=== PATIENT | male | born 1960 | race Caucasian/White ===

== ENCOUNTER 2016-07-09 15:45 | Emergency (ER) | payer MEDICARE, MEDICAID ==
[2016-07-09] MEDS ORDERED: ASPIRIN 81 MG TABLET, CHEWABLE PO ONE (15:56)
--- NOTE | 2016-07-09 16:02 | EKG REPORT ---
SEVERITY:- BORDERLINE ECG - SINUS RHYTHM BORDERLINE T ABNORMALITIES, ANT-LAT LEADS : Confirmed by: Domo Pompa 09-Jul-2016 16:02:23
--- NOTE | 2016-07-09 16:35 | ER Document Report ---
ED Cardiac - General Mode of Arrival: Medic Information source: Patient TRAVEL OUTSIDE OF THE [place] IN LAST 30 DAYS: No - HPI Patient complains to provider of: Chest pain Associated symptoms: Other - See above <KERRI NEGRETE - Last Filed: 07/09/16 16:58> <GIL HERBERT - Last Filed: 07/09/16 22:27> - General Chief Complaint: Chest Pain Stated Complaint: CHEST PAIN Notes: Patient is a 56 year old male, with a past medical history including stent placement, heart attacks, and bipolar disorder, who presents to the emergency department via EMS complaining of chest pain onset at 1400 today. Patient reports that he was standing in the kitchen making dessert when he had sudden onset chest pain in his right chest that felt like stabbing. Patient states that he then went to the bedroom to lie down and took one Nitro with no relief, then took a second with little relief. En route patient was given Nitro paste and reports he felt much better. Patent denies nausea and diaphoresis. Patient states he has not eaten anything today. Patient has a known calcified gallstone and a known stable spiculated calcified mass in his stomach. PCP: Dr. Sosa Crate Liner: Dr. Colon (KERRI NEGRETE) - Related Data Allergies/Adverse Reactions: No Known Drug Allergies Allergy (Verified 07/09/16 21:32) Cheese Allergy (Uncoded 11/12/15 12:20) VINEGAR Allergy (Uncoded 11/12/15 12:20) Hives Past Medical History - General Information source: Patient - Social History Smoking Status: Unknown if Ever Smoked Family History: DM, Reviewed & Not Pertinent - Past Medical History Cardiac Medical History: Reports: Hx Heart Attack - x3, Hx Hypercholesterolemia , Hx Hypertension Pulmonary Medical History: Reports: Hx Asthma Endocrine Medical History: Reports: Hx Diabetes Mellitus Type 2 Musculoskeltal Medical History: Reports Hx Arthritis, Reports Hx Musculoskeletal Deformity, Reports Hx Musculoskeletal Trauma Psychiatric Medical History: Reports: Hx Bipolar Disorder, Hx Depression, Hx Schizophrenia Traumatic Medical History: Reports: Hx Fractures Past Surgical History: Reports: Hx Cardiac Catheterization, Hx Cardiac Surgery - stents, Hx Orthopedic Surgery - Bilateral total knee, Hx Tonsillectomy - Immunizations Immunizations up to date: Yes Hx Diphtheria, Pertussis, Tetanus Vaccination: Yes - 2013 Hx Pneumococcal Vaccination: 07/28/13 <KERRI NEGRETE - Last Filed: 07/09/16 16:58> Review of Systems - Review of Systems Constitutional: denies: Diaphoresis EENT: No symptoms reported Cardiovascular: See HPI, Chest pain Respiratory: No symptoms reported Gastrointestinal: denies: Nausea Genitourinary: No symptoms reported Male Genitourinary: No symptoms reported Musculoskeletal: No symptoms reported Skin: No symptoms reported Hematologic/Lymphatic: No symptoms reported Neurological/Psychological: No symptoms reported -: Yes All other systems reviewed and negative <KERRI NEGRETE - Last Filed: 07/09/16 16:58> Physical Exam - Vital signs Interpretation: Normal - General General appearance: Appears well, Alert - HEENT Head: Normocephalic, Atraumatic Eyes: Normal Pupils: PERRL - Respiratory Respiratory status: No respiratory distress Chest status: Nontender Breath sounds: Normal Chest palpation: Normal - Cardiovascular Rhythm: Regular Heart sounds: Normal auscultation Murmur: No - Abdominal Inspection: Normal Distension: No distension Bowel sounds: Normal Tenderness: Tender - Tenderness to palpation of RUQ Organomegaly: No organomegaly - Extremities General upper extremity: Normal inspection General lower extremity: Normal inspection. No: Edema - Neurological Neuro grossly intact: Yes Cognition: Normal Orientation: AAOx4 [place] Coma Scale Eye Opening: Spontaneous Sunil Coma Scale Verbal: Oriented Sunil Coma Scale Motor: Obeys Commands Sunil Coma Scale Total: 15 Speech: Normal - Psychological Associated symptoms: Normal affect, Normal mood - Skin Skin Temperature: Warm Skin Moisture: Dry Skin Color: Normal <KERRI NEGRETE - Last Filed: 07/09/16 16:58> Course <KERRI NEGRETE - Last Filed: 07/09/16 16:58> - Laboratory Result Diagrams: 07/09/16 20:27 07/09/16 15:56 - Diagnostic Test Radiology reviewed: Image reviewed, Reports reviewed - Gallbladder ultrasound shows a fatty liver, otherwise unremarkable study. No acute finding on portable chest x-ray. <GIL HERBERT - Last Filed: 07/09/16 22:27> - Re-evaluation Re-evalutation: 07/09/16 22:20 The patient's exam shows tenderness in the right upper quadrant on exam. Oral gallbladder ultrasound was unremarkable other than fatty liver. The EKG does not show acute ischemic changes. A troponin drawn over 7 hours after the onset of pain remains undetectable. He did describe the pain as being a tight, sharp pain in the right chest. 07/09/16 22:24 The patient is quite comfortable at this time. He is actually been napping. He does not want home, and is actually anxious to go home. (GIL HERBERT) - Vital Signs Vital signs: Temp Pulse Resp BP Pulse Ox 18 108/71 97 07/09/16 20:01 07/09/16 20:01 07/09/16 16:20 - Laboratory Laboratory results interpreted by me: 07/09/16 15:56 Glucose 166 H Discharge <KERRI NEGRETE - Last Filed: 07/09/16 16:58> <GIL HERBERT - Last Filed: 07/09/16 22:27> - Discharge Clinical Impression: Right upper quadrant abdominal pain, Right-sided chest pain Condition: Stable Disposition: HOME, SELF-CARE Additional Instructions: Abdominal Pain: There are many causes of abdominal pain. Pain can mean a serious problem requiring surgery (such as appendicitis). It can also be an innocent problem that goes away on its own (such as a viral infection). Often, time must pass to determine the cause of pain. The physician does not feel that hospitalization is necessary, at present. Things may change within the next 24 hours. Call the doctor or come back for re- examination if any problems occur, such as: (1) Pain that becomes more severe, steady, or becomes concentrated in one specific area. Also, pain that is more severe with movement or coughing. (2) Vomiting that persists or becomes more frequent. (3) Blood in the vomitus, urine, or bowel movements. Blood in the stool may have a tarry or black appearance. (4) Shaking chills or fever greater than 100 degrees F. (5) The abdomen becomes more distended or swollen. (6) Bowel movements cease. (7) Failure to improve as expected. Chest Pain of Unclear Cause: The exact cause of your chest pain isn't clear. Fortunately, there is no evidence of a dangerous medical condition. Further testing may be required to find the source of the pain. Most often, we find that this pain is coming from the chest wall -- the muscles or rib joints in the chest. But chest pain can come from the lung and lung lining, the esophagus, the heart valves or heart lining, and even the stomach or gallbladder. Rest. Eat lightly until the pain is gone. We may prescribe medicine for pain and inflammation. You should call the physician immediately if the pain radiates to the shoulder, jaw or arms; if you start to run a fever or develop a cough; or if you develop shortness of breath, or other new or alarming symptoms. CONTINUE YOUR REGULAR MEDICATIONS. REST. FOLLOW UP WITH YOUR DOCTOR TUESDAY FOR RECHECK. RETURN TO THE EMERGENCY ROOM IF ANY NEW OR WORSENING SYMPTOMS. Referrals: DONALD SOSA MD [Primary Care Provider] - 07/12/16 Scribe Attestation: 07/09/16 22:26 I personally performed the services described in the documentation, reviewed and edited the documentation which was dictated to the scribe in my presence, and it accurately records my words and actions. (GIL HERBERT) Scribe Documentation - Scribe Written by Marian:: marian Jenkins, 07/09/16, [id number] acting as scribe for :: Leila <KERRI NEGRETE - Last Filed: 07/09/16 16:58>
[2016-07-09 20:05] LABS: ALANINE AMINOTRANSFERASE 62 U/L (21-72); ALBUMIN 4.4 g/dL (3.5-5.0); ALKALINE PHOSPHATASE 78 U/L (38-126); ANION GAP 13 (5-19); ASPARTATE AMINO TRANSFERASE 56 U/L (17-59); BLOOD UREA NITROGEN 12 mg/dL (7-20); CALCIUM 9.7 mg/dL (8.4-10.2); CARBON DIOXIDE 29 mmol/L (22-30); CHLORIDE 98 mmol/L (98-107); CREATINE KINASE 87 U/L (55-170); CREATININE RESULT 0.81 mg/dL (0.52-1.25); GLUCOSE 166 mg/dL (75-110); POTASSIUM 4.1 mmol/L (3.6-5.0); SODIUM 140.4 mmol/L (137-145); TOTAL PROTEIN 7.3 g/dL (6.3-8.2)
[2016-07-09 20:40] LABS: ABSOLUTE BASOPHILS # (AUTO) 0.1 10^3/uL (0.0-0.2); ABSOLUTE EOSINOPHILS # (AUTO) 0.2 10^3/uL (0.0-0.6); ABSOLUTE LYMPHOCYTES (AUTO) 1.8 10^3/uL (0.5-4.7); ABSOLUTE MONOCYTES (AUTO) 0.5 10^3/uL (0.1-1.4); ABSOLUTE NEUT (AUTO) 4.7 10^3/uL (1.7-8.2); BASOPHILS % (AUTO) 1.5 % (0-2); EOSINOPHILS % (AUTO) 2.1 % (0-6); HEMOGLOBIN 13.9 g/dL (13.5-17.0); HGB HCT DIFFERENCE 0.7; LYMPHOCYTES % (AUTO) 24.5 % (13-45); MEAN CORPUSCULAR HEMOGLOBIN 29.6 pg (27.0-33.4); MEAN CORPUSCULAR VOLUME 87 fl (80-97); MONOCYTES % (AUTO) 7.1 % (3-13); RED BLOOD COUNT 4.71 10^6/uL (4.35-5.55); RED CELL DISTRIBUTION WIDTH 13.2 % (11.5-14.0); SEGMENTED NEUTROPHILS % (AUTO) 64.8 % (42-78); WHITE BLOOD COUNT 7.3 10^3/uL (4.0-10.5)
[2016-07-09 22:07] LABS: CREATINE KINASE MB 0.52 ng/mL (<4.55)
[2016-07-09 22:08] LABS: TROPONIN I < 0.012 ng/mL
[2016-07-09 22:37] VITALS: BP 136/85
== END 2016-07-09 22:41 | disposition home or self-care (01) ==
LOC: ER 15:45
DX: R10.11 Right upper quadrant pain (principal); R07.9 Chest pain, unspecified; I25.2 Old myocardial infarction; F31.9 Bipolar disorder, unspecified
CPT/HCPCS: 36415; 71010; 76705; 80053; 82550; 82553; 84484; 85025; 93005; 93010; 99285

== ENCOUNTER → 2016-07-12 | Outpatient (CLI) | payer MEDICARE, MEDICAID | LOC: RAD 13:58 | PROVIDERS: ATTEND Family Medicine | DX: J45.909 Unspecified asthma, uncomplicated (principal) | CPT/HCPCS: 71020 ==

== ENCOUNTER → 2016-07-19 | Outpatient (CLI) | payer MEDICARE, MEDICAID ==
[2016-07-19 14:37] LABS: ALANINE AMINOTRANSFERASE 60 U/L (21-72); ALBUMIN 4.4 g/dL (3.5-5.0); ALKALINE PHOSPHATASE 89 U/L (38-126); ASPARTATE AMINO TRANSFERASE 37 U/L (17-59); BILIRUBIN,TOTAL 0.6 mg/dL (0.2-1.3); CHOLESTEROL 160.53 mg/dL (0-200); CREATINE KINASE 41 U/L (55-170); Direct HDL 53 mg/dL (>40); TOTAL PROTEIN 7.2 g/dL (6.3-8.2); TRIGLYCERIDES 226 mg/dL (<150)
[2016-07-19 14:48] LABS: DIRECT LDL 87 mg/dL (<100)
[2016-07-19 14:50] LABS: VLDL CHOLESTEROL 45.2 mg/dL (10-31)
== END ==
LOC: OD 13:13
PROVIDERS: ATTEND Internal Medicine Cardiovascular Disease
DX: E78.00 Pure hypercholesterolemia, unspecified (principal); Z79.899 Other long term (current) drug therapy
CPT/HCPCS: 36415; 80061; 80076; 82550

== ENCOUNTER 2016-08-19 09:52 | Emergency (ER) | payer MEDICARE, MEDICAID ==
--- NOTE | 2016-08-19 10:12 | ER Document Report ---
ED Medical Screen (RME) - General Stated Complaint: FALL CHEST PAIN SHORTNESS OF BREATH Time seen by provider: 10:08 Mode of Arrival: Wheelchair Information source: Patient Notes: 56-year-old male presents to ED after a fall last night. He states he hit his chest on the couch his ribs are sore. States he had a stent put in 2-1/2 years ago and he was worried that he had hurt his stent. Lung sounds equal bilaterally CTA I have greeted and performed a rapid initial assessment of this patient. A comprehensive ED assessment and evaluation of the patient, analysis of test results and completion of medical decision making process will be conducted by an additional ED providers. TRAVEL OUTSIDE OF THE [place] IN LAST 30 DAYS: No - Related Data Allergies/Adverse Reactions: No Known Drug Allergies Allergy (Verified 07/09/16 21:32) Cheese Allergy (Uncoded 11/12/15 12:20) VINEGAR Allergy (Uncoded 11/12/15 12:20) Hives Past Medical History - Past Medical History Cardiac Medical History: Reports: Hx Heart Attack - x3, Hx Hypercholesterolemia , Hx Hypertension Pulmonary Medical History: Reports: Hx Asthma Neurological Medical History: Denies: Hx Seizures Endocrine Medical History: Reports: Hx Diabetes Mellitus Type 2 Musculoskeltal Medical History: Reports Hx Arthritis, Reports Hx Musculoskeletal Deformity, Reports Hx Musculoskeletal Trauma Psychiatric Medical History: Reports: Hx Bipolar Disorder, Hx Depression, Hx Schizophrenia Traumatic Medical History: Reports: Hx Fractures Past Surgical History: Reports: Hx Cardiac Catheterization, Hx Cardiac Surgery - stents, Hx Orthopedic Surgery - Bilateral total knee, Hx Tonsillectomy - Immunizations Immunizations up to date: Yes Hx Diphtheria, Pertussis, Tetanus Vaccination: Yes - 2013
--- NOTE | 2016-08-19 11:11 | ER Document Report ---
ED General - General Time seen by provider: 10:45 Mode of Arrival: Wheelchair Information source: Patient TRAVEL OUTSIDE OF THE [place] IN LAST 30 DAYS: No - HPI Onset: Yesterday - see HPI note; last night - General Chief Complaint: Fall Stated Complaint: FALL CHEST PAIN SHORTNESS OF BREATH Notes: Patient is a 56 year old male presenting to the emergency department for rib pain related to a fall. Patient states he tripped over a box and fell on the corner of his couch. Patient states he is having pain in his chest and rib area. Patient has a cardiac history of stents and AR. Patient's PCP is Dr. Camargo. Patient has no known drug allergies. (NASREEN,BALA) - Related Data Allergies/Adverse Reactions: No Known Drug Allergies Allergy (Verified 07/09/16 21:32) Cheese Allergy (Uncoded 08/19/16 10:08) VINEGAR Allergy (Uncoded 08/19/16 10:08) Hives Past Medical History - General Information source: Patient - Social History Smoking Status: Never Smoker Cigarette use (# per day): No Chew tobacco use (# tins/day): No Frequency of alcohol use: None Drug Abuse: None Family History: None, Reviewed & Not Pertinent, DM Patient has suicidal ideation: No Patient has homicidal ideation: No - Past Medical History Cardiac Medical History: Reports: Hx Heart Attack - x3, Hx Hypercholesterolemia , Hx Hypertension Pulmonary Medical History: Reports: Hx Asthma Endocrine Medical History: Reports: Hx Diabetes Mellitus Type 2 Musculoskeltal Medical History: Reports Hx Arthritis, Reports Hx Musculoskeletal Deformity, Reports Hx Musculoskeletal Trauma Psychiatric Medical History: Reports: Hx Bipolar Disorder, Hx Depression, Hx Schizophrenia Traumatic Medical History: Reports: Hx Fractures Past Surgical History: Reports: Hx Cardiac Catheterization, Hx Cardiac Surgery - stent x1, Hx Orthopedic Surgery - Bilateral total knee, Hx Tonsillectomy - Immunizations Immunizations up to date: Yes Hx Diphtheria, Pertussis, Tetanus Vaccination: Yes - 2013 Hx Pneumococcal Vaccination: 07/28/13 Review of Systems - Review of Systems Constitutional: No symptoms reported EENT: No symptoms reported Cardiovascular: No symptoms reported Respiratory: No symptoms reported Gastrointestinal: No symptoms reported Genitourinary: No symptoms reported Male Genitourinary: No symptoms reported Musculoskeletal: See HPI Skin: No symptoms reported Hematologic/Lymphatic: No symptoms reported Neurological/Psychological: No symptoms reported -: Yes All other systems reviewed and negative Physical Exam - Vital signs Interpretation: Normal - General General appearance: Appears well, Alert In distress: Mild - HEENT Head: Normocephalic, Atraumatic Eyes: Normal Pupils: PERRL Mucous membranes: Moist - Respiratory Respiratory status: No respiratory distress Chest status: Tender - mild anterior chest wall tenderness to palpation; no sign of trauma Breath sounds: Normal Chest palpation: Normal - Cardiovascular Rhythm: Regular Heart sounds: Normal auscultation Murmur: No - Abdominal Inspection: Normal Distension: No distension Bowel sounds: Normal Tenderness: Nontender - no splenic pain. No: Guarding, Rebound Organomegaly: No organomegaly - Back Back: Normal, Nontender - Extremities General upper extremity: Normal inspection, Normal ROM, Normal strength General lower extremity: Normal inspection, Normal ROM, Normal strength - Neurological Neuro grossly intact: Yes Cognition: Normal Orientation: AAOx4 Sunil Coma Scale Eye Opening: Spontaneous Sunil Coma Scale Verbal: Oriented Sunil Coma Scale Motor: Obeys Commands Sunil Coma Scale Total: 15 Speech: Normal - Psychological Associated symptoms: Normal affect, Normal mood - Skin Skin Temperature: Warm Skin Moisture: Dry Course - Re-evaluation Re-evalutation: 08/19/16 20:35 I personally performed the services described in the documentation, reviewed and edited the documentation which was dictated to my scribe in my presence, and it accurately records my words and actions. Patient presents to the emergency department with left chest wall pain he tripped over a box striking the left side of his ribs on the couch. He did not hit his head or lose consciousness no head neck back abdominal or lower extremity pain. On examination well-appearing nontoxic no acute distress no external signs of bruising or reproducible tenderness on examination x-ray attention ribs negative. Patient will be discharged a few days with the pain medication he takes without driving or operating machinery for primary care physician to 3 days and discussed reasons for ED return sooner (VIELKA COLEMAN) - Vital Signs Vital signs: Temp Pulse Resp BP Pulse Ox 98.2 F 74 16 124/106 H 96 08/19/16 11:32 08/19/16 11:32 08/19/16 11:32 08/19/16 11:32 08/19/16 11:32 Discharge - Discharge Clinical Impression: mechanical fall, Contusion of rib on left side Condition: Stable Disposition: HOME, SELF-CARE Additional Instructions: Contusion rib Your injury has resulted in a contusion -- a crushing of the deep tissues. No injury to important structures was detected during the physician's exam. Contusions vary in the amount of pain they cause, and in the length of time required for healing. Typically, the area will become bruised, and will remain painful to touch for two or three weeks. However, most patients are back to working and playing within a few days. After the initial period of rest and cold-packs, your symptoms (together with the doctor's recommendations) will determine how rapidly you can get back to full activity. Usually this means "do what feels okay, but don't do things that hurt." If re-examination was recommended, it's important to follow up as instructed. Call the doctor or return any time if pain increases, if swelling becomes severe, if you develop numbness or weakness in an injured extremity, or if any other alarming symptoms occur. Follow-up with your primary care physician in 2-3 days return for increasing worsening or new symptoms Prescriptions: Hydrocodone/Acetaminophen [[place] 5-325 mg Tablet] 1 tab PO TID #12 tablet Referrals: DONALD CAMARGO MD [Primary Care Provider] - Follow up as needed Scribe Documentation - Scribe Written by Shreya:: Bala Maher 08/19/16 15:15 acting as scribe for :: Jewel
--- NOTE | 2016-08-19 11:14 | EKG REPORT ---
SEVERITY:- BORDERLINE ECG - SINUS RHYTHM BORDERLINE T WAVE ABNORMALITIES : Confirmed by: Domo Pompa 19-Aug-2016 11:12:46
[2016-08-19 11:35] VITALS: BP 124/106
== END 2016-08-19 11:34 | disposition home or self-care (01) ==
LOC: ER 09:52
DX: S20.212A Contusion of left front wall of thorax, initial encounter (principal); R06.02 Shortness of breath; W01.190A Fall on same level from slipping, tripping and stumbling with subsequent striking against furniture, initial encounter; E78.00 Pure hypercholesterolemia, unspecified; I10 Essential (primary) hypertension; J45.909 Unspecified asthma, uncomplicated; E11.9 Type 2 diabetes mellitus without complications; Z96.653 Presence of artificial knee joint, bilateral; I25.2 Old myocardial infarction
CPT/HCPCS: 71111; 93005; 93010; 99285

== ENCOUNTER → 2016-09-07 | Outpatient (CLI) | payer MEDICARE, MEDICAID | LOC: RAD 15:17 | PROVIDERS: ATTEND Orthopaedic Surgery Sports Medicine | DX: M25.511 Pain in right shoulder (principal); M75.51 Bursitis of right shoulder ==

== ENCOUNTER → 2016-10-04 | Outpatient (CLI) | payer MEDICARE, MEDICAID ==
--- NOTE | 2016-10-04 19:45 | XCELERA REPORT ---
[address] [address] Transthoracic Echocardiogram Report Name: YURY BAZAN Age: 56 yrs Gender: Male : 1960 Patient Status: Outpatient Patient Location: Study Date: 10/04/2016 01:06 PM Height: 69 in Weight: 319 lb BSA: 2.5 m2 Reason For Study: SOB, CAD Ordering Physician: GRZEGORZ THEODORE Performed By: Danilo Giles Interpretation Summary LVEF is 60-65% with stage I LVDD with no LV enlargement. RWMA showed IVS hypokinesis and basal inferior wall, other segments normal. Elelvated RVSP <40 mm Hg mild pulm hypertension, with no RVE or SANTIAGO or RVSD. AV, MV normal. TV and PV not well seen. Min small posterior pericardial effusion. MMode/2D Measurements \T\ Calculations RVDd: 3.2 cm LVIDd: 5.5 cm FS: 36.1 % Ao root diam: 3.0 cm IVSd: 0.94 cm LVIDs: 3.5 cm EDV(Teich): 147.5 ml LVPWd: 0.97 cm ESV(Teich): 51.5 ml Ao root area: 6.9 cm2 EF(Teich): 65.1 % LA dimension: 3.6 cm Doppler Measurements \T\ Calculations MV E max penelope: MV P1/2t max penelope: Ao V2 max: LV V1 max P.0 cm/sec 47.7 cm/sec 116.7 cm/sec 3.7 mmHg MV A max penelope: MV P1/2t: 60.5 msec Ao max PG: LV V1 max: 58.1 cm/sec 5.5 mmHg 96.8 cm/sec MV E/A: 0.83 MVA(P1/2t): 3.6 cm2 MV dec slope: 230.9 cm/sec2 PA V2 max: TR max penelope: RAP systole: 109.0 cm/sec 277.1 cm/sec 10.0 mmHg PA max PG: TR max P.7 mmHg 4.8 mmHg RVSP(TR): 40.7 mmHg Left Ventricle The left ventricle is normal in size. There is normal left ventricular wall thickness. The left ventricular ejection fraction is normal. LV EF is 60- 65%. Doppler measurements suggest impaired left ventricular relaxation, which is associated with grade I/IV or mild diastolic dysfunction. There is septal wall mild hypokinesis. There is basal inferior wall moderate hypokinesis. There is no thrombus. Right Ventricle The right ventricle is normal in size, thickness and function. The right ventricular systolic function is normal. Atria Right atrium not well visualized secondary to technical limitations. The left atrial size is normal. The interatrial septum is intact with no evidence for an atrial septal defect. Mitral Valve The mitral valve is normal in structure and function. There is no evidence of mitral valve prolapse. There is no mitral valve stenosis. There is a trace amount of mitral regurgitation. Aortic Valve The aortic valve is normal in structure and functions normally. The aortic valve is trileaflet. Cannot exclude aortic valvular vegetation. There is no aortic valve stenosis. No aortic regurgitation is present. Tricuspid Valve The tricuspid valve is not well visualized secondary to technical limitations. There is a trace to mild amount of tricuspid regurgitation. Right ventricular systolic pressure is estimated to be elevated at 30- 40mmHg. Pulmonic Valve There is no pulmonic valvular regurgitation. Great Vessels The aortic root is normal size. Effusions Small pericardial effusion. I WMSI = 1.38 % Normal = 63 Segments Size X - Cannot 1 - Normal 2 - 3 - Akinetic4 - 1-2 small Interpret Hypokinetic Dyskinetic 3-5 moderate 5 - 6-14 large Aneurysmal 15-16 diffuse : GRZEGORZ THEODORE > Grzegorz Theodore
== END ==
LOC: SP 12:06
PROVIDERS: ATTEND Internal Medicine Cardiovascular Disease
DX: I25.10 Atherosclerotic heart disease of native coronary artery without angina pectoris (principal); R06.02 Shortness of breath
CPT/HCPCS: 93306

== ENCOUNTER → 2016-10-06 | Outpatient (CLI) | payer MEDICARE, MEDICAID ==
[2016-10-06 10:14] LABS: ANION GAP 13 (5-19); BLOOD UREA NITROGEN 10 mg/dL (7-20); CALCIUM 9.3 mg/dL (8.4-10.2); CARBON DIOXIDE 24 mmol/L (22-30); CHLORIDE 104 mmol/L (98-107); GLUCOSE 271 mg/dL (75-110); POTASSIUM 4.8 mmol/L (3.6-5.0); SODIUM 141.1 mmol/L (137-145)
== END ==
LOC: OD 09:12
PROVIDERS: ATTEND Internal Medicine Cardiovascular Disease
DX: Z51.81 Encounter for therapeutic drug level monitoring (principal); Z79.899 Other long term (current) drug therapy
CPT/HCPCS: 36415; 80048

== ENCOUNTER 2017-04-29 14:50 | Emergency (ER) | payer MEDICARE, MEDICAID ==
--- NOTE | 2017-04-29 15:29 | ER Document Report ---
ED Medical Screen (RME) - General Chief Complaint: Weakness Stated Complaint: BODY WEAKNESS Time Seen by Provider: 04/29/17 15:25 Notes: Patient says he has been feeling sick for about 3 weeks. Complains of dizziness , blood sugar keeps going up and down, weak, sleeping a lot. He saw his primary care physician, Dr. Sosa, 2 days ago in the office, but failed to tell him about sleeping a lot or dizziness. Dr. Sosa prescribed him some medication for anxiety for the shakes which the patient has and the patient says that has helped the shakes. Patient denies any chest pains. Denies any abdominal pains or vomiting but says he has had some diarrhea. Has had a cough with some yellow phlegm for 3 days. Has not had a fever. Denies any surgeries. TRAVEL OUTSIDE OF THE [place] IN LAST 30 DAYS: No - Related Data Allergies/Adverse Reactions: No Known Drug Allergies Allergy (Verified 04/29/17 14:56) Cheese Allergy (Uncoded 04/29/17 14:56) VINEGAR Allergy (Uncoded 04/29/17 14:56) Hives Past Medical History - Past Medical History Cardiac Medical History: Reports: Hx Heart Attack - x3, Hx Hypercholesterolemia , Hx Hypertension Pulmonary Medical History: Reports: Hx Asthma, Hx Sleep Apnea Endocrine Medical History: Reports: Hx Diabetes Mellitus Type 2 Renal/ Medical History: Denies: Hx Peritoneal Dialysis Musculoskeltal Medical History: Reports Hx Arthritis, Reports Hx Musculoskeletal Deformity, Reports Hx Musculoskeletal Trauma Psychiatric Medical History: Reports: Hx Bipolar Disorder, Hx Depression, Hx Schizophrenia Traumatic Medical History: Reports: Hx Fractures Past Surgical History: Reports: Hx Cardiac Catheterization, Hx Cardiac Surgery - stent x1, Hx Orthopedic Surgery - Bilateral total knee, Hx Tonsillectomy - Immunizations Immunizations up to date: Yes Hx Diphtheria, Pertussis, Tetanus Vaccination: Yes - 2013 Physical Exam - Vital signs Vitals: Temp Pulse Resp BP Pulse Ox 98.0 F 74 18 146/86 H 94 04/29/17 14:53 04/29/17 14:53 04/29/17 14:53 04/29/17 14:53 04/29/17 14:53 Course - Vital Signs Vital signs: Temp Pulse Resp BP Pulse Ox 98.0 F 74 18 146/86 H 94 04/29/17 14:53 04/29/17 14:53 04/29/17 14:53 04/29/17 14:53 04/29/17 14:53
[2017-04-29 16:35] LABS: APPEARANCE,URINE CLEAR; BILIRUBIN,URINE NEGATIVE (NEGATIVE); GLUCOSE, URINE >=500 mg/dL (NEGATIVE); KETONES,URINE NEGATIVE (NEGATIVE); LEUKOCYTE ESTERASE,URINE NEGATIVE (NEGATIVE); NITRITE,URINE NEGATIVE (NEGATIVE); PROTEIN,URINE NEGATIVE (NEGATIVE); URINE SPECIFIC GRAVITY 1.015; UROBILINOGEN,URINE NEGATIVE mg/dL (<2.0)
--- NOTE | 2017-04-29 16:36 | RADIOLOGY REPORT (SQ) ---
EXAM DESCRIPTION: CHEST PA/LAT COMPLETED DATE/TIME: 04/29/2017 4:26 pm REASON FOR STUDY: Cough with production of phlegm. COMPARISON: 07/12/2016 EXAM PARAMETERS: NUMBER OF VIEWS: two views TECHNIQUE: Digital Frontal and Lateral radiographic views of the chest acquired. RADIATION DOSE: NA LIMITATIONS: none FINDINGS: LUNGS AND PLEURA: No opacities, masses or pneumothorax. No pleural effusion. MEDIASTINUM AND HILAR STRUCTURES: No masses or contour abnormalities. HEART AND VASCULAR STRUCTURES: Heart normal size. No evidence for failure. BONES: No acute findings. HARDWARE: None in the chest. OTHER: No other significant finding. IMPRESSION: NO SIGNIFICANT RADIOGRAPHIC FINDING IN THE CHEST. TECHNICAL DOCUMENTATION: JOB ID: [id number] [employer]- All Rights Reserved
[2017-04-29 16:56] LABS: ALANINE AMINOTRANSFERASE 46 U/L (21-72); ALBUMIN 4.1 g/dL (3.5-5.0); ALKALINE PHOSPHATASE 98 U/L (38-126); ANION GAP 12 (5-19); ASPARTATE AMINO TRANSFERASE 39 U/L (17-59); BILIRUBIN,DIRECT 0.4 mg/dL (0.0-0.4); BILIRUBIN,TOTAL 0.5 mg/dL (0.2-1.3); BLOOD UREA NITROGEN 14 mg/dL (7-20); CARBON DIOXIDE 32 mmol/L (22-30); CHLORIDE 99 mmol/L (98-107); CREATININE RESULT 0.95 mg/dL (0.52-1.25); GLUCOSE 216 mg/dL (75-110); POTASSIUM 4.4 mmol/L (3.6-5.0); SODIUM 142.6 mmol/L (137-145); TOTAL PROTEIN 6.9 g/dL (6.3-8.2)
[2017-04-29 17:38] LABS: ABSOLUTE BASOPHILS # (AUTO) 0.1 10^3/uL (0.0-0.2); ABSOLUTE EOSINOPHILS # (AUTO) 0.2 10^3/uL (0.0-0.6); ABSOLUTE MONOCYTES (AUTO) 0.5 10^3/uL (0.1-1.4); ABSOLUTE NEUT (AUTO) 5.9 10^3/uL (1.7-8.2); BASOPHILS % (AUTO) 0.8 % (0-2); EOSINOPHILS % (AUTO) 2.1 % (0-6); HEMATOCRIT 41.3 % (37.9-51.0); HEMOGLOBIN 14.1 g/dL (13.5-17.0); MEAN CORPUSCULAR HGB CONC 34.2 g/dL (32.0-36.0); MEAN CORPUSCULAR VOLUME 88 fl (80-97); RED BLOOD COUNT 4.71 10^6/uL (4.35-5.55); RED CELL DISTRIBUTION WIDTH 13.4 % (11.5-14.0); SEGMENTED NEUTROPHILS % (AUTO) 68.1 % (42-78); WHITE BLOOD COUNT 8.7 10^3/uL (4.0-10.5)
[2017-04-29 18:08] LABS: CREATINE KINASE MB 0.52 ng/mL (<4.55)
[2017-04-29 18:11] LABS: TROPONIN I < 0.012 ng/mL
--- NOTE | 2017-04-29 18:21 | ER Document Report ---
ED General - General Chief Complaint: Weakness Stated Complaint: BODY WEAKNESS Time Seen by Provider: 04/29/17 15:25 Mode of Arrival: Ambulatory Information source: Patient Notes: 56-year-old male presents with complaints of generalized weakness cough of 3 week duration. Patient denies any fevers or chills denies any nausea vomiting or diarrhea. Patient was seen by primary care physician believed to be viral in nature. Patient does admit to productive yellow cough. Patient is on multiple other medications but denies any current shortness of breath TRAVEL OUTSIDE OF THE [place] IN LAST 30 DAYS: No - HPI Onset: Other - 3 week duration Onset/Duration: Persistent Quality of pain: No pain Severity: Mild Pain Level: Denies Associated symptoms: Productive cough, Shortness of breath Exacerbated by: Denies Relieved by: Denies Similar symptoms previously: Yes Recently seen / treated by doctor: Yes - Related Data Allergies/Adverse Reactions: No Known Drug Allergies Allergy (Verified 04/29/17 14:56) Cheese Allergy (Uncoded 04/29/17 14:56) VINEGAR Allergy (Uncoded 04/29/17 14:56) Hives Past Medical History - Social History Smoking Status: Never Smoker Cigarette use (# per day): No Chew tobacco use (# tins/day): No Smoking Education Provided: No Frequency of alcohol use: None Drug Abuse: None Family History: Arthritis, CAD, DM, Hyperlipidemia, Hypertension. denies: COPD , CVA, Malignancy, Thyroid Disfunction Patient has suicidal ideation: No Patient has homicidal ideation: No - Past Medical History Cardiac Medical History: Reports: Hx Heart Attack - x3, Hx Hypercholesterolemia , Hx Hypertension Pulmonary Medical History: Reports: Hx Asthma, Hx Sleep Apnea Endocrine Medical History: Reports: Hx Diabetes Mellitus Type 2 Renal/ Medical History: Denies: Hx Peritoneal Dialysis Musculoskeltal Medical History: Reports Hx Arthritis, Reports Hx Musculoskeletal Deformity, Reports Hx Musculoskeletal Trauma Psychiatric Medical History: Reports: Hx Bipolar Disorder, Hx Depression, Hx Schizophrenia Traumatic Medical History: Reports: Hx Fractures Past Surgical History: Reports: Hx Cardiac Catheterization, Hx Cardiac Surgery - stent x1, Hx Orthopedic Surgery - Bilateral total knee, Hx Tonsillectomy - Immunizations Immunizations up to date: Yes Hx Diphtheria, Pertussis, Tetanus Vaccination: Yes - 2013 Hx Pneumococcal Vaccination: 07/28/13 Review of Systems - Review of Systems Notes: REVIEW OF SYSTEMS: CONSTITUTIONAL : Denies fever, chills, or sweats. Denies recent illness. EENT: Denies eye, ear, throat, or mouth pain or symptoms. Denies nasal or sinus congestion or discharge. Denies throat, tongue, or mouth swelling or difficulty swallowing. CARDIOVASCULAR: Denies chest pain. Denies palpitations or racing or irregular heart beat. Denies ankle edema. RESPIRATORY: Admits to cough GASTROINTESTINAL: Denies abdominal pain or distention. Denies nausea, vomiting , or diarrhea. Denies blood in vomitus, stools, or per rectum. Denies black, tarry stools. Denies constipation. GENITOURINARY: Denies difficulty urinating, painful urination, burning, frequency, blood in urine, or discharge. MUSCULOSKELETAL: Denies back or neck pain or stiffness. Denies joint pain or swelling. SKIN: Denies rash, lesions or sores. HEMATOLOGIC : Denies easy bruising or bleeding. LYMPHATIC: Denies swollen, enlarged glands. NEUROLOGICAL: Admits to dizziness PSYCHIATRIC: Denies anxiety or stress. Denies depression, suicidal ideation, or homicidal ideation. ALL OTHER SYSTEMS REVIEWED AND NEGATIVE. Dictation was performed using [employer] voice recognition software PHYSICAL EXAMINATION: GENERAL: Well-appearing, well-nourished and in no acute distress. HEAD: Atraumatic, normocephalic. EYES: Pupils equal round and reactive to light, extraocular movements intact, sclera anicteric, conjunctiva are normal. ENT: Nares patent, oropharynx clear without exudates. Moist mucous membranes. NECK: Normal range of motion, supple without lymphadenopathy LUNGS: Breath sounds clear to auscultation bilaterally and equal. No wheezes rales or rhonchi. HEART: Regular rate and rhythm without murmurs ABDOMEN: Soft, nontender, nondistended abdomen. No guarding, no rebound. No masses appreciated. Musculoskeletal: Normal range of motion, no pitting or edema. No cyanosis. NEUROLOGICAL: Cranial nerves grossly intact. Normal speech, normal gait. Normal sensory, motor exams PSYCH: Normal mood, normal affect. SKIN: Warm, Dry, normal turgor, no rashes or lesions noted. Physical Exam - Vital signs Vitals: Temp Pulse Resp BP Pulse Ox 98.0 F 74 18 146/86 H 94 04/29/17 14:53 04/29/17 14:53 04/29/17 14:53 04/29/17 14:53 04/29/17 14:53 Course - Re-evaluation Re-evalutation: 04/29/17 20:00 Patient overall looks quite well, physical examination was very benign he is satting 100% on room air is in no distress. Given that he has had a productive cough that has been ongoing for 3 weeks I will treat him as if there is an occult pneumonia. Patient is very happy with this plan family members are in the room and agree with discharge home. They have been instructed to return immediately if there are any other concerns After performing a Medical Screening Examination, I estimate there is LOW risk for ACUTE CORONARY SYNDROME, PULMONARY EMBOLI, RESPIRATORY FAILURE, SEPSIS OR MENINGITIS, thus I consider the discharge disposition reasonable. I have reevaluated this patient multiple times and no significant life threatening changes are noted. The patient and I have discussed the diagnosis and risks, and we agree with discharging home with close follow-up. We also discussed returning to the Emergency Department immediately if new or worsening symptoms occur. We have discussed the symptoms which are most concerning (e.g., changing or worsening pain, trouble swallowing or breathing, neck stiffness, fever) that necessitate immediate return. - Vital Signs Vital signs: Temp Pulse Resp BP Pulse Ox 97.5 F 75 18 119/75 95 04/29/17 19:28 04/29/17 19:28 04/29/17 14:53 04/29/17 19:00 04/29/17 19:01 - Laboratory Result Diagrams: 04/29/17 17:23 04/29/17 16:15 Laboratory results interpreted by me: 04/29/17 04/29/17 16:15 16:15 Carbon Dioxide 32 H Glucose 216 H Urine Glucose (UA) >=500 H Discharge - Discharge Clinical Impression: Generalized weakness, Bronchitis Condition: Stable Disposition: HOME, SELF-CARE Instructions: Pneumonia ([facility]) Prescriptions: Levofloxacin [Levaquin 750 mg Tablet] 750 mg PO DAILY #5 tab Referrals: DONALD CAMARGO MD [Primary Care Provider] - Follow up tomorrow
[2017-04-29 19:19] VITALS: BP 119/75
--- NOTE | 2017-04-30 14:02 | EKG REPORT ---
SEVERITY:- DEFECTIVE ECG - ARTIFACTS REPEAT EKG : Confirmed by: Sarai Castellanos MD 30-Apr-2017 14:01:40
== END 2017-04-29 19:28 | disposition home or self-care (01) ==
LOC: ER 14:50
DX: R53.1 Weakness (principal); J40 Bronchitis, not specified as acute or chronic; R42 Dizziness and giddiness; E78.00 Pure hypercholesterolemia, unspecified; I10 Essential (primary) hypertension; E11.9 Type 2 diabetes mellitus without complications; I25.2 Old myocardial infarction
CPT/HCPCS: 36415; 71020; 80053; 81001; 82553; 84484; 85025; 93005; 93010; 99285

== ENCOUNTER → 2017-07-01 | Outpatient (CLI) | payer MEDICARE, MEDICAID ==
[2017-07-01 11:19] LABS: ALANINE AMINOTRANSFERASE 57 U/L (21-72); ALBUMIN 4.2 g/dL (3.5-5.0); ALKALINE PHOSPHATASE 94 U/L (38-126); ANION GAP 10 (5-19); ASPARTATE AMINO TRANSFERASE 36 U/L (17-59); BILIRUBIN,DIRECT 0.1 mg/dL (0.0-0.4); BILIRUBIN,TOTAL 0.6 mg/dL (0.2-1.3); BLOOD UREA NITROGEN 11 mg/dL (7-20); CALCIUM 9.8 mg/dL (8.4-10.2); CARBON DIOXIDE 28 mmol/L (22-30); CHLORIDE 98 mmol/L (98-107); CHOLESTEROL 134.39 mg/dL (0-200); GLUCOSE 311 mg/dL (75-110); POTASSIUM 4.7 mmol/L (3.6-5.0); TRIGLYCERIDES 145 mg/dL (<150)
[2017-07-01 11:29] LABS: DIRECT LDL 68 mg/dL (<100)
== END ==
LOC: OD 09:55
PROVIDERS: ATTEND Internal Medicine Cardiovascular Disease
DX: E78.00 Pure hypercholesterolemia, unspecified (principal); I10 Essential (primary) hypertension; E11.65 Type 2 diabetes mellitus with hyperglycemia; Z79.899 Other long term (current) drug therapy
CPT/HCPCS: 36415; 80048; 80061; 80076

== ENCOUNTER 2017-10-28 12:24 | Emergency (ER) | payer MEDICARE, MEDICAID ==
[2017-10-28 13:28] LABS: APPEARANCE,URINE CLEAR; BILIRUBIN,URINE NEGATIVE (NEGATIVE); COLOR,URINE STRAW; GLUCOSE, URINE >=500 mg/dL (NEGATIVE); KETONES,URINE NEGATIVE (NEGATIVE); PROTEIN,URINE NEGATIVE (NEGATIVE); URINE SPECIFIC GRAVITY 1.029; UROBILINOGEN,URINE NEGATIVE mg/dL (<2.0)
[2017-10-28 13:29] LABS: LEUKOCYTE ESTERASE,URINE NEGATIVE (NEGATIVE); NITRITE,URINE NEGATIVE (NEGATIVE)
--- NOTE | 2017-10-28 13:30 | ER Document Report ---
ED Blood Sugar Problem - General Mode of Arrival: Ambulatory Information source: Patient TRAVEL OUTSIDE OF THE [place] IN LAST 30 DAYS: No <LUIS KNOX - Last Filed: 10/28/17 13:35> <CANDELARIA ACEVEDO - Last Filed: 10/28/17 16:22> - General Chief Complaint: High Blood Sugar Stated Complaint: BLADDER ISSUES Time Seen by Provider: 10/28/17 13:13 Notes: 57 y.o male with type 2 DM for which he uses insulin. Pt presents to the ED with high blood sugar today with a BGL in the 500s and urinary incontinence prior to arrival. Pt reports that he was not feeling well and went to his doctor who checked his BGL and once he told him he was having trouble controlling his bladder his doctor referred him to the ED. Pt reports that he has had increased urinary frequency for the past couple of weeks and reports that he cannot be around water without having to urinate. Pt states the frequency is the same whether he is lying flat and resting or standing. Pt denies any problems with BMs, back pain or pain down his legs. He denies any hx of back surgeries and denies ever needing to self catheterize at home but admits to being catheterized once before in the hospital. Pt also notes blurred vision. He denies any fever or NVD. Pt reports having stents and reports a stress test on the Oct 24 2017. He also states that he has prostate issues for which he takes medications but reports that he was without problems until these last two weeks when he started to experience frequency. (LUIS KNOX) - Related Data Allergies/Adverse Reactions: No Known Drug Allergies Allergy (Verified 04/29/17 14:56) Cheese Allergy (Uncoded 04/29/17 14:56) VINEGAR Allergy (Uncoded 04/29/17 14:56) Hives Past Medical History - General Information source: Patient - Social History Smoking Status: Never Smoker Cigarette use (# per day): No Chew tobacco use (# tins/day): No Smoking Education Provided: No Frequency of alcohol use: None Drug Abuse: None Family History: Arthritis, CAD, DM, Hyperlipidemia, Hypertension. denies: COPD , CVA, Malignancy, Thyroid Disfunction - Past Medical History Cardiac Medical History: Reports: Hx Heart Attack - x3, Hx Hypercholesterolemia , Hx Hypertension Pulmonary Medical History: Reports: Hx Asthma, Hx Sleep Apnea Endocrine Medical History: Reports: Hx Diabetes Mellitus Type 2 Renal/ Medical History: Denies: Hx Peritoneal Dialysis Musculoskeltal Medical History: Reports Hx Arthritis, Reports Hx Musculoskeletal Deformity, Reports Hx Musculoskeletal Trauma Psychiatric Medical History: Reports: Hx Bipolar Disorder, Hx Depression, Hx Schizophrenia Traumatic Medical History: Reports: Hx Fractures Past Surgical History: Reports: Hx Cardiac Catheterization, Hx Cardiac Surgery - stent x1, Hx Orthopedic Surgery - Bilateral total knee, Hx Tonsillectomy - Immunizations Immunizations up to date: Yes Hx Diphtheria, Pertussis, Tetanus Vaccination: Yes - 2013 Hx Pneumococcal Vaccination: 07/28/13 <LUIS KNOX - Last Filed: 10/28/17 13:35> Review of Systems - Review of Systems Constitutional: See HPI, Recent illness - High BGL. denies: Fever EENT: See HPI, Blurred vision Cardiovascular: No symptoms reported Respiratory: No symptoms reported Gastrointestinal: See HPI. denies: Diarrhea, Nausea, Vomiting Genitourinary: See HPI, Frequency, Incontinence Male Genitourinary: No symptoms reported Musculoskeletal: No symptoms reported Skin: No symptoms reported Hematologic/Lymphatic: No symptoms reported Neurological/Psychological: No symptoms reported -: Yes All other systems reviewed and negative <LUIS KNOX - Last Filed: 10/28/17 13:35> Physical Exam <LUIS KNOX - Last Filed: 10/28/17 13:35> <CANDELARIA ACEVEDO - Last Filed: 10/28/17 16:22> - Vital signs Vitals: Temp Pulse Resp BP Pulse Ox 98.7 F 91 16 162/82 H 95 10/28/17 12:28 10/28/17 12:28 10/28/17 12:28 10/28/17 12:28 10/28/17 12:28 - Notes Notes: PHYSICAL EXAM GENERAL: Alert, interacts well. No acute distress. HEAD: Normocephalic, atraumatic. EYES: Pupils equal, round, and reactive to light. Extraocular movements intact. ENT: Oral mucosa moist, tongue midline. NECK: Full range of motion. Supple. Trachea midline. LUNGS: Clear to auscultation bilaterally, no wheezes, rales, or rhonchi. No respiratory distress. HEART: Mild tachycardic rate with mild ectopy. No murmurs, gallops, or rubs. ABDOMEN: Obese. Soft, non-tender. Bowel sounds present in all 4 quadrants. No guarding, rebound, or rigidity. EXTREMITIES: Moves all 4 extremities spontaneously. No edema, radial and dorsalis pedis pulses 2/4 bilaterally. No cyanosis. NEUROLOGICAL: Alert and oriented x3. Normal speech. Biceps and patellar DTRs 2+ bilaterally. PSYCH: Normal affect, normal mood. SKIN: Warm, dry, normal turgor. No rashes or lesions noted. GENITOURINARY: Wet spots around the groin of his pants consistent with urinary incontinence. (LUIS KNOX) Course <LUIS KNOX - Last Filed: 10/28/17 13:35> - Laboratory Result Diagrams: 10/28/17 13:43 10/28/17 13:43 <CANDELARIA ACEVEDO - Last Filed: 10/28/17 16:22> - Re-evaluation Re-evalutation: 10/28/17 15:49 CBC unremarkable, blood gas is not acidotic, chemistries only show elevated glucose of 433 which patient's primary care physician says is not incredibly for out of the ordinary for the patient. Patient has insulin at home. No evidence of metabolic acidosis, there is glucose in the urine but no ketones also no evidence of infection. Patient had a Loo catheter placed and there is no evidence of urinary retention. No evidence of overflow incontinence. Discussed case with Dr. Sosa the patient's primary care physician and he states that he will have the patient follow-up with him in the office next week and will arrange follow-up with the urologist as well. We will leave the Loo catheter in place currently so that the patient does not have continuing incontinence. Patient will be discharged to home. 10/28/17 15:50 Patient is already taking Flomax. (CANDELARIA ACEVEDO) - Vital Signs Vital signs: Temp Pulse Resp BP Pulse Ox 98.7 F 91 15 130/77 H 96 10/28/17 12:28 10/28/17 12:28 10/28/17 16:01 10/28/17 16:00 10/28/17 16:01 - Laboratory Laboratory results interpreted by me: 10/28/17 10/28/17 13:03 13:43 Glucose 433 H* Urine Glucose (UA) >=500 H Discharge <LUIS KNOX - Last Filed: 10/28/17 13:35> <CANDELARIA ACEVEDO - Last Filed: 10/28/17 16:22> - Discharge Clinical Impression: Hyperglycemia due to type 2 diabetes mellitus Qualifiers: Diabetes mellitus intermediate insulin use: with intermediate use Qualified Code(s): E11.65 - Type 2 diabetes mellitus with hyperglycemia Urinary incontinence Qualifiers: Urinary Incontinence type: unspecified incontinence Qualified Code(s): R32 - Unspecified urinary incontinence Disposition: HOME, SELF-CARE Additional Instructions: Today we did not find any signs of infection. I do not have an explanation for why you are experiencing incontinence (difficulty holding your urine). We have left a Loo catheter in place so you do not continue to have incontinence. Please follow-up with Dr. Sosa next week, he will set you up with a urologist who will help to determine why you are having incontinence. Please continue using your insulin as directed. Do not change any of your other medications. Referrals: DONALD SOSA MD [Primary Care Provider] - Follow up in 3-5 days Scribe Attestation: 10/28/17 16:22 I personally performed the services described in the documentation, reviewed and edited the documentation which was dictated to the scribe in my presence, and it accurately records my words and actions. (CANDELARIA ACEVEDO) Scribe Documentation - Scribe Written by Shreya:: Shreya Castro [id number] 10/28/17 acting as scribe for :: Henrique <LUIS KNOX - Last Filed: 10/28/17 13:35>
[2017-10-28 14:10] LABS: ABSOLUTE BASOPHILS # (AUTO) 0.1 10^3/uL (0.0-0.2); ABSOLUTE LYMPHOCYTES (AUTO) 1.6 10^3/uL (0.5-4.7); ABSOLUTE MONOCYTES (AUTO) 0.4 10^3/uL (0.1-1.4); ABSOLUTE NEUT (AUTO) 5.1 10^3/uL (1.7-8.2); BASOPHILS % (AUTO) 0.7 % (0-2); EOSINOPHILS % (AUTO) 0.5 % (0-6); HEMATOCRIT 42.7 % (37.9-51.0); HEMOGLOBIN 14.8 g/dL (13.5-17.0); LYMPHOCYTES % (AUTO) 21.8 % (13-45); MEAN CORPUSCULAR HEMOGLOBIN 29.9 pg (27.0-33.4); MEAN CORPUSCULAR HGB CONC 34.6 g/dL (32.0-36.0); MEAN CORPUSCULAR VOLUME 86 fl (80-97); MONOCYTES % (AUTO) 6.1 % (3-13); PLATELET COUNT 204 10^3/uL (150-450); RED BLOOD COUNT 4.95 10^6/uL (4.35-5.55); RED CELL DISTRIBUTION WIDTH 13.6 % (11.5-14.0); SEGMENTED NEUTROPHILS % (AUTO) 70.9 % (42-78); TOTAL CELLS COUNTED % (AUTO) 100 %; WHITE BLOOD COUNT 7.2 10^3/uL (4.0-10.5)
[2017-10-28 14:11] LABS: VENOUS BLOOD BASE EXCESS 0.2 mmol/L; VENOUS BLOOD PCO2 41.3 mmHg (35-63); VENOUS BLOOD PH 7.4 (7.30-7.42)
[2017-10-28 14:33] LABS: ALANINE AMINOTRANSFERASE 71 U/L (21-72); ALKALINE PHOSPHATASE 89 U/L (38-126); ANION GAP 11 (5-19); ASPARTATE AMINO TRANSFERASE 49 U/L (17-59); BILIRUBIN,DIRECT 0.3 mg/dL (0.0-0.4); BILIRUBIN,TOTAL 0.6 mg/dL (0.2-1.3); BLOOD UREA NITROGEN 11 mg/dL (7-20); CALCIUM 9.4 mg/dL (8.4-10.2); CARBON DIOXIDE 25 mmol/L (22-30); CHLORIDE 102 mmol/L (98-107); POTASSIUM 4.2 mmol/L (3.6-5.0); SODIUM 138.2 mmol/L (137-145); TOTAL PROTEIN 6.8 g/dL (6.3-8.2)
[2017-10-28 14:45] LABS: GLUCOSE 433 mg/dL (75-110)
[2017-10-28 16:15] VITALS: BP 130/77
== END 2017-10-28 16:14 | disposition home or self-care (01) ==
LOC: ER 12:24
DX: E11.65 Type 2 diabetes mellitus with hyperglycemia (principal); R32 Unspecified urinary incontinence; E78.00 Pure hypercholesterolemia, unspecified; I10 Essential (primary) hypertension; Z96.653 Presence of artificial knee joint, bilateral; I25.2 Old myocardial infarction
CPT/HCPCS: 36415; 51702; 80053; 81001; 82803; 85025; 99285

== ENCOUNTER 2017-10-31 14:25 | Emergency (ER) | payer MEDICARE, MEDICAID ==
[2017-10-31 14:38] VITALS: BP 146/81
--- NOTE | 2017-10-31 15:50 | ER Document Report ---
ED Medical Screen (RME) - General Chief Complaint: Edema Stated Complaint: CATHETER PROBLEM Time Seen by Provider: 10/31/17 15:34 Mode of Arrival: Ambulatory Information source: Patient Notes: 57-year-old male presents with complaints of foul-smelling urine after a indwelling Loo catheter was placed on Tuesday. Patient denies any fevers or chills notes dark urine. Patient also notes bilateral lower extremity swelling I have greeted and performed a rapid initial assessment of this patient. A comprehensive ED assessment and evaluation of the patient, analysis of test results and completion of the medical decision making process will be conducted by additional ED providers. PHYSICAL EXAMINATION: GENERAL: Obese male HEAD: Atraumatic, normocephalic. EYES: Pupils equal round extraocular movements intact, conjunctiva are normal. ENT: Nares patent NECK: Normal range of motion LUNGS: No respiratory distress Musculoskeletal: Normal range of motion NEUROLOGICAL: Normal speech, normal gait. PSYCH: Normal mood, normal affect. SKIN: Nonpitting edema lower extremities bilateral TRAVEL OUTSIDE OF THE [place] IN LAST 30 DAYS: No - Related Data Allergies/Adverse Reactions: No Known Drug Allergies Allergy (Verified 10/31/17 14:26) Cheese Allergy (Uncoded 10/31/17 14:26) VINEGAR Allergy (Uncoded 10/31/17 14:26) Hives Past Medical History - Social History Chew tobacco use (# tins/day): No Frequency of alcohol use: None Drug Abuse: None - Past Medical History Cardiac Medical History: Reports: Hx Heart Attack - x3, Hx Hypercholesterolemia , Hx Hypertension Pulmonary Medical History: Reports: Hx Asthma, Hx Sleep Apnea Endocrine Medical History: Reports: Hx Diabetes Mellitus Type 2 Renal/ Medical History: Denies: Hx Peritoneal Dialysis Musculoskeltal Medical History: Reports Hx Arthritis, Reports Hx Musculoskeletal Deformity, Reports Hx Musculoskeletal Trauma Psychiatric Medical History: Reports: Hx Bipolar Disorder, Hx Depression, Hx Schizophrenia Traumatic Medical History: Reports: Hx Fractures Past Surgical History: Reports: Hx Cardiac Catheterization, Hx Cardiac Surgery - stent x1, Hx Orthopedic Surgery - Bilateral total knee, Hx Tonsillectomy - Immunizations Immunizations up to date: Yes Hx Diphtheria, Pertussis, Tetanus Vaccination: Yes - 2013 Physical Exam - Vital signs Vitals: Temp Pulse Resp BP Pulse Ox 98.1 F 97 14 146/81 H 97 10/31/17 14:35 10/31/17 14:35 10/31/17 14:35 10/31/17 14:35 10/31/17 14:35 Course - Vital Signs Vital signs: Temp Pulse Resp BP Pulse Ox 98.1 F 97 14 146/81 H 97 10/31/17 14:35 10/31/17 14:35 10/31/17 14:35 10/31/17 14:35 10/31/17 14:35 - Laboratory Result Diagrams: 10/31/17 15:36 10/31/17 15:36
[2017-10-31 15:53] LABS: ABSOLUTE BASOPHILS # (AUTO) 0.1 10^3/uL (0.0-0.2); ABSOLUTE EOSINOPHILS # (AUTO) 0.2 10^3/uL (0.0-0.6); ABSOLUTE LYMPHOCYTES (AUTO) 1.4 10^3/uL (0.5-4.7); ABSOLUTE MONOCYTES (AUTO) 0.4 10^3/uL (0.1-1.4); ABSOLUTE NEUT (AUTO) 5.9 10^3/uL (1.7-8.2); BASOPHILS % (AUTO) 0.8 % (0-2); HEMATOCRIT 43.8 % (37.9-51.0); HEMOGLOBIN 15.2 g/dL (13.5-17.0); LYMPHOCYTES % (AUTO) 17.8 % (13-45); MEAN CORPUSCULAR HGB CONC 34.8 g/dL (32.0-36.0); MEAN CORPUSCULAR VOLUME 86 fl (80-97); MONOCYTES % (AUTO) 4.8 % (3-13); PLATELET COUNT 216 10^3/uL (150-450); RED BLOOD COUNT 5.08 10^6/uL (4.35-5.55); RED CELL DISTRIBUTION WIDTH 13.6 % (11.5-14.0); SEGMENTED NEUTROPHILS % (AUTO) 74.6 % (42-78); TOTAL CELLS COUNTED % (AUTO) 100 %; WHITE BLOOD COUNT 7.9 10^3/uL (4.0-10.5)
[2017-10-31 16:00] LABS: APPEARANCE,URINE CLOUDY; BILIRUBIN,URINE NEGATIVE (NEGATIVE); COLOR,URINE YELLOW; GLUCOSE, URINE >=500 mg/dL (NEGATIVE); KETONES,URINE NEGATIVE (NEGATIVE); LEUKOCYTE ESTERASE,URINE SMALL (NEGATIVE); NITRITE,URINE NEGATIVE (NEGATIVE); PROTEIN,URINE 30 mg/dL (NEGATIVE); URINE SPECIFIC GRAVITY 1.026; UROBILINOGEN,URINE NEGATIVE mg/dL (<2.0)
[2017-10-31 16:08] LABS: ALANINE AMINOTRANSFERASE 69 U/L (21-72); ALBUMIN 3.8 g/dL (3.5-5.0); ALKALINE PHOSPHATASE 81 U/L (38-126); ANION GAP 13 (5-19); ASPARTATE AMINO TRANSFERASE 53 U/L (17-59); BILIRUBIN,DIRECT 0.3 mg/dL (0.0-0.4); BILIRUBIN,TOTAL 0.5 mg/dL (0.2-1.3); BLOOD UREA NITROGEN 9 mg/dL (7-20); CALCIUM 9.3 mg/dL (8.4-10.2); CARBON DIOXIDE 23 mmol/L (22-30); CHLORIDE 105 mmol/L (98-107); CREATINE KINASE 81 U/L (55-170); GLUCOSE 338 mg/dL (75-110); POTASSIUM 4.3 mmol/L (3.6-5.0); SODIUM 141.2 mmol/L (137-145); TOTAL PROTEIN 6.8 g/dL (6.3-8.2)
--- NOTE | 2017-10-31 16:16 | RADIOLOGY REPORT (SQ) ---
EXAM DESCRIPTION: CHEST SINGLE VIEW COMPLETED DATE/TIME: 10/31/2017 4:01 pm REASON FOR STUDY: short of breath COMPARISON: 04/29/2017. EXAM PARAMETERS: NUMBER OF VIEWS: One view. TECHNIQUE: Single frontal radiographic view of the chest acquired. RADIATION DOSE: NA LIMITATIONS: None. FINDINGS: LUNGS AND PLEURA: No opacities, masses or pneumothorax. No pleural effusion. MEDIASTINUM AND HILAR STRUCTURES: No masses. Contour normal. HEART AND VASCULAR STRUCTURES: Heart normal in size. Normal vasculature. BONES: No acute findings. HARDWARE: None in the chest. OTHER: No other significant finding. IMPRESSION: NO ACUTE RADIOGRAPHIC FINDING IN THE CHEST. TECHNICAL DOCUMENTATION: JOB ID: [id number] [employer]- All Rights Reserved Reading location - IP/workstation name: [email or web address]
--- NOTE | 2017-10-31 16:30 | EKG REPORT ---
SEVERITY:- BORDERLINE ECG - SINUS RHYTHM BORDERLINE T WAVE ABNORMALITIES : Confirmed by: Domo Pompa 31-Oct-2017 16:30:16
[2017-10-31] MEDS ORDERED: CIPROFLOXACIN HCL 500 MG TABLET PO ONE (17:35)
--- NOTE | 2017-10-31 17:41 | ER Document Report ---
ED General - General Chief Complaint: Edema Stated Complaint: CATHETER PROBLEM Time Seen by Provider: 10/31/17 15:34 Mode of Arrival: Ambulatory Information source: Patient Notes: Chief complaint: Painful catheter History of complain:( obtained from----patient) 57 years old male who was placed on a urinary catheter last Tuesday, presents today with foul-smelling around the urethra as well as when the catheter moved is very painful for him. No fever chills or other constitutional symptoms. Catheter was placed for benign prostatic hypertrophy with retention of urine. Onset: As above Duration: Last few days Severity: Mild to moderate Quality: Sharp Context: Catheter placement Exacerbating factor and relieving factors: Walking relieved by resting REVIEW OF SYSTEMS: CONSTITUTIONAL : Denies fever, chills, or sweats. Denies recent illness. EENT: Denies eye, ear, throat, or mouth pain or symptoms. Denies nasal or sinus congestion or discharge. Denies throat, tongue, or mouth swelling or difficulty swallowing. CARDIOVASCULAR: Denies chest pain. Denies palpitations or racing or irregular heart beat. Denies ankle edema. RESPIRATORY: Denies cough, cold, or chest congestion. Denies shortness of breath, difficulty breathing, or wheezing. GASTROINTESTINAL: Denies distention. Denies nausea, vomiting, or diarrhea. Denies blood in vomitus, stools, or per rectum. Denies black, tarry stools. Denies constipation. GENITOURINARY: Denies difficulty urinating, painful urination, burning, frequency, blood in urine, or discharge. FEMALE GENITOURINARY: Denies vaginal bleeding, heavy or abnormal periods, irregular periods. Denies vaginal discharge or odor. MUSCULOSKELETAL: Denies back or neck pain or stiffness. Denies joint pain or swelling. SKIN: Denies rash, lesions or sores. HEMATOLOGIC : Denies easy bruising or bleeding. LYMPHATIC: Denies swollen, enlarged glands. NEUROLOGICAL: Denies confusion or altered mental status. Denies passing out or loss of consciousness. Denies dizziness or lightheadedness. Denies headache. Denies weakness or paralysis or loss of use of either side. Denies problems with gait or speech. Denies sensory loss, numbness, or tingling. Denies seizures. PSYCHIATRIC: Denies anxiety or stress. Denies depression, suicidal ideation, or homicidal ideation. ALL OTHER SYSTEMS REVIEWED AND NEGATIVE. PHYSICAL EXAMINATION: GENERAL: Well-appearing, well-nourished and in no acute distress. Obese HEAD: Atraumatic, normocephalic. EYES: Pupils equal round and reactive to light, extraocular movements intact, conjunctiva are normal. ENT: Nares patent, oropharynx clear without exudates. Moist mucous membranes. NECK: Normal range of motion, supple without lymphadenopathy LUNGS: Breath sounds clear to auscultation bilaterally and equal. No wheezes rales or rhonchi. HEART: Regular rate and rhythm without murmurs ABDOMEN: Soft, nontender, nondistended abdomen. No guarding, no rebound. No masses appreciated. Examination of the genitals: catheter in place draining dark urine. No discharge around the meatus noted Examination of genitals-deferred Musculoskeletal: Normal range of motion, no pitting or edema. No cyanosis. NEUROLOGICAL: Cranial nerves grossly intact. Normal speech, normal gait. Normal sensory, motor exams PSYCH: Normal mood, normal affect. SKIN: Warm, Dry, normal turgor, no rashes or lesions noted. Dictation was performed using [employer] voice recognition software TRAVEL OUTSIDE OF THE [place] IN LAST 30 DAYS: No - HPI Notes: Dictated - Related Data Allergies/Adverse Reactions: No Known Drug Allergies Allergy (Verified 10/31/17 14:26) Cheese Allergy (Uncoded 10/31/17 14:26) VINEGAR Allergy (Uncoded 10/31/17 14:26) Hives Past Medical History - General Information source: Patient - Social History Smoking Status: Never Smoker Chew tobacco use (# tins/day): No Frequency of alcohol use: None Drug Abuse: None Family History: Arthritis, CAD, DM, Hyperlipidemia, Hypertension. denies: COPD , CVA, Malignancy, Thyroid Disfunction Patient has suicidal ideation: No Patient has homicidal ideation: No - Past Medical History Cardiac Medical History: Reports: Hx Heart Attack - x3, Hx Hypercholesterolemia , Hx Hypertension Pulmonary Medical History: Reports: Hx Asthma, Hx Sleep Apnea Endocrine Medical History: Reports: Hx Diabetes Mellitus Type 2 Renal/ Medical History: Denies: Hx Peritoneal Dialysis Musculoskeltal Medical History: Reports Hx Arthritis, Reports Hx Musculoskeletal Deformity, Reports Hx Musculoskeletal Trauma Psychiatric Medical History: Reports: Hx Bipolar Disorder, Hx Depression, Hx Schizophrenia Traumatic Medical History: Reports: Hx Fractures Past Surgical History: Reports: Hx Cardiac Catheterization, Hx Cardiac Surgery - stent x1, Hx Orthopedic Surgery - Bilateral total knee, Hx Tonsillectomy - Immunizations Immunizations up to date: Yes Hx Diphtheria, Pertussis, Tetanus Vaccination: Yes - 2013 Hx Pneumococcal Vaccination: 07/28/13 Review of Systems - Review of Systems Notes: Dictated Physical Exam - Vital signs Vitals: Temp Pulse Resp BP Pulse Ox 98.1 F 97 14 146/81 H 97 10/31/17 14:35 10/31/17 14:35 10/31/17 14:35 10/31/17 14:35 10/31/17 14:35 - Notes Notes: Dictated Course - Re-evaluation Re-evalutation: 10/31/17 17:39 Urinary catheter was changed, given antibiotic Cipro. Urine cultures - Vital Signs Vital signs: Temp Pulse Resp BP Pulse Ox 98.1 F 97 14 146/81 H 97 10/31/17 14:35 10/31/17 14:35 10/31/17 14:35 10/31/17 14:35 10/31/17 14:35 - Laboratory Result Diagrams: 10/31/17 15:36 10/31/17 15:36 Laboratory results interpreted by me: 10/31/17 10/31/17 15:36 15:36 Glucose 338 H Urine Protein 30 H Urine Glucose (UA) >=500 H Urine Blood LARGE H Ur Leukocyte Esterase SMALL H - Diagnostic Test Radiology reviewed: Reports reviewed - Chest x-ray reported by radiologist as normal Discharge - Discharge Clinical Impression: Urinary catheter dysfunction Qualifiers: Encounter type: initial encounter Qualified Code(s): T83.018A - Breakdown ( mechanical) of other urinary catheter, initial encounter Urinary tract infection Qualifiers: Urinary tract infection type: catheter-associated UTI Indwelling urinary catheter type: indwelling urethral catheter Encounter type: initial encounter Qualified Code(s): T83.511A - Infection and inflammatory reaction due to indwelling urethral catheter, initial encounter; N39.0 - Urinary tract infection , site not specified; N39.0 - Urinary tract infection, site not specified Condition: Fair Disposition: HOME, SELF-CARE Instructions: Urinary Tract Infection ([facility]) Prescriptions: Ciprofloxacin HCl [Cipro 500 mg Tablet] 500 mg PO BID #20 tablet Referrals: DONALD CAMARGO MD [Primary Care Provider] - Follow up as needed
== END 2017-10-31 18:00 | disposition home or self-care (01) ==
LOC: ER 14:25
DX: T83.018A Breakdown (mechanical) of other urinary catheter, initial encounter (principal); T83.511A Infection and inflammatory reaction due to indwelling urethral catheter, initial encounter; T83.84XA Pain due to genitourinary prosthetic devices, implants and grafts, initial encounter; R60.0 Localized edema; N40.0 Benign prostatic hyperplasia without lower urinary tract symptoms; I25.2 Old myocardial infarction; I10 Essential (primary) hypertension; J45.909 Unspecified asthma, uncomplicated; E11.9 Type 2 diabetes mellitus without complications; N39.0 Urinary tract infection, site not specified
CPT/HCPCS: 93005; 99285; 51702; 36415; 82550; 85025; 80053; 81001; 71045; 83880; 93010; A9270

== ENCOUNTER → 2017-11-23 | Outpatient (CLI) | payer MEDICARE, MEDICAID ==
--- NOTE | 2017-11-23 15:58 | RADIOLOGY REPORT (SQ) ---
EXAM DESCRIPTION: CHEST 2 VIEWS COMPLETED DATE/TIME: 11/23/2017 2:54 pm REASON FOR STUDY: COUGH COMPARISON: 10/31/2017 EXAM PARAMETERS: NUMBER OF VIEWS: two views TECHNIQUE: Digital Frontal and Lateral radiographic views of the chest acquired. RADIATION DOSE: NA LIMITATIONS: none FINDINGS: LUNGS AND PLEURA: No opacities, masses or pneumothorax. No pleural effusion. MEDIASTINUM AND HILAR STRUCTURES: No masses or contour abnormalities. HEART AND VASCULAR STRUCTURES: Heart normal size. No evidence for failure. BONES: No acute findings. HARDWARE: None in the chest. OTHER: No other significant finding. IMPRESSION: NO ACUTE RADIOGRAPHIC FINDING IN THE CHEST. TECHNICAL DOCUMENTATION: JOB ID: [id number] [employer]- All Rights Reserved Reading location - IP/workstation name: [email or web address]
== END ==
LOC: RAD 14:26
PROVIDERS: ATTEND Family Medicine
DX: R05 Cough (principal)
CPT/HCPCS: 71046

== ENCOUNTER 2018-03-09 13:38 | Observation (INO) | payer MEDICARE, MEDICAID ==
--- NOTE | 2018-03-09 14:05 | ER Document Report ---
ED Medical Screen (RME) - General Chief Complaint: Chest Pain Stated Complaint: CHEST PAIN Time Seen by Provider: 03/09/18 14:04 Notes: Chest pain with shortness of breath times 2 days. Pain has been mostly constant , the pain is worse when he takes a deep breath. Sent from Dr. Pompa's office for further evaluation. Received 2 nitroglycerin and aspirin in the office. PCP is Dr. Sosa. Patient states the nitroglycerin might have helped a little bit. I have greeted and performed a rapid initial assessment of this patient. A comprehensive ED assessment and evaluation of the patient, analysis of test results and completion of the medical decision making process will be conducted by additional ED providers. TRAVEL OUTSIDE OF THE [place] IN LAST 30 DAYS: No - Related Data Allergies/Adverse Reactions: No Known Drug Allergies Allergy (Verified 03/09/18 13:39) Cheese Allergy (Uncoded 10/31/17 14:26) VINEGAR Allergy (Uncoded 10/31/17 14:26) Hives Past Medical History - Past Medical History Cardiac Medical History: Reports: Hx Heart Attack - x3, Hx Hypercholesterolemia , Hx Hypertension Pulmonary Medical History: Reports: Hx Asthma, Hx Sleep Apnea Endocrine Medical History: Reports: Hx Diabetes Mellitus Type 2 Renal/ Medical History: Denies: Hx Peritoneal Dialysis Musculoskeltal Medical History: Reports Hx Arthritis, Reports Hx Musculoskeletal Deformity, Reports Hx Musculoskeletal Trauma Psychiatric Medical History: Reports: Hx Bipolar Disorder, Hx Depression, Hx Schizophrenia Traumatic Medical History: Reports: Hx Fractures Past Surgical History: Reports: Hx Cardiac Catheterization, Hx Cardiac Surgery - stent x1, Hx Orthopedic Surgery - Bilateral total knee, Hx Tonsillectomy - Immunizations Immunizations up to date: Yes Hx Diphtheria, Pertussis, Tetanus Vaccination: Yes - 2013 Physical Exam - Vital signs Vitals: Temp Pulse Resp BP Pulse Ox 98.5 F 119 H 14 137/81 H 94 03/09/18 13:43 03/09/18 13:43 03/09/18 13:43 03/09/18 13:43 03/09/18 13:43 Course - Vital Signs Vital signs: Temp Pulse Resp BP Pulse Ox 98.5 F 119 H 14 137/81 H 94 03/09/18 13:43 03/09/18 13:43 03/09/18 13:43 03/09/18 13:43 03/09/18 13:43 Doctor's Discharge - Discharge Referrals: JUDY LAU MD [Primary Care Provider] - Follow up as needed
[2018-03-09 14:40] LABS: ABSOLUTE BASOPHILS # (AUTO) 0.1 10^3/uL (0.0-0.2); ABSOLUTE LYMPHOCYTES (AUTO) 1.8 10^3/uL (0.5-4.7); ABSOLUTE MONOCYTES (AUTO) 0.4 10^3/uL (0.1-1.4); ABSOLUTE NEUT (AUTO) 5.8 10^3/uL (1.7-8.2); BASOPHILS % (AUTO) 1.1 % (0-2); EOSINOPHILS % (AUTO) 0.3 % (0-6); HEMATOCRIT 46.2 % (37.9-51.0); HEMOGLOBIN 15.8 g/dL (13.5-17.0); LYMPHOCYTES % (AUTO) 21.9 % (13-45); MEAN CORPUSCULAR HEMOGLOBIN 29.5 pg (27.0-33.4); MEAN CORPUSCULAR HGB CONC 34.2 g/dL (32.0-36.0); MEAN CORPUSCULAR VOLUME 86 fl (80-97); MONOCYTES % (AUTO) 5.2 % (3-13); PLATELET COUNT 231 10^3/uL (150-450); RED BLOOD COUNT 5.35 10^6/uL (4.35-5.55); RED CELL DISTRIBUTION WIDTH 13.5 % (11.5-14.0); SEGMENTED NEUTROPHILS % (AUTO) 71.5 % (42-78); TOTAL CELLS COUNTED % (AUTO) 100 %
[2018-03-09 14:45] LABS: APPEARANCE,URINE CLEAR; BILIRUBIN,URINE NEGATIVE (NEGATIVE); COLOR,URINE STRAW; GLUCOSE, URINE >=500 mg/dL (NEGATIVE); KETONES,URINE TRACE mg/dL (NEGATIVE); LEUKOCYTE ESTERASE,URINE TRACE (NEGATIVE); NITRITE,URINE NEGATIVE (NEGATIVE); PROTEIN,URINE NEGATIVE (NEGATIVE); URINE SPECIFIC GRAVITY 1.026; UROBILINOGEN,URINE NEGATIVE mg/dL (<2.0)
[2018-03-09 15:00] LABS: ALANINE AMINOTRANSFERASE 52 U/L (21-72); ALBUMIN 4.2 g/dL (3.5-5.0); ALKALINE PHOSPHATASE 110 U/L (38-126); ANION GAP 11 (5-19); ASPARTATE AMINO TRANSFERASE 61 U/L (17-59); BILIRUBIN,DIRECT 0.6 mg/dL (0.0-0.4); BILIRUBIN,TOTAL 0.8 mg/dL (0.2-1.3); BLOOD UREA NITROGEN 10 mg/dL (7-20); CALCIUM 9.5 mg/dL (8.4-10.2); CARBON DIOXIDE 25 mmol/L (22-30); CHLORIDE 101 mmol/L (98-107); CREATINE KINASE 83 U/L (55-170); POTASSIUM 4.6 mmol/L (3.6-5.0); SODIUM 136.8 mmol/L (137-145); TOTAL PROTEIN 7.8 g/dL (6.3-8.2)
[2018-03-09 15:08] LABS: GLUCOSE 459 mg/dL (75-110)
--- NOTE | 2018-03-09 15:08 | ER Document Report ---
ED Cardiac - General Chief Complaint: Chest Pain Stated Complaint: CHEST PAIN Time Seen by Provider: 03/09/18 14:04 Mode of Arrival: Ambulatory Information source: Patient Notes: This is a 57-year-old man with a history of coronary artery disease (1 stent in the past), hypertension, insulin requiring diabetes, dyslipidemia who presents to the emergency room with pain radiating across the chest on and off for the past 2-1/2 days. Patient does state he took 3 nitroglycerin and 2 aspirins with minimal improvement and it called the doctor's officers and was referred here. She denies shortness of breath, nausea, diaphoresis. TRAVEL OUTSIDE OF THE [place] IN LAST 30 DAYS: No - HPI Patient complains to provider of: Chest pain Use of: denies: Alcohol, Amphetamines, Bath salts, Caffeine, Cocaine, Decongestants, Other Was the onset of pain: Gradual Is the pain a: New problem Quality of pain: Intermittent Chest pain radiation location: None Severity now: Mild Severity at worst: Moderate Pain level currently: 1 Chest pain precipitating factors: At Rest Cardiac risk factors: Diabetes, Hypertension, Dyslipidemia, Hx IN Positive cardiac history: Yes Associated symptoms: denies: Abdominal pain, Fever/chills Exacerbated by: Denies Relieved by: Nothing Similar symptoms previously: Yes Recently seen / treated by doctor: No - Related Data Allergies/Adverse Reactions: No Known Drug Allergies Allergy (Verified 03/09/18 13:39) Cheese Allergy (Uncoded 10/31/17 14:26) VINEGAR Allergy (Uncoded 10/31/17 14:26) Hives Past Medical History - General Information source: Patient - Social History Smoking Status: Never Smoker Cigarette use (# per day): No Chew tobacco use (# tins/day): No Frequency of alcohol use: None Drug Abuse: None Lives with: Family Family History: Arthritis, CAD, DM, Hyperlipidemia, Hypertension. denies: COPD , CVA, Malignancy, Thyroid Disfunction Patient has suicidal ideation: No Patient has homicidal ideation: No - Past Medical History Cardiac Medical History: Reports: Hx Heart Attack - x3, Hx Hypercholesterolemia , Hx Hypertension Pulmonary Medical History: Reports: Hx Asthma, Hx Sleep Apnea Endocrine Medical History: Reports: Hx Diabetes Mellitus Type 2 Renal/ Medical History: Denies: Hx Peritoneal Dialysis Musculoskeletal Medical History: Reports Hx Arthritis, Reports Hx Musculoskeletal Deformity, Reports Hx Musculoskeletal Trauma Psychiatric Medical History: Reports: Hx Bipolar Disorder, Hx Depression, Hx Schizophrenia Traumatic Medical History: Reports: Hx Fractures Past Surgical History: Reports: Hx Cardiac Catheterization, Hx Cardiac Surgery - stent x1, Hx Orthopedic Surgery - Bilateral total knee, Hx Tonsillectomy - Immunizations Immunizations up to date: Yes Hx Diphtheria, Pertussis, Tetanus Vaccination: Yes - 2013 Hx Pneumococcal Vaccination: 07/28/13 Review of Systems - Review of Systems Constitutional: denies: Chills, Fever EENT: No symptoms reported Cardiovascular: See HPI Respiratory: No symptoms reported Gastrointestinal: No symptoms reported Genitourinary: No symptoms reported Male Genitourinary: No symptoms reported Musculoskeletal: No symptoms reported Skin: No symptoms reported Hematologic/Lymphatic: No symptoms reported Neurological/Psychological: No symptoms reported Physical Exam - Vital signs Vitals: Temp Pulse Resp BP Pulse Ox 98.5 F 119 H 14 137/81 H 94 03/09/18 13:43 03/09/18 13:43 03/09/18 13:43 03/09/18 13:43 03/09/18 13:43 Notes: Physical exam: GENERAL: Patient is alert and oriented x3, no acute distress. His blood pressure is 143/92, pulse 87, O2 sat 97% on room air and his respiratory rate is 18. HEAD: Atraumatic, normocephalic. EYES: Pupils equal round and reactive to light, extraocular movements intact, sclera anicteric, conjunctiva are normal. ENT: TMs normal, nares patent, oropharynx clear without exudates. Moist mucous membranes. NECK: Normal range of motion, supple without obvious mass or JVD. LUNGS: Breath sounds clear to auscultation bilaterally and equal. No wheezes rales or rhonchi. HEART: Regular rate and rhythm without murmurs, rubs or gallops. ABDOMEN: Soft, normoactive bowel sounds. No tenderness to palpation. No guarding, no rebound. No masses appreciated. EXTREMITIES: Normal range of motion, no pitting or edema. No clubbing or cyanosis. NEUROLOGICAL: Cranial nerves II through XII grossly intact. Normal speech, moving all extremities. PSYCH: Normal mood, normal affect. SKIN: Warm, Dry, normal turgor, no rashes or lesions noted. Course - Re-evaluation Re-evalutation: 03/09/18 17:06 Patient is chest pain-free. His first set of enzymes are negative. Plan will be to bring in for observation and repeat cardiac enzymes with cardiology consultation. Discussed case with Dr. Sosa who will be admitting patient. - Vital Signs Vital signs: Temp Pulse Resp BP Pulse Ox 97.9 F 70 16 125/58 L 94 03/09/18 21:51 03/09/18 21:51 03/09/18 21:51 03/09/18 21:51 03/09/18 21:51 - Laboratory Result Diagrams: 03/09/18 14:25 03/09/18 14:25 Laboratory results interpreted by me: 03/09/18 03/09/18 03/09/18 14:25 14:25 16:50 Sodium 136.8 L Glucose 459 H* POC Glucose 355 H Direct Bilirubin 0.6 H AST 61 H Urine Glucose (UA) >=500 H Urine Ketones TRACE H Ur Leukocyte Esterase TRACE H - EKG Interpretation by Me Rate: Tachycardia - EKG shows sinus tachycardia with a ventricular rate of 108, nonspecific ST changes. Discharge - Discharge Clinical Impression: Chest pain Condition: Stable Disposition: ADMITTED OBSERVATION Admitting Provider: Ian Unit Admitted: Telemetry
[2018-03-09] MEDS ORDERED: ACETAMINOPHEN 325 MG TABLET PO ONE (15:09)
[2018-03-09] MEDS ORDERED: NITROGLYCERIN 2% OINTMENT 1 GM PACKET TP ONE (15:09)
[2018-03-09] MEDS ORDERED: MORPHINE SULFATE 10 MG/ML INJ IV ONE ×2 (15:10→16:40)
[2018-03-09] MEDS ORDERED: ONDANSETRON HCL INJ/PF 4 MG/2 ML SDV IV ONE (15:10)
[2018-03-09] MEDS ORDERED: INSULIN REG, HUMAN 100 UNIT/ML 3 ML VIAL (PYX) SUBCUT ONE (15:11)
[2018-03-09 15:24] LABS: CREATINE KINASE MB 0.69 ng/mL (<4.55)
[2018-03-09 15:25] LABS: TROPONIN I < 0.012 ng/mL
[2018-03-09] MEDS ORDERED: ACETAMINOPHEN 325 MG TABLET PO PRN (17:20)
[2018-03-09] MEDS ORDERED: ONDANSETRON HCL INJ/PF 4 MG/2 ML SDV IV PRN (17:20)
[2018-03-09] MEDS ORDERED: DEXTROSE 40% GEL 15 GM TUBE PO PRN ×2 (17:24)
[2018-03-09] MEDS ORDERED: DEXTROSE 50%-WATER 25 GM/50 ML DISP.SYRIN IV PRN ×2 (17:24)
[2018-03-09] MEDS ORDERED: GLUCAGON,HUMAN RECOMB 1 MG INJ IM PRN (17:24)
--- NOTE | 2018-03-09 17:36 | PDOC H&P ---
History of Present Illness Admission Date/PCP: 03/09/18 17:12 DONALD CAMARGO MD Patient complains of: Chest pain History of Present Illness: YURY BAZAN is a 57 year old male This is a 57-year-old male with a history of the coronary artery disease status post stent placement at [facility] several years back with a history of the type 2 diabetes mellitus history of a sleep apnea history of the hypertensions hyperlipidemia and noncompliance in the multiple psych issues went to the cardiology office Dr. Pompa and the patient was complaining of chest pain and the patient had a EKG was done which is unchanged but patient sent to the emergency department for further evaluations In the emergency department patient initial EKG and first set of cardiac enzyme is all negative Patient all the other workup was all stable except patient's blood sugar was 400 range Patient also received a nitroglycerin and morphine when I saw the patient's patient's denied any chest pain denied any shortness of the breath Patients have a stress test was done in January and according to Dr. Pompa was all stable Patient's otherwise denied any other symptoms Patient and his in the room no other concerns decided to admit the patient in the hospital for further evaluations Past Medical History Cardiac Medical History: Reports: Myocardial Infarction - x3, Hyperlipidema, Hypertension Pulmonary Medical History: Reports: Asthma, Chronic Obstructive Pulmonary Disease (COPD), Sleep Apnea Endocrine Medical History: Reports: Diabetes Mellitus Type 2 GI Medical History: Reports: Gastroesophageal Reflux Disease Musculoskeltal Medical History: Reports: Arthritis Psychiatric Medical History: Reports: Bipolar Disorder, Depression, General Anxiety Disorder Hematology: Denies: Anemia, Bleeding Tendencies Past Surgical History Past Surgical History: Reports: Cardiac Catheterization, Orthopedic Surgery - Bilateral total knee, Tonsillectomy Social History Smoking Status: Never Smoker Frequency of Alcohol Use: None Hx Recreational Drug Use: No Hx Prescription Drug Abuse: No Family History Family History: Arthritis, CAD, DM, Hyperlipidemia, Hypertension. denies: COPD , CVA, Malignancy, Thyroid Disfunction Parental Family History Reviewed: Yes Children Family History Reviewed: Yes Sibling(s) Family History Reviewed.: Yes Medication/Allergy Home Medications: Aripiprazole [Aripiprazole] 15 mg PO BID 03/09/18 Atorvastatin Calcium 20 mg PO DAILY 03/09/18 Benztropine Mesylate 1 mg PO BID 03/09/18 Diazepam [Diazepam] 5 mg PO DAILY 03/09/18 Famotidine [Famotidine] 20 mg PO BID 03/09/18 Glipizide [Glipizide] 10 mg PO DAILY 03/09/18 Insulin Aspart [Novolog Flexpen] 35 units INJ TID 03/09/18 Insulin Detemir [Levemir Flextouch] 55 units INJ DAILY 03/09/18 Isosorbide Dinitrate [Isosorbide Dinitrate ER] 30 mg PO DAILY 03/09/18 Metoprolol Tartrate 25 mg PO BID 03/09/18 Paroxetine HCl 40 mg PO DAILY 03/09/18 Tamsulosin HCl 0.4 mg PO DAILY 03/09/18 Trazodone HCl 100 mg PO BID 03/09/18 Allergies/Adverse Reactions: No Known Drug Allergies Allergy (Verified 03/09/18 13:39) Cheese Allergy (Uncoded 10/31/17 14:26) VINEGAR Allergy (Uncoded 10/31/17 14:26) Hives Review of Systems Constitutional: ABSENT: chills, fever(s), headache(s), weight gain, weight loss Eyes: ABSENT: visual disturbances Ears: ABSENT: hearing changes Cardiovascular: PRESENT: chest pain. ABSENT: dyspnea on exertion, edema, orthropnea, palpitations Respiratory: ABSENT: cough, hemoptysis Gastrointestinal: ABSENT: abdominal pain, constipation, diarrhea, hematemesis, hematochezia, nausea, vomiting Genitourinary: ABSENT: dysuria, hematuria Musculoskeletal: ABSENT: joint swelling Integumentary: ABSENT: rash, wounds Neurological: ABSENT: abnormal gait, abnormal speech, confusion, dizziness, focal weakness, syncope Psychiatric: ABSENT: anxiety, depression, homidical ideation, suicidal ideation Endocrine: ABSENT: cold intolerance, heat intolerance, menstrual abnormalities, polydipsia, polyuria Hematologic/Lymphatic: ABSENT: easy bleeding, easy bruising, lymphadenopathy Physical Exam Vital Signs: Temp Pulse Resp BP Pulse Ox 98.5 F 119 H 14 137/81 H 94 03/09/18 13:43 03/09/18 13:43 03/09/18 13:43 03/09/18 13:43 03/09/18 13:43 General appearance: PRESENT: no acute distress, obese, well-developed, well- nourished Head exam: PRESENT: atraumatic, normocephalic Eye exam: PRESENT: conjunctiva pink, EOMI, PERRLA. ABSENT: scleral icterus Ear exam: PRESENT: normal external ear exam Mouth exam: PRESENT: moist, tongue midline Neck exam: PRESENT: full ROM. ABSENT: carotid bruit, JVD, lymphadenopathy, thyromegaly Respiratory exam: PRESENT: clear to auscultation tricia Cardiovascular exam: PRESENT: RRR. ABSENT: diastolic murmur, rubs, systolic murmur Pulses: PRESENT: normal dorsalis pedis pul, +2 pedal pulses bilateral Vascular exam: PRESENT: normal capillary refill GI/Abdominal exam: PRESENT: normal bowel sounds, soft. ABSENT: distended, guarding, mass, organolmegaly, rebound, tenderness Rectal exam: PRESENT: deferred Extremities exam: ABSENT: pedal edema Musculoskeletal exam: PRESENT: ambulatory Neurological exam: PRESENT: alert, awake, oriented to person, oriented to place , oriented to time, oriented to situation, CN II-XII grossly intact. ABSENT: motor sensory deficit Psychiatric exam: PRESENT: appropriate affect, normal mood. ABSENT: homicidal ideation, suicidal ideation Skin exam: PRESENT: dry, intact, warm. ABSENT: cyanosis, rash Assessment & Plan - Diagnosis (1) Chest pain Qualifiers: Chest pain type: unspecified Qualified Code(s): R07.9 - Chest pain, unspecified Is this a current diagnosis for this admission?: Yes Plan: With a significant history of the comorbidity with the coronary artery disease will admit the patient is to rule out acute coronary syndrome Also get the CT scan of the chest to rule out any other etiology (2) Coronary artery disease Qualifiers: Coronary Disease-Associated Artery/Lesion type: unspecified vessel or lesion type Associated angina: without angina Is this a current diagnosis for this admission?: Yes Plan: Consult the cardiology rule out acute coronary syndromes (3) Type 2 diabetes mellitus Qualifiers: Diabetes mellitus rat exterminator insulin use: with rat exterminator use Diabetes mellitus complication status: with unspecified complications Qualified Code(s) : E11.8 - Type 2 diabetes mellitus with unspecified complications; Z79.4 - moth exterminator (current) use of insulin; Z79.4 - nursing home (current) use of insulin; Z79.4 - nursing home (current) use of insulin; Z79.4 - nursing home (current) use of insulin Is this a current diagnosis for this admission?: Yes Plan: His insulin sliding scale (4) Hypertension Qualifiers: Hypertension type: essential hypertension Qualified Code(s): I10 - Essential (primary) hypertension Is this a current diagnosis for this admission?: Yes Plan: Continues to current medication (5) Sleep apnea Qualifiers: Sleep apnea type: unspecified type Qualified Code(s): G47.30 - Sleep apnea , unspecified Is this a current diagnosis for this admission?: Yes Plan: Continues to CPAP (6) Bipolar disorder Qualifiers: Active/Remission status: currently active Is this a current diagnosis for this admission?: Yes Plan: he is currently seeing outpatient psych continues to current medications (7) Hyperlipidemia Qualifiers: Hyperlipidemia type: unspecified Qualified Code(s): E78.5 - Hyperlipidemia , unspecified Is this a current diagnosis for this admission?: Yes (8) Noncompliance Is this a current diagnosis for this admission?: Yes (9) Benign prostatic hyperplasia Qualifiers: Lower urinary tract symptom presence: symptoms absent Qualified Code(s): N40.0 - Benign prostatic hyperplasia without lower urinary tract symptoms Is this a current diagnosis for this admission?: Yes Plan: Continue to the Flomax (10) Gastroesophageal reflux disease Qualifiers: Esophagitis presence: without esophagitis Qualified Code(s): K21.9 - Gastro -esophageal reflux disease without esophagitis Is this a current diagnosis for this admission?: Yes Plan: Continues the Pepcid - Time Time Spent: 30 to 50 Minutes Medications reviewed and adjusted accordingly: Yes Anticipated discharge: Home Within: Other - Inpatient Certification Based on my medical assessment, after consideration of the patient's comorbidities, presenting symptoms, or acuity I expect that the services needed warrant INPATIENT care.: Yes I certify that my determination is in accordance with my understanding of Medicare's requirements for reasonable and necessary INPATIENT services [42 CFR 412.3e].: Yes Medical Necessity: Need Close Monitoring Due to Risk of Patient Decompensation Post Hospital Care: D/C Air Conditioning Unit Assembler Documentation - Plan Summary Plan Summary: Admit the patient in the IMCU Consult to cardiology Ordered a CT scan Discussed with the patient and the in the emergency department Discussed with the forepart rounder
[2018-03-09] MEDS ORDERED: ARIPIPRAZOLE 15 MG PO SCH (18:00)
[2018-03-09] MEDS ORDERED: (PENDING PHARMACY ID) (Insulin Aspart [Novolog Flexpen] 20 UNITS) INJ SCH (18:00)
[2018-03-09] MEDS: BENZTROPINE MESYLATE 1 MG TABLET PO SCH (19:28)
[2018-03-09] MEDS: METOPROLOL TARTRATE 25 MG TABLET PO SCH (19:28)
[2018-03-09 19:55] LABS: CREATINE KINASE MB 0.63 ng/mL (<4.55)
[2018-03-09 20:01] LABS: TROPONIN I < 0.012 ng/mL
--- NOTE | 2018-03-09 20:19 | EKG REPORT ---
SEVERITY:- BORDERLINE ECG - SINUS TACHYCARDIA BORDERLINE T WAVE ABNORMALITIES : Confirmed by: Domo Pompa 09-Mar-2018 20:17:52
--- NOTE | 2018-03-09 20:52 | RADIOLOGY REPORT (SQ) ---
EXAM DESCRIPTION: CTA CHEST COMPLETED DATE/TIME: 03/09/2018 8:39 pm REASON FOR STUDY: chest pain E03.9 HYPOTHYROIDISM, UNSPECIFIED R07.89 OTHER CHEST PAIN COMPARISON: None. TECHNIQUE: CT scan of the chest performed using helical scanning technique with dynamic intravenous contrast injection. Images reviewed with lung, soft tissue and bone windows. Reconstructed coronal and sagittal MPR images reviewed. Additional 3 dimensional post-processing performed to develop Maximal Intensity Projection images (MT P). All images stored on PACS. All CT scanners at this facility use dose modulation, iterative reconstruction, and/or weight based d osing when appropriate to reduce radiation dose to as low as reasonably achievable (ALARA). [facility]: Dose Right [facility]: CareDose [facility]: Dose Right [facility]: Teradose 4D [facility]: Lemko CONTRAST TYPE AND DOSE: contrast/concentration: Isovue 350.00 mg/ml; Total Contrast Delivered: 161.0 ml; Total Saline Delivered: 124.0 ml Contrast bolus adequate for pulmonary arteries and aorta. RENAL FUNCTION: BUN 10 creatinine 0.8 RADIATION DOSE: CT Rad equipment meets quality standard of care and radiation dose reduction techniq ues were employed. CTDIvol: 37.0 - 49.6 mGy. DLP: 3061 mGy-cm. . LIMITATIONS: None. FINDINGS: LUNGS AND PLEURA: No masses, infiltrates, or pneumothorax. No pleural effusions or pleura l calcifications. AORTA AND GREAT VESSELS: No aneurysm. Contrast bolus not optimized for the aorta. HEART: No pericardial effusion. Moderate to marked coronary artery calcifications. PULMONARY ARTERIES: No emboli visualized in the main pulmonary arteries or the segmental branches. HILAR AND MEDIASTINAL STRUCTURES: No identified masses or abnormal nodes. HARDWARE: None in the chest. UPPER ABDOMEN: A single gallstone is suggested. THYROID AND OTHER SOFT TISSUES: No masses. No adenopathy. BONES: No acute or significant finding. 3D MIPS: Confirm above findings. OTHER: No other significant finding. IMPRESSION: 1. There is no evidence of pulmonary emboli. 2. A single gallstone is seen. COMMENT: Quality ID # [id number]: Final reports with documentation of one or more dose reduction techniques (e.g., Automated exposure control, adjustment of the mA and/or kV according to patient size, use of iterative reconstruction technique) TECHNICAL DOCUMENTATION: JOB ID: [id number]- All Rights Reserved Reading location - IP/workstation name: [email or web address]
[2018-03-09] MEDS: IPRATROPIUM/ALBUTEROL 0.5-2.5 MG/3 ML AMPUL NEB SCH (21:04)
[2018-03-09] MEDS: RANOLAZINE 500 MG TAB.SR.12H PO SCH (21:46)
[2018-03-09] MEDS: ARIPIPRAZOLE 5 MG TABLET PO SCH (21:48)
[2018-03-09] MEDS: PANTOPRAZOLE SODIUM 40 MG VIAL IV SCH (21:51)
[2018-03-09] MEDS: INSULIN LISPRO 100 UNIT/ML 3 ML VIAL SUBCUT PRN (21:56)
[2018-03-09] MEDS ORDERED: FAMOTIDINE 20 MG TABLET PO SCH (22:00)
[2018-03-09] MEDS ORDERED: ATORVASTATIN CALCIUM 40 MG TABLET PO SCH (22:00)
[2018-03-10 01:55] LABS: CREATINE KINASE MB 0.63 ng/mL (<4.55)
[2018-03-10] MEDS: IPRATROPIUM/ALBUTEROL 0.5-2.5 MG/3 ML AMPUL NEB SCH ×3 (01:55→13:18)
[2018-03-10 01:58] LABS: TROPONIN I < 0.012 ng/mL
[2018-03-10 07:38] LABS: ABSOLUTE BASOPHILS # (AUTO) 0.1 10^3/uL (0.0-0.2); ABSOLUTE EOSINOPHILS # (AUTO) 0.1 10^3/uL (0.0-0.6); ABSOLUTE MONOCYTES (AUTO) 0.6 10^3/uL (0.1-1.4); ABSOLUTE NEUT (AUTO) 5.3 10^3/uL (1.7-8.2); BASOPHILS % (AUTO) 1.2 % (0-2); EOSINOPHILS % (AUTO) 1.6 % (0-6); HEMATOCRIT 42.3 % (37.9-51.0); HEMOGLOBIN 14.6 g/dL (13.5-17.0); LYMPHOCYTES % (AUTO) 24.8 % (13-45); MEAN CORPUSCULAR HEMOGLOBIN 29.9 pg (27.0-33.4); MEAN CORPUSCULAR HGB CONC 34.4 g/dL (32.0-36.0); MEAN CORPUSCULAR VOLUME 87 fl (80-97); MONOCYTES % (AUTO) 7.6 % (3-13); PLATELET COUNT 206 10^3/uL (150-450); RED BLOOD COUNT 4.88 10^6/uL (4.35-5.55); RED CELL DISTRIBUTION WIDTH 13.4 % (11.5-14.0); SEGMENTED NEUTROPHILS % (AUTO) 64.8 % (42-78); TOTAL CELLS COUNTED % (AUTO) 100 %; WHITE BLOOD COUNT 8.1 10^3/uL (4.0-10.5)
[2018-03-10] MEDS: INSULIN LISPRO 100 UNIT/ML 3 ML VIAL SUBCUT PRN ×3 (07:48→17:19)
[2018-03-10 07:55] LABS: ALANINE AMINOTRANSFERASE 71 U/L (21-72); ALBUMIN 3.8 g/dL (3.5-5.0); ALKALINE PHOSPHATASE 84 U/L (38-126); ANION GAP 15 (5-19); ASPARTATE AMINO TRANSFERASE 50 U/L (17-59); BILIRUBIN,DIRECT 0.3 mg/dL (0.0-0.4); BILIRUBIN,TOTAL 0.8 mg/dL (0.2-1.3); BLOOD UREA NITROGEN 10 mg/dL (7-20); CALCIUM 9.3 mg/dL (8.4-10.2); CARBON DIOXIDE 24 mmol/L (22-30); CHLORIDE 98 mmol/L (98-107); CREATINE KINASE 75 U/L (55-170); GLUCOSE 315 mg/dL (75-110); POTASSIUM 4.4 mmol/L (3.6-5.0); SODIUM 136.7 mmol/L (137-145); TOTAL PROTEIN 6.5 g/dL (6.3-8.2)
[2018-03-10] MEDS ORDERED: INSULIN LISPRO 100 UNIT/ML 3 ML VIAL SUBCUT SCH (08:00)
[2018-03-10 08:17] LABS: CREATINE KINASE MB 0.85 ng/mL (<4.55)
[2018-03-10 08:21] LABS: TROPONIN I < 0.012 ng/mL
--- NOTE | 2018-03-10 09:55 | PDOC PROGRESS REPORT ---
Subjective Progress Note for:: 03/10/18 Subjective:: Patient was seen in the office by my physician budget assistant under my supervision. Subsequently sent to the ER because of continuing chest pain which did not respond to nitroglycerin in the office. So far evaluation by blood test and EKGs has been negative for cardiac ischemic discomfort. Patient being scheduled for a gallbladder ultrasound. Patient seems to be doing better with gradual improvement. Pt is denying any chest arm or neck discomfort except for minimal discomfort in the epigastric area. So far cardiac enzymes and EKGs has been unremarkable. Patient does give questionable history of stent placement but does not have any card. Patient denying any PND, orthopnea. Patient denied any sustained palpitations, dizziness, syncope, near syncope. Patient denying any fever chills. Patient denying any other significant discomfort. Patient is maintaining sinus rhythm. Review of systems: Rest review of systems negative. Medications: Medications have been reviewed. Reason For Visit: CHEST PAIN Physical Exam Vital Signs: Temp Pulse Resp BP Pulse Ox 98.2 F 75 16 131/81 H 94 03/10/18 07:26 03/10/18 07:58 03/10/18 07:58 03/10/18 07:26 03/10/18 07:58 Intake & Output 03/09/18 03/10/18 03/11/18 06:59 06:59 06:59 Weight 144.3 kg Exam: GENERAL: well-nourished and in no acute distress. Alert and oriented x3 HEAD: Atraumatic, normocephalic. EYES: Pupils equal round and reactive to light, extraocular movements intact, sclera anicteric, conjunctiva are normal. ENT: TMs normal, nares patent, oropharynx clear without exudates. Moist mucous membranes. No oral ulcerations or bleeding gums noted NECK: supple without lymphadenopathy. Trachea is central. No cervical or axillary lymphadenopathy noted. Carotids are 2+, JVD WNL LUNGS: Respiration seems nonlabored, no significant accessory muscle action noted. Breath sounds clear to auscultation bilaterally and equal noted. No wheezes rales or rhonchi noted. No significant dullness noted on percussion. CHEST: Palpation of the chest wall shows no significant chest wall tenderness. 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 ABDOMEN: Soft, no significant tenderness appreciated, normoactive bowel sounds. No guarding, no rebound. No rigidity noted . No masses appreciated. EXTREMITIES: Pedal pulses are 1-2+, no calf tenderness noted. No clubbing or cyanosis. negative pedal edema noted NEUROLOGICAL: Focused neurological exam showed no significant neurologic deficit. Normal speech, no focal weakness appreciated. PSYCH: Normal mood, normal affect. Judgment and insight within normal limits. SKIN: No significant ecchymosis, skin is noted to be warm. MUSCULOSKELETAL EXAM: No significant acute joint swelling noted. Results Laboratory Results: 03/10/18 07:10 03/10/18 07:10 03/09/18 03/10/18 03/10/18 19:13 07:10 07:10 WBC 8.1 RBC 4.88 Hgb 14.6 Hct 42.3 MCV 87 MCH 29.9 MCHC 34.4 RDW 13.4 Plt Count 206 Seg Neutrophils % 64.8 Lymphocytes % 24.8 Monocytes % 7.6 Eosinophils % 1.6 Basophils % 1.2 Absolute Neutrophils 5.3 Absolute Lymphocytes 2.0 Absolute Monocytes 0.6 Absolute Eosinophils 0.1 Absolute Basophils 0.1 Sodium 136.7 L Potassium 4.4 Chloride 98 Carbon Dioxide 24 Anion Gap 15 BUN 10 Creatinine 0.82 Est GFR ( Amer) > 60 Est GFR (Non-Af Amer) > 60 Glucose 315 H Calcium 9.3 Magnesium 1.9 Total Bilirubin 0.8 AST 50 ALT 71 Alkaline Phosphatase 84 Total Protein 6.5 Albumin 3.8 TSH 2.39 03/09/18 03/09/18 03/10/18 19:13 19:13 01:12 Creatine Kinase 72 55 CK-MB (CK-2) 0.63 Troponin I < 0.012 03/10/18 03/10/18 03/10/18 01:12 07:10 07:10 Creatine Kinase 75 CK-MB (CK-2) 0.63 0.85 Troponin I < 0.012 < 0.012 EKG Comments: Multiple EKGs reviewed and is negative for any ischemic changes. Impressions: Chest/Abdomen CTA 03/09/18 00:00 IMPRESSION: 1. There is no evidence of pulmonary emboli. 2. A single gallstone is seen. Assessment & Plan - Diagnosis (1) Chest pain Qualifiers: Chest pain type: unspecified Qualified Code(s): R07.9 - Chest pain, unspecified Is this a current diagnosis for this admission?: Yes (2) Coronary artery disease Qualifiers: Coronary Disease-Associated Artery/Lesion type: unspecified vessel or lesion type Associated angina: without angina Is this a current diagnosis for this admission?: Yes (3) Gastroesophageal reflux disease Qualifiers: Esophagitis presence: without esophagitis Qualified Code(s): K21.9 - Gastro -esophageal reflux disease without esophagitis Is this a current diagnosis for this admission?: Yes (4) Hyperlipidemia Qualifiers: Hyperlipidemia type: unspecified Qualified Code(s): E78.5 - Hyperlipidemia , unspecified Is this a current diagnosis for this admission?: Yes (5) Hypertension Qualifiers: Hypertension type: essential hypertension Qualified Code(s): I10 - Essential (primary) hypertension Is this a current diagnosis for this admission?: Yes (6) Sleep apnea Qualifiers: Sleep apnea type: unspecified type Qualified Code(s): G47.30 - Sleep apnea , unspecified Is this a current diagnosis for this admission?: Yes (7) Type 2 diabetes mellitus Qualifiers: Diabetes mellitus prison insulin use: with prison use Diabetes mellitus complication status: with unspecified complications Qualified Code(s) : E11.8 - Type 2 diabetes mellitus with unspecified complications; Z79.4 - halfway (current) use of insulin; Z79.4 - termite control representative (current) use of insulin; Z79.4 - termite control representative (current) use of insulin; Z79.4 - halfway (current) use of insulin Is this a current diagnosis for this admission?: Yes - Notes Notes: Chest pain: So far cardiac enzymes and EKGs negative. Recent nuclear stress test showed no ischemia just some fixed defect. Due to history of known CAD, if no other cause of chest pain is noted, cardiac catheterization may need to be considered. However feel that this can be arranged as an outpatient. Patient prefers to have this done at [facility] where he had previous procedures performed. CAD: Currently has atypical chest pain. Medical management has been optimized. Please see orders. Gastroesophageal reflux: Currently stable. Continue with proton pump inhibitor at double dose while in the hospital. Hyperlipidemia: Lipitor dose was increased to 80 mg. Continue with this dose. Hypertension: Blood pressure goal in this patient with CAD and diabetes is 135/ 85 or less. Currently under reasonable control. Sleep apnea: Patient did bring his CPAP machine therefore is felt to be compliant with CPAP therapy. Diabetes: This is being well managed by the cavalry officer but I am told patient is noncompliant and is running high blood sugar. Since patient is obese, may consider SGLT-2 inhibitors agent. - Time Time with patient: Greater than 35 minutes - More than 50% of the time spent coordinating care, discussing management plans with involved caregivers. Management plans discussed with involved personnels. Medical decision making was of moderate to high complexity, patient's has multiple comorbidities. Medications reviewed and adjusted accordingly: Yes
[2018-03-10] MEDS ORDERED: ATORVASTATIN CALCIUM 20 MG TABLET PO SCH (10:00)
[2018-03-10] MEDS ORDERED: INSULIN DETEMIR 100 UNIT/ML 3 ML PEN SUBCUT SCH (10:00)
[2018-03-10] MEDS ORDERED: ENOXAPARIN SODIUM INJ 40 MG/0.4 ML DISP.SYRIN SUBCUT SCH (10:00)
[2018-03-10] MEDS ORDERED: ISOSORBIDE DINITRATE 30 MG PO SCH (10:00)
[2018-03-10] MEDS ORDERED: ISOSORBIDE MONONITRATE 30 MG TAB.ER.24H PO SCH (10:00)
[2018-03-10] MEDS ORDERED: DIAZEPAM 5 MG TABLET PO SCH (10:00)
[2018-03-10] MEDS ORDERED: PAROXETINE HCL 20 MG TABLET PO SCH (10:00)
[2018-03-10] MEDS ORDERED: PAROXETINE HCL 40 MG PO SCH (10:00)
[2018-03-10] MEDS ORDERED: TAMSULOSIN HCL 0.4 MG CAP.SR.24H PO SCH (10:00)
[2018-03-10] MEDS ORDERED: TRAZODONE HCL 50 MG TABLET PO SCH (10:00)
--- NOTE | 2018-03-10 10:11 | EKG REPORT ---
SEVERITY:- BORDERLINE ECG - SINUS RHYTHM BORDERLINE T ABNORMALITIES, INFERIOR LEADS : Confirmed by: Domo Pompa 10-Mar-2018 10:11:00
--- NOTE | 2018-03-10 10:11 | EKG REPORT ---
SEVERITY:- BORDERLINE ECG - SINUS RHYTHM BORDERLINE T ABNORMALITIES, INFERIOR LEADS : Confirmed by: Domo Pompa 10-Mar-2018 10:11:05
[2018-03-10] MEDS: RANOLAZINE 500 MG TAB.SR.12H PO SCH (11:05)
[2018-03-10] MEDS: ARIPIPRAZOLE 5 MG TABLET PO SCH (11:07)
[2018-03-10] MEDS: BENZTROPINE MESYLATE 1 MG TABLET PO SCH ×2 (11:08→17:19)
[2018-03-10] MEDS: METOPROLOL TARTRATE 25 MG TABLET PO SCH ×2 (11:09→17:19)
[2018-03-10] MEDS: PANTOPRAZOLE SODIUM 40 MG VIAL IV SCH (11:15)
--- NOTE | 2018-03-10 13:11 | PDOC PROGRESS REPORT ---
Subjective Progress Note for:: 03/10/18 Subjective:: Patient is currently doing well His denied any chest pain Cardiac enzyme is all negative and seen by the cardiology Patient CT angiogram was also negative Except small gallstones Reason For Visit: CHEST PAIN Physical Exam Vital Signs: Temp Pulse Resp BP Pulse Ox 98.0 F 82 18 131/74 H 93 03/10/18 11:37 03/10/18 11:37 03/10/18 11:37 03/10/18 11:37 03/10/18 11:37 Intake & Output 03/09/18 03/10/18 03/11/18 06:59 06:59 06:59 Weight 144.3 kg General appearance: PRESENT: no acute distress, well-developed, well-nourished Head exam: PRESENT: atraumatic, normocephalic Eye exam: PRESENT: conjunctiva pink, EOMI, PERRLA. ABSENT: scleral icterus Ear exam: PRESENT: normal external ear exam Mouth exam: PRESENT: moist, tongue midline Neck exam: PRESENT: full ROM. ABSENT: carotid bruit, JVD, lymphadenopathy, thyromegaly Respiratory exam: PRESENT: clear to auscultation tricia Cardiovascular exam: PRESENT: RRR. ABSENT: diastolic murmur, rubs, systolic murmur Pulses: PRESENT: normal dorsalis pedis pul, +2 pedal pulses bilateral Vascular exam: PRESENT: normal capillary refill GI/Abdominal exam: PRESENT: normal bowel sounds, soft. ABSENT: distended, guarding, mass, organolmegaly, rebound, tenderness Rectal exam: PRESENT: deferred Extremities exam: ABSENT: pedal edema Musculoskeletal exam: PRESENT: ambulatory Neurological exam: PRESENT: alert, awake, oriented to person, oriented to place , oriented to time, oriented to situation, CN II-XII grossly intact. ABSENT: motor sensory deficit Psychiatric exam: PRESENT: appropriate affect, normal mood. ABSENT: homicidal ideation, suicidal ideation Skin exam: PRESENT: dry, intact, warm. ABSENT: cyanosis, rash Results Laboratory Results: 03/10/18 07:10 03/10/18 07:10 03/09/18 03/10/18 03/10/18 19:13 07:10 07:10 WBC 8.1 RBC 4.88 Hgb 14.6 Hct 42.3 MCV 87 MCH 29.9 MCHC 34.4 RDW 13.4 Plt Count 206 Seg Neutrophils % 64.8 Lymphocytes % 24.8 Monocytes % 7.6 Eosinophils % 1.6 Basophils % 1.2 Absolute Neutrophils 5.3 Absolute Lymphocytes 2.0 Absolute Monocytes 0.6 Absolute Eosinophils 0.1 Absolute Basophils 0.1 Sodium 136.7 L Potassium 4.4 Chloride 98 Carbon Dioxide 24 Anion Gap 15 BUN 10 Creatinine 0.82 Est GFR ( Amer) > 60 Est GFR (Non-Af Amer) > 60 Glucose 315 H Calcium 9.3 Magnesium 1.9 Total Bilirubin 0.8 AST 50 ALT 71 Alkaline Phosphatase 84 Total Protein 6.5 Albumin 3.8 TSH 2.39 03/09/18 03/09/18 03/10/18 19:13 19:13 01:12 Creatine Kinase 72 55 CK-MB (CK-2) 0.63 Troponin I < 0.012 03/10/18 03/10/18 03/10/18 01:12 07:10 07:10 Creatine Kinase 75 CK-MB (CK-2) 0.63 0.85 Troponin I < 0.012 < 0.012 Impressions: Chest/Abdomen CTA 03/09/18 00:00 IMPRESSION: 1. There is no evidence of pulmonary emboli. 2. A single gallstone is seen. Assessment & Plan - Diagnosis (1) Chest pain Qualifiers: Chest pain type: unspecified Qualified Code(s): R07.9 - Chest pain, unspecified Is this a current diagnosis for this admission?: Yes Plan: All cardiac workup is negative and CT scan is also negative (2) Coronary artery disease Qualifiers: Coronary Disease-Associated Artery/Lesion type: unspecified vessel or lesion type Associated angina: without angina Is this a current diagnosis for this admission?: Yes Plan: According to the cardiology adjust the medications follow outpatient (3) Type 2 diabetes mellitus Qualifiers: Diabetes mellitus residential insulin use: with residential use Diabetes mellitus complication status: with unspecified complications Qualified Code(s) : E11.8 - Type 2 diabetes mellitus with unspecified complications; Z79.4 - medical terminologist (current) use of insulin; Z79.4 - medical terminologist (current) use of insulin; Z79.4 - jail (current) use of insulin; Z79.4 - medical terminologist (current) use of insulin Is this a current diagnosis for this admission?: Yes Plan: His insulin sliding scale (4) Hypertension Qualifiers: Hypertension type: essential hypertension Qualified Code(s): I10 - Essential (primary) hypertension Is this a current diagnosis for this admission?: Yes Plan: Continues to current medication (5) Sleep apnea Qualifiers: Sleep apnea type: unspecified type Qualified Code(s): G47.30 - Sleep apnea , unspecified Is this a current diagnosis for this admission?: Yes Plan: Continues to CPAP (6) Bipolar disorder Qualifiers: Active/Remission status: currently active Is this a current diagnosis for this admission?: Yes Plan: he is currently seeing outpatient psych continues to current medications (7) Hyperlipidemia Qualifiers: Hyperlipidemia type: unspecified Qualified Code(s): E78.5 - Hyperlipidemia , unspecified Is this a current diagnosis for this admission?: Yes (8) Noncompliance Is this a current diagnosis for this admission?: Yes (9) Benign prostatic hyperplasia Qualifiers: Lower urinary tract symptom presence: symptoms absent Qualified Code(s): N40.0 - Benign prostatic hyperplasia without lower urinary tract symptoms Is this a current diagnosis for this admission?: Yes Plan: Continue to the Flomax (10) Gastroesophageal reflux disease Qualifiers: Esophagitis presence: without esophagitis Qualified Code(s): K21.9 - Gastro -esophageal reflux disease without esophagitis Is this a current diagnosis for this admission?: Yes Plan: We will put the p.o. PPI on discharge - Time Time Spent with patient: 15-24 minutes Medications reviewed and adjusted accordingly: Yes Anticipated discharge: Home Within: within 24 hours, Other - Inpatient Certification Medical Necessity: Need Close Monitoring Due to Risk of Patient Decompensation Post Hospital Care: D/C Catering Convention Services Manager Documentation - Plan Summary Plan Summary: Will get the ultrasound for the gallstones if is all stable will discharge the patient home today as per patient is cleared from the cardiology standpoint
--- NOTE | 2018-03-10 15:51 | RADIOLOGY REPORT (SQ) ---
EXAM DESCRIPTION: U/S ABDOMEN COMPLETE W/O DOP COMPLETED DATE/TIME: 03/10/2018 3:20 pm REASON FOR STUDY: gall stone E03.9 HYPOTHYROIDISM, UNSPECIFIED R07.89 OTHER CHEST PAIN COMPARISON: 07/09/2016 TECHNIQUE: Dynamic and static grayscale images acquired of the abdomen and recorded on PACS. Additio nal selected color Doppler and spectral images recorded. LIMITATIONS: Study limited due to acoustical interference from fat or from air in the bowel. FINDINGS: PANCREAS: Obscured. LIVER: Echotexture is coarse with increased echogenicity consistent with fatty infiltration. LIVER VASCULATURE: Normal directional flow of the main portal vein and hepatic veins. GALLBLADDER: No stones. Normal wall thickness. No pericholecystic fluid. ULTRASOUND-DETECTED ALMANZAR'S SIGN: Negative. INTRAHEPATIC DUCTS AND COMMON DUCT: CBD and intrahepatic ducts normal caliber. No filling defects. INFERIOR VENA CAVA: Normal flow. AORTA: No aneurysm. RIGHT KIDNEY: Normal size. Normal echogenicity. No solid or suspicious masses. No hydronephros is. No calcifications. LEFT KIDNEY: Normal size. Normal echogenicity. No solid or suspicious masses. No hydronephrosi s. No calcifications. SPLEEN:Normal size. No solid masses. PERITONEAL AND PLEURAL SPACES: No ascites or effusions. OTHER: No other significant finding. IMPRESSION: FATTY INFILTRATION OF THE LIVER. NO OTHER SIGNIFICANT FINDING IN THE VISUALIZED ABDOMEN. TECHNICAL DOCUMENTATION: JOB ID: [id number] [employer]- All Rights Reserved Reading location - IP/workstation name: [email or web address]
[2018-03-10 16:36] VITALS: BP 120/63
--- NOTE | 2018-03-10 16:59 | PDOC DISCHARGE SUMMARY ---
General - Admit/Disc Date/PCP Admission Date/Primary Care Provider: 03/09/18 17:12 DONALD CAMARGO MD Discharge Date: 03/10/18 - Discharge Diagnosis (1) Chest pain Is this a current diagnosis for this admission?: Yes Summary: Patient's all initial cardiac workup CT angiogram is all negative abdominal ultrasound was also stable follow outpatients cardiology patient is currently chest pain-free most likely a GI related (2) Coronary artery disease Is this a current diagnosis for this admission?: Yes Summary: Currently all stable follow outpatients cardiology Dr. Pompa (3) Type 2 diabetes mellitus Is this a current diagnosis for this admission?: Yes Summary: Patient is a very noncompliance with the diet continues to current insulin sliding scales (4) Hypertension Is this a current diagnosis for this admission?: Yes Summary: Clear all stable (5) Sleep apnea Is this a current diagnosis for this admission?: Yes Summary: Continues use his CPAP (6) Bipolar disorder Is this a current diagnosis for this admission?: Yes Summary: She does follow with the psych (7) Hyperlipidemia Is this a current diagnosis for this admission?: Yes (8) Noncompliance Is this a current diagnosis for this admission?: Yes Summary: Time discussed with the patient and the regarding the compliance with the diet and medications (9) Benign prostatic hyperplasia Is this a current diagnosis for this admission?: Yes (10) Gastroesophageal reflux disease Is this a current diagnosis for this admission?: Yes Summary: Consider change from Pepcid to the Protonix p.o. - Additional Information Resuscitation Status: Full Code Discharge Diet: Diabetic Discharge Activity: Activity As Tolerated Prescriptions: Ranolazine [Ranexa 500 mg Tab.sr] 500 mg PO Q12 #60 tab.sr.12h Home Medications: Aripiprazole [Abilify 15 mg Tablet] 15 mg PO Q12 03/09/18 Atorvastatin Calcium [Lipitor 20 mg Tablet] 20 mg PO QHS 03/09/18 Benztropine Mesylate [Cogentin 1 mg Tablet] 1 mg PO BID 03/09/18 Diazepam [Valium 5 mg Tablet] 5 mg PO DAILY 03/09/18 Famotidine [Pepcid 20 mg Tablet] 20 mg PO BID 03/09/18 Fluticasone Propionate [Flonase Nasal Asher 50 Mcg/Asher 16 gm] 1 spray NASL DAILY 03/09/18 Glipizide [Glucotrol 10 mg Tablet] 10 mg PO DAILY 03/09/18 Insulin Aspart [Novolog Flexpen] 0 units SQ .SLIDING SCALE 03/09/18 Insulin Detemir [Levemir Flextouch] 55 units SQ DAILY 03/09/18 Isosorbide Mononitrate [Isosorbide Mononitrate ER] 30 mg PO DAILY 03/09/18 Latanoprost [Xalatan 0.005% Oph Soln 2.5 ml] 1 drop OU QHS 03/09/18 Levocetirizine Dihydrochloride [Xyzal] 5 mg PO DAILY 03/09/18 Metoprolol Succinate [Toprol Xl 25 mg Tab.sr] 25 mg PO Q12 03/09/18 Montelukast Sodium [Singulair 10 mg Tablet] 10 mg PO QPM 03/09/18 Omeprazole 20 mg PO BID 03/09/18 Paroxetine HCl [Paxil] 40 mg PO DAILY 03/09/18 Tamsulosin HCl [Flomax 0.4 mg Cap.sr] 0.4 mg PO QPM 03/09/18 Trazodone HCl [Desyrel] 100 mg PO BID 03/09/18 Ranolazine [Ranexa 500 mg Tab.sr] 500 mg PO Q12 #60 tab.sr.12h 03/10/18 History of Present Illness History of Present Illness: YURY BAZAN is a 57 year old male This is a 57-year-old male with a history of the coronary artery disease status post stent placement at [facility] several years back with a history of the type 2 diabetes mellitus history of a sleep apnea history of the hypertensions hyperlipidemia and noncompliance in the multiple psych issues went to the cardiology office Dr. Pompa and the patient was complaining of chest pain and the patient had a EKG was done which is unchanged but patient sent to the emergency department for further evaluations In the emergency department patient initial EKG and first set of cardiac enzyme is all negative Patient all the other workup was all stable except patient's blood sugar was 400 range Patient also received a nitroglycerin and morphine when I saw the patient's patient's denied any chest pain denied any shortness of the breath Patients have a stress test was done in January and according to Dr. Pompa was all stable Patient's otherwise denied any other symptoms Patient and his in the room no other concerns decided to admit the patient in the hospital for further evaluations Hospital Course Hospital Course: This 57-year-old male presenting the emergency department with a complaint of her chest pain with the significant medical problems patient admitting in the hospital to rule out acute coronary syndromes All cardiac enzyme is negative EKGs no change patient seen by the cardiology Dr. Pompa and suggest the patient's follow outpatients no need for any further intervention at this point Have recently a stress test done in January was all stable Patient's CT angiogram is also negative Ultrasound of the abdomen was all stable except fatty liver he is very noncompliance with the diet and a blood sugar is not under well control Several adjust the medications are not controlling the diet and exercise Patient's otherwise remained stable Patients walk in the hallway several times without any chest pain Discussed with the patient and the Follow outpatient cardiology and following office Physical Exam Vital Signs: Temp Pulse Resp BP Pulse Ox 98.0 F 66 14 125/58 L 95 03/10/18 15:59 03/10/18 15:59 03/10/18 15:59 03/10/18 15:59 03/10/18 15:59 Intake & Output 03/09/18 03/10/18 03/11/18 06:59 06:59 06:59 Intake Total 675 Balance 675 Weight 144.3 kg General appearance: PRESENT: no acute distress, well-developed, well-nourished Head exam: PRESENT: atraumatic, normocephalic Eye exam: PRESENT: conjunctiva pink, EOMI, PERRLA. ABSENT: scleral icterus Ear exam: PRESENT: normal external ear exam Mouth exam: PRESENT: moist, tongue midline Neck exam: PRESENT: full ROM. ABSENT: carotid bruit, JVD, lymphadenopathy, thyromegaly Respiratory exam: PRESENT: clear to auscultation tricia Cardiovascular exam: PRESENT: RRR. ABSENT: diastolic murmur, rubs, systolic murmur Pulses: PRESENT: normal dorsalis pedis pul, +2 pedal pulses bilateral Vascular exam: PRESENT: normal capillary refill GI/Abdominal exam: PRESENT: normal bowel sounds, soft. ABSENT: distended, guarding, mass, organolmegaly, rebound, tenderness Rectal exam: PRESENT: deferred Extremities exam: ABSENT: pedal edema Musculoskeletal exam: PRESENT: ambulatory Neurological exam: PRESENT: alert, awake, oriented to person, oriented to place , oriented to time, oriented to situation, CN II-XII grossly intact. ABSENT: motor sensory deficit Psychiatric exam: PRESENT: appropriate affect, normal mood. ABSENT: homicidal ideation, suicidal ideation Skin exam: PRESENT: dry, intact, warm. ABSENT: cyanosis, rash Results Laboratory Results: 03/10/18 07:10 03/10/18 07:10 03/09/18 03/10/18 03/10/18 19:13 07:10 07:10 WBC 8.1 RBC 4.88 Hgb 14.6 Hct 42.3 MCV 87 MCH 29.9 MCHC 34.4 RDW 13.4 Plt Count 206 Seg Neutrophils % 64.8 Lymphocytes % 24.8 Monocytes % 7.6 Eosinophils % 1.6 Basophils % 1.2 Absolute Neutrophils 5.3 Absolute Lymphocytes 2.0 Absolute Monocytes 0.6 Absolute Eosinophils 0.1 Absolute Basophils 0.1 Sodium 136.7 L Potassium 4.4 Chloride 98 Carbon Dioxide 24 Anion Gap 15 BUN 10 Creatinine 0.82 Est GFR ( Amer) > 60 Est GFR (Non-Af Amer) > 60 Glucose 315 H Calcium 9.3 Magnesium 1.9 Total Bilirubin 0.8 AST 50 ALT 71 Alkaline Phosphatase 84 Total Protein 6.5 Albumin 3.8 TSH 2.39 03/09/18 03/09/18 03/10/18 19:13 19:13 01:12 Creatine Kinase 72 55 CK-MB (CK-2) 0.63 Troponin I < 0.012 03/10/18 03/10/18 03/10/18 01:12 07:10 07:10 Creatine Kinase 75 CK-MB (CK-2) 0.63 0.85 Troponin I < 0.012 < 0.012 Impressions: Chest/Abdomen CTA 03/09/18 00:00 IMPRESSION: 1. There is no evidence of pulmonary emboli. 2. A single gallstone is seen. Abdomen Ultrasound 03/10/18 00:00 IMPRESSION: FATTY INFILTRATION OF THE LIVER. NO OTHER SIGNIFICANT FINDING IN THE VISUALIZED ABDOMEN. Qualifiers - * PATIENT BEING DISCHARGED WITH ANY OF THE FOLLOWING DIAGNOSIS: No VTE patient discharged on overlapping Therapy?: Yes Plan Time Spent: Greater than 30 Minutes - Follow outpatients cardiology and follow in office in 1 week
== END 2018-03-10 17:50 | disposition home or self-care (01) ==
LOC: ER 13:38 → EH 17:12 → OBSVTOIN 17:12 → INTOOBSV 17:12 → OBSVTOIN 17:21 → 3N 20:28
PROVIDERS: ADMIT Family Medicine; ATTEND Family Medicine
DX: R07.89 Other chest pain (principal); I25.10 Atherosclerotic heart disease of native coronary artery without angina pectoris; E11.65 Type 2 diabetes mellitus with hyperglycemia; I10 Essential (primary) hypertension; G47.30 Sleep apnea, unspecified; F31.9 Bipolar disorder, unspecified; E78.5 Hyperlipidemia, unspecified; N40.0 Benign prostatic hyperplasia without lower urinary tract symptoms; K21.9 Gastro-esophageal reflux disease without esophagitis; I25.2 Old myocardial infarction; E66.9 Obesity, unspecified; K80.80 Other cholelithiasis without obstruction; R00.0 Tachycardia, unspecified; Z68.42 Body mass index [BMI] 45.0-49.9, adult; Z91.11 Patient's noncompliance with dietary regimen; Z79.4 Long term (current) use of insulin; Z91.14 Patient's other noncompliance with medication regimen; Z79.899 Other long term (current) drug therapy; Z95.5 Presence of coronary angioplasty implant and graft
CPT/HCPCS: 93005 ×3; 96376; 99285; 96374; 96375; 36415 ×2; 82553 ×2; 82962 ×2; 82550 ×2; 83735; 84443; 85025 ×2; 80053 ×2; 81001; 84484 ×2; 85379; 76700; 71275; 93010 ×2; 94640 ×2; G0378; A9270 ×20; J2270; J1650; C9113 ×2; J2405; J1815; J7620; S0164

== ENCOUNTER 2018-07-21 13:12 | Emergency (ER) | payer MEDICARE, MEDICAID ==
[2018-07-21 13:49] VITALS: BP 182/82
[2018-07-21] MEDS ORDERED: FLUCONAZOLE 100 MG TABLET PO ONE (14:29)
--- NOTE | 2018-07-21 14:36 | ER Document Report ---
HPI - HPI Patient complains to provider of: penis discharge sore Time Seen by Provider: 07/21/18 14:08 Onset: Other - 2 months Onset/Duration: Persistent Quality of pain: Burning Severity: Severe Pain Level: 4 Context: Patient presents emergency department with complaints of sore on his private parts. He reports that for the past 2 months he has had this sore. He reports he has been evaluated by urologist who has told him that he probably needs to get his foreskin clipped. He has another appointment scheduled with the urologist August 24. Patient reports for the past 2 weeks he has had a hard time pulling his foreskin all the way down. He has to really play with it and then sometimes he has a hard time getting the skin back up. He reports he is voiding without problems. He reports it block when he voids. Patient is a diabetic reports his sugars are between 200-300 which is normal for him. Denies other problems such as fever vomiting diarrhea. Associated Symptoms: None Exacerbated by: Other - voiding Relieved by: Denies Similar symptoms previously: Yes Recently seen / treated by doctor: Yes - REPRODUCTIVE Reproductive: DENIES: : Past Medical History - General Information source: Patient - Social History Smoking Status: Never Smoker Cigarette use (# per day): No Frequency of alcohol use: None Drug Abuse: None Lives with: Family Family History: Arthritis, CAD, DM, Hyperlipidemia, Hypertension. denies: COPD, CVA, Malignancy, Thyroid Disfunction Patient has suicidal ideation: No Patient has homicidal ideation: No - Past Medical History Cardiac Medical History: Reports: Hx Heart Attack - x3, Hx Hypercholesterolemia, Hx Hypertension Pulmonary Medical History: Reports: Hx Asthma, Hx COPD, Hx Sleep Apnea Endocrine Medical History: Reports: Hx Diabetes Mellitus Type 2 Renal/ Medical History: Denies: Hx Peritoneal Dialysis GI Medical History: Reports: Hx Gastroesophageal Reflux Disease Musculoskeletal Medical History: Reports Hx Arthritis, Reports Hx Musculoskeletal Deformity, Reports Hx Musculoskeletal Trauma Psychiatric Medical History: Reports: Hx Bipolar Disorder, Hx Depression, Hx Schizophrenia Traumatic Medical History: Reports: Hx Fractures Past Surgical History: Reports: Hx Cardiac Catheterization, Hx Cardiac Surgery - stent x1, Hx Orthopedic Surgery - Bilateral total knee, Hx Tonsillectomy - Immunizations Immunizations up to date: Yes Hx Diphtheria, Pertussis, Tetanus Vaccination: Yes - 2013 Hx Pneumococcal Vaccination: 07/28/13 Vertical Provider Document - CONSTITUTIONAL Agree With Documented VS: Yes Exam Limitations: No Limitations General Appearance: WD/WN - INFECTION CONTROL TRAVEL OUTSIDE OF THE [place] IN LAST 30 DAYS: No - HEENT HEENT: Atraumatic, Normocephalic - NECK Neck: Supple - RESPIRATORY Respiratory: No Respiratory Distress - CARDIOVASCULAR Cardiovascular: Regular Rate - GI/ABDOMEN Gastrointestinal: Abdomen Soft, Abdomen Non-Tender - REPRODUCTIVE Notes: Patient is uncircumcised area has some erythema no obvious discharge noted. Unable to pull foreskin back no testicular pain no swelling - MUSCULOSKELETAL/EXTREMETIES Musculoskeletal/Extremeties: SUSI MOTA - NEURO Level of Consciousness: Awake, Alert, Appropriate Motor/Sensory: No Motor Deficit - DERM Integumentary: Warm, Dry Course - Re-evaluation Re-evalutation: 07/21/18 Dr. Bee consulted. He came over and assessed patient attempted to pull foreskin back also. Very little movement. He advises oral antifungal here and topical antifungal prescription. He also instructed patient of the importance of follow-up with urologist. We discussed checking patient's glucose but patient reports he is usually between 2 and 300 and checks it on a regular basis. Patient did admit he is able to void without problems although it does burn sometimes on the skin. Patient also reports he has an appointment with a urologist on August 24. He was instructed on the topical antifungal. He was instructed to return the emergency department should he have any trouble voiding. He verbalized understanding to all instructions. Dictation of this chart was performed using voice recognition software; therefore, there may be some unintended grammatical errors. - Vital Signs Vital signs: Temp Pulse Resp BP Pulse Ox 98.3 F 91 18 182/82 H 94 07/21/18 13:43 07/21/18 13:43 07/21/18 13:43 07/21/18 13:43 07/21/18 13:43 Discharge - Discharge Clinical Impression: Balanitis Condition: Stable Disposition: HOME, SELF-CARE Instructions: Balanitis (OM), Topical Antifungal (OM) Additional Instructions: *You have been evaluated for penile pain, balanitis *Apply antifungal cream as prescribed *Wash the area well *Follow up with your urologist as scheduled *Return to ED for worsening condition, changes, needs *Return to ED if not better in 24 hours Prescriptions: Ketoconazole 30 gm TP DAILY #1 cream..g. Forms: Elevated Blood Pressure Referrals: DONALD CAMARGO MD [Primary Care Provider] - Follow up in 1 week
== END 2018-07-21 14:51 | disposition home or self-care (01) ==
LOC: ER 13:12
DX: N48.1 Balanitis (principal); E11.9 Type 2 diabetes mellitus without complications; I25.2 Old myocardial infarction; I10 Essential (primary) hypertension; J44.9 Chronic obstructive pulmonary disease, unspecified
CPT/HCPCS: 99283; A9270

== ENCOUNTER 2018-08-03 12:37 | Emergency (ER) | payer MEDICARE, MEDICAID ==
--- NOTE | 2018-08-03 13:00 | ER Document Report ---
ED Medical Screen (RME) - General Chief Complaint: Rectal Bleeding Stated Complaint: RECTAL BLEEDING Time Seen by Provider: 08/03/18 12:55 Primary Care Provider: DONALD CAMARGO MD [Primary Care Provider] - Follow up as needed Notes: Chief complaint: Rectal bleed History of complain:( obtained from----patient) 58 years old male on aspirin presents today with rectal bleed since this morning. No abdominal pain. With a history of hemorrhoids in the past PHYSICAL EXAMINATION: GENERAL: Well-appearing, well-nourished and in no acute distress. Morbid obesity HEAD: Atraumatic, normocephalic. EYES: Pupils equal round and reactive to light, extraocular movements intact, conjunctiva are normal. LUNGS: Breath sounds clear to auscultation bilaterally and equal. No wheezes rales or rhonchi. HEART: Regular rate and rhythm without murmurs ABDOMEN: Soft, nontender, nondistended abdomen. No guarding, no rebound. No masses appreciated. Dictation was performed using [employer] voice recognition software TRAVEL OUTSIDE OF THE [place] IN LAST 30 DAYS: No - Related Data Allergies/Adverse Reactions: No Known Drug Allergies Allergy (Verified 08/03/18 12:37) Cheese Allergy (Uncoded 08/03/18 12:37) VINEGAR Allergy (Uncoded 08/03/18 12:37) Hives Past Medical History - Social History Chew tobacco use (# tins/day): No Frequency of alcohol use: None Drug Abuse: None - Past Medical History Cardiac Medical History: Reports: Hx Heart Attack - x3, Hx Hypercholesterolemia, Hx Hypertension Pulmonary Medical History: Reports: Hx Asthma, Hx COPD, Hx Sleep Apnea Endocrine Medical History: Reports: Hx Diabetes Mellitus Type 2 Renal/ Medical History: Denies: Hx Peritoneal Dialysis GI Medical History: Reports: Hx Gastroesophageal Reflux Disease Musculoskeltal Medical History: Reports Hx Arthritis, Reports Hx Musculoskeletal Deformity, Reports Hx Musculoskeletal Trauma Psychiatric Medical History: Reports: Hx Bipolar Disorder, Hx Depression, Hx Schizophrenia Traumatic Medical History: Reports: Hx Fractures Past Surgical History: Reports: Hx Cardiac Catheterization, Hx Cardiac Surgery - stent x1, Hx Orthopedic Surgery - Bilateral total knee, Hx Tonsillectomy - Immunizations Immunizations up to date: Yes Hx Diphtheria, Pertussis, Tetanus Vaccination: Yes - 2013 Physical Exam - Vital signs Vitals: Temp Pulse Resp BP Pulse Ox 98.0 F 86 20 165/90 H 95 08/03/18 12:42 08/03/18 12:42 08/03/18 12:42 08/03/18 12:42 08/03/18 12:42 Course - Vital Signs Vital signs: Temp Pulse Resp BP Pulse Ox 98.0 F 86 20 165/90 H 95 08/03/18 12:42 08/03/18 12:42 08/03/18 12:42 08/03/18 12:42 08/03/18 12:42 Doctor's Discharge - Discharge Referrals: DONALD CAMARGO MD [Primary Care Provider] - Follow up as needed
[2018-08-03 13:20] LABS: ABSOLUTE BASOPHILS # (AUTO) 0.1 10^3/uL (0.0-0.2); ABSOLUTE EOSINOPHILS # (AUTO) 0.1 10^3/uL (0.0-0.6); ABSOLUTE LYMPHOCYTES (AUTO) 1.8 10^3/uL (0.5-4.7); ABSOLUTE MONOCYTES (AUTO) 0.5 10^3/uL (0.1-1.4); ABSOLUTE NEUT (AUTO) 5.9 10^3/uL (1.7-8.2); BASOPHILS % (AUTO) 0.7 % (0-2); EOSINOPHILS % (AUTO) 0.9 % (0-6); HEMATOCRIT 46.2 % (37.9-51.0); HEMOGLOBIN 16.1 g/dL (13.5-17.0); LYMPHOCYTES % (AUTO) 22.1 % (13-45); MEAN CORPUSCULAR HEMOGLOBIN 30.1 pg (27.0-33.4); MEAN CORPUSCULAR HGB CONC 34.7 g/dL (32.0-36.0); MEAN CORPUSCULAR VOLUME 87 fl (80-97); MONOCYTES % (AUTO) 5.8 % (3-13); PLATELET COUNT 223 10^3/uL (150-450); RED BLOOD COUNT 5.34 10^6/uL (4.35-5.55); RED CELL DISTRIBUTION WIDTH 13.1 % (11.5-14.0); SEGMENTED NEUTROPHILS % (AUTO) 70.5 % (42-78); TOTAL CELLS COUNTED % (AUTO) 100 %; WHITE BLOOD COUNT 8.3 10^3/uL (4.0-10.5)
[2018-08-03 13:24] LABS: INTERNATIONAL RATION (INR) 0.94
[2018-08-03 13:43] LABS: ALANINE AMINOTRANSFERASE 48 U/L (21-72); ALBUMIN 4.4 g/dL (3.5-5.0); ALKALINE PHOSPHATASE 111 U/L (38-126); ANION GAP 12 (5-19); ASPARTATE AMINO TRANSFERASE 31 U/L (17-59); BILIRUBIN,DIRECT 0.2 mg/dL (0.0-0.4); BILIRUBIN,TOTAL 0.6 mg/dL (0.2-1.3); BLOOD UREA NITROGEN 16 mg/dL (7-20); CALCIUM 9.9 mg/dL (8.4-10.2); CARBON DIOXIDE 26 mmol/L (22-30); CHLORIDE 98 mmol/L (98-107); POTASSIUM 4.5 mmol/L (3.6-5.0); SODIUM 135.5 mmol/L (137-145); TOTAL PROTEIN 7.5 g/dL (6.3-8.2)
[2018-08-03 13:51] LABS: GLUCOSE 450 mg/dL (75-110)
[2018-08-03] MEDS ORDERED: INSULIN REG, HUMAN 100 UNIT/ML 3 ML VIAL (PYX) SUBCUT ONE (13:57)
--- NOTE | 2018-08-03 14:02 | ER Document Report ---
ED General - General Chief Complaint: Rectal Bleeding Stated Complaint: RECTAL BLEEDING Time Seen by Provider: 08/03/18 12:55 Primary Care Provider: DONALD CAMARGO MD [Primary Care Provider] - Follow up in 3-5 days TRAVEL OUTSIDE OF THE [place] IN LAST 30 DAYS: No - HPI Notes: Patient is a 58-year-old male that presents to the emergency department for chief complaint of rectal bleeding. Patient reports 3 episodes of rectal bleeding. He states the first 1 started after a painful bowel movement. He reports usually he has loose bowel movements but today it was much more firm than usual. He does have a history of hemorrhoids in the past. He reports a sharp anal pain that is nonradiating. The pain was worse with bowel movements. He denies any lightheadedness, palpitations, shortness of breath and abdominal pain. He is not on blood thinning medications. Past Medical History: Hypertension, hyperlipidemia, diabetes, hemorrhoids Past Surgical History: Right shoulder surgery, bilateral knee surgeries Social History: Denies tobacco, alcohol, and drug use Family History: Reviewed and noncontributory for presenting illness Allergies: Reviewed, see documented allergy list. REVIEW OF SYSTEMS: CONSTITUTIONAL : No fever No chills No diaphoresis No recent illness EENT: No vision changes No congestion No sore throat CARDIOVASCULAR: No chest pain No palpitations RESPIRATORY: No shortness of breath No cough No difficulty breathing GASTROINTESTINAL: No abdominal pain No nausea No vomiting No diarrhea GENITOURINARY: Rectal bleeding No dysuria No hematuria No difficulty urinating MUSCULOSKELETAL: No back pain No leg pain No arm pain SKIN: No rashes No lesions LYMPHATIC: No swollen, enlarged glands. NEUROLOGICAL: No lightheadedness No headache No weakness No paresthesias PSYCHIATRIC: No anxiety No depression PHYSICAL EXAMINATION: Vital signs reviewed, nursing noted reviewed. GENERAL: Well-appearing, obese, and in no acute distress. HEAD: Atraumatic, normocephalic. EYES: Eyes appear normal, extraocular movements intact, sclera anicteric, conjunctiva are normal. ENT: nares patent, oropharynx clear without exudates. Moist mucous membranes. NECK: Normal range of motion, supple without lymphadenopathy LUNGS: Breath sounds clear to auscultation bilaterally and equal. No wheezes rales or rhonchi. HEART: Regular rate and rhythm without murmurs ABDOMEN: Protuberant, soft, nontender, normoactive bowel sounds. No rebound, guarding, or rigidity. No masses appreciated. : 1 large soft nonthrombosed external hemorrhoid with no active bleeding, tender to palpation, normal rectal tone, brown stool EXTREMITIES: Nontender, good range of motion, no pitting or edema. NEUROLOGICAL: No focal neurological deficits. Moves all extremities spontaneously Motor and sensory grossly intact on exam. PSYCH: Normal mood, normal affect. SKIN: Warm, Dry, normal turgor, no rashes or lesions noted on exposed skin - Related Data Allergies/Adverse Reactions: No Known Drug Allergies Allergy (Verified 08/03/18 12:37) Cheese Allergy (Uncoded 08/03/18 12:37) VINEGAR Allergy (Uncoded 08/03/18 12:37) Hives Past Medical History - Social History Smoking Status: Former Smoker Chew tobacco use (# tins/day): No Frequency of alcohol use: None Drug Abuse: None Family History: Arthritis, CAD, DM, Hyperlipidemia, Hypertension. denies: COPD, CVA, Malignancy, Thyroid Disfunction Patient has suicidal ideation: No Patient has homicidal ideation: No - Past Medical History Cardiac Medical History: Reports: Hx Heart Attack - x3, Hx Hypercholesterolemia, Hx Hypertension Pulmonary Medical History: Reports: Hx Asthma, Hx COPD, Hx Sleep Apnea Endocrine Medical History: Reports: Hx Diabetes Mellitus Type 2 Renal/ Medical History: Denies: Hx Peritoneal Dialysis GI Medical History: Reports: Hx Gastroesophageal Reflux Disease Musculoskeletal Medical History: Reports Hx Arthritis, Reports Hx Musculoskeletal Deformity, Reports Hx Musculoskeletal Trauma Psychiatric Medical History: Reports: Hx Bipolar Disorder, Hx Depression, Hx Schizophrenia Traumatic Medical History: Reports: Hx Fractures Past Surgical History: Reports: Hx Cardiac Catheterization, Hx Cardiac Surgery - stent x1, Hx Orthopedic Surgery - Bilateral total knee, Hx Tonsillectomy - Immunizations Immunizations up to date: Yes Hx Diphtheria, Pertussis, Tetanus Vaccination: Yes - 2013 Hx Pneumococcal Vaccination: 07/28/13 Physical Exam - Vital signs Vitals: Temp Pulse Resp BP Pulse Ox 98.0 F 86 20 165/90 H 95 08/03/18 12:42 08/03/18 12:42 08/03/18 12:42 08/03/18 12:42 08/03/18 12:42 Course - Re-evaluation Re-evalutation: 08/03/18 14:00 Vitals reviewed. Nursing notes reviewed. Patient has a normal hemoglobin. He has 1 external hemorrhoid that is not thrombosed with no active bleeding. Patient was found to have a blood sugar of 450. He has not taken his afternoon dose of insulin. He states his morning glucose was 122. He states it is 35 units but he is not sure what kind of insulin he takes. Chart review does not show an insulin with a dose of 35 units. He will be given regular subcu insulin for his hyperglycemia. Patient does not have any anion gap to suggest DKA. He states he has an appointment on Tuesday with GI who has managed his previous hemorrhoids in the past. I did counselor education professor him on sits baths and he will be started on Colace for his hemorrhoid. Patient also instructed to get Preparation H cream. He is in agreement with this plan of care. 08/03/18 14:01 Laboratory 08/03/18 08/03/18 08/03/18 13:08 13:08 13:08 WBC 8.3 RBC 5.34 Hgb 16.1 Hct 46.2 MCV 87 MCH 30.1 MCHC 34.7 RDW 13.1 Plt Count 223 Seg Neutrophils % 70.5 Lymphocytes % 22.1 Monocytes % 5.8 Eosinophils % 0.9 Basophils % 0.7 Absolute Neutrophils 5.9 Absolute Lymphocytes 1.8 Absolute Monocytes 0.5 Absolute Eosinophils 0.1 Absolute Basophils 0.1 PT 13.0 INR 0.94 Sodium 135.5 L Potassium 4.5 Chloride 98 Carbon Dioxide 26 Anion Gap 12 BUN 16 Creatinine 0.79 Est GFR ( Amer) > 60 Est GFR (Non-Af Amer) > 60 Glucose 450 H* Calcium 9.9 Total Bilirubin 0.6 Direct Bilirubin 0.2 Neonat Total Bilirubin Not Reportable Neonat Direct Bilirubin Not Reportable Neonat Indirect Bili Not Reportable AST 31 ALT 48 Alkaline Phosphatase 111 Total Protein 7.5 Albumin 4.4 08/03/18 14:02 After insulin patient's blood glucose did improve to 350. Patient will be discharged in stable condition. 08/03/18 15:48 - Vital Signs Vital signs: Temp Pulse Resp BP Pulse Ox 98.0 F 86 20 165/90 H 95 08/03/18 12:42 08/03/18 12:42 08/03/18 12:42 08/03/18 12:42 08/03/18 12:42 - Laboratory Result Diagrams: 08/03/18 13:08 08/03/18 13:08 Laboratory results interpreted by me: 08/03/18 13:08 Sodium 135.5 L Glucose 450 H* Discharge - Discharge Clinical Impression: Hyperglycemia, External hemorrhoid, bleeding Condition: Stable Disposition: HOME, SELF-CARE Instructions: Hemorrhoids ([facility]) Additional Instructions: Please return to the emergency department if you have any worsening, or concern of your symptoms. Please return to the emergency department if you develop chest pain, difficulty breathing, severe abdominal pain, or ongoing vomiting. Please follow-up with your primary care physician in 2-3 days and any other recommended physicians. If prescribed, take all medications as directed. If you have any questions or concerns do not hesitate to return the emergency department for evaluation. Prescriptions: Docusate Sodium [Colace] 100 mg PO DAILY #20 capsule Referrals: DONALD CAMARGO MD [Primary Care Provider] - Follow up in 3-5 days
[2018-08-03 16:04] VITALS: BP 131/78
== END 2018-08-03 16:04 | disposition home or self-care (01) ==
LOC: ER 12:37
DX: K64.4 Residual hemorrhoidal skin tags (principal); E11.65 Type 2 diabetes mellitus with hyperglycemia; I10 Essential (primary) hypertension; E78.00 Pure hypercholesterolemia, unspecified; I25.2 Old myocardial infarction
CPT/HCPCS: 99283; 36415; 82962; 85025; 85610; 80053; A9270; J1815

== ENCOUNTER 2018-08-24 06:31 | Emergency (ER) | payer MEDICARE, MEDICAID ==
[2018-08-24 06:42] VITALS: BP 163/73
[2018-08-24] MEDS ORDERED: DIPHENOXYLATE HCL/ATROP SULF 2.5-0.025 MG TABLET PO ONE (06:56)
--- NOTE | 2018-08-24 07:20 | ER Document Report ---
ED General - General Chief Complaint: Diarrhea Stated Complaint: POSSIBLE DIARRHEA Time Seen by Provider: 08/24/18 06:51 Primary Care Provider: DONALD CAMARGO MD [Primary Care Provider] - Follow up as needed TRAVEL OUTSIDE OF THE [place] IN LAST 30 DAYS: No - HPI Notes: Patient presents to the emergency department for evaluation of diarrhea. He states he works at approximately [employer] this morning and has had 7-8 episodes of watery diarrhea. He denies any blood, no melena. He denies any pain. He denies any abnormal foods or well water. He denies any medication changes. He has had no recent antibiotic therapy in the last 2 months. He is eating and drinking normally yesterday. Has a good appetite this morning. He did not take any medication for his diarrhea at home. - Related Data Allergies/Adverse Reactions: No Known Drug Allergies Allergy (Verified 08/03/18 12:37) Cheese Allergy (Uncoded 08/03/18 12:37) VINEGAR Allergy (Uncoded 08/03/18 12:37) Hives Past Medical History - General Information source: Patient - Social History Smoking Status: Former Smoker Family History: Arthritis, CAD, DM, Hyperlipidemia, Hypertension. denies: COPD, CVA, Malignancy, Thyroid Disfunction - Past Medical History Cardiac Medical History: Reports: Hx Heart Attack - x3, Hx Hypercholesterolemia, Hx Hypertension Pulmonary Medical History: Reports: Hx Asthma, Hx COPD, Hx Sleep Apnea Endocrine Medical History: Reports: Hx Diabetes Mellitus Type 2 Renal/ Medical History: Denies: Hx Peritoneal Dialysis GI Medical History: Reports: Hx Gastroesophageal Reflux Disease Musculoskeletal Medical History: Reports Hx Arthritis, Reports Hx Mus culoskeletal Deformity, Reports Hx Musculoskeletal Trauma Psychiatric Medical History: Reports: Hx Bipolar Disorder, Hx Depression, Hx Schizophrenia Traumatic Medical History: Reports: Hx Fractures Past Surgical History: Reports: Hx Cardiac Catheterization, Hx Cardiac Surgery - stent x1, Hx Orthopedic Surgery - Bilateral total knee, Hx Tonsillectomy - Immunizations Immunizations up to date: Yes Hx Diphtheria, Pertussis, Tetanus Vaccination: Yes - 2013 Hx Pneumococcal Vaccination: 07/28/13 Review of Systems - Review of Systems Constitutional: No symptoms reported EENT: No symptoms reported Cardiovascular: No symptoms reported Respiratory: No symptoms reported Gastrointestinal: See HPI Genitourinary: No symptoms reported Musculoskeletal: No symptoms reported Skin: No symptoms reported Neurological/Psychological: No symptoms reported Physical Exam - Vital signs Vitals: Temp Pulse Resp BP Pulse Ox 97.6 F 90 16 163/73 H 94 08/24/18 06:39 08/24/18 06:39 08/24/18 06:39 08/24/18 06:39 08/24/18 06:39 - Notes Notes: Vital signs reviewed, please refer to chart. Patient is normocephalic, atraumatic. Pupils equal round, reactive to light. Neck is supple without meningismus. Heart is regular rate and rhythm. Lungs are clear to auscultation bilaterally. Abdomen is soft, nontender, normoactive bowel sounds throughout. Extremities without cyanosis, clubbing, edema. Peripheral pulses are equal. Skin is warm and dry. Patient is awake, alert, neurological exam is nonfocal. Course - Re-evaluation Re-evalutation: 08/24/18 07:21 Patient is a 58-year-old male comes in for evaluation of diarrhea. He is only had diarrhea for several hours. He has no signs of dehydration on physical exam. He has a good appetite. He has no emesis. He has no risk factors for C. difficile colitis or other more potentially significant etiologies of diarrhea. His abdominal exam is entirely unremarkable. At this point we will go ahead and treat the patient symptomatically with Lomotil. He was given 1 dose here. He is to rest and stay well-hydrated. We will give him instructions on a diet to follow to diminish his diarrhea over the next 24 hours. He is to follow-up with primary care, return to the emergency department with worsening or new concerning symptoms. - Vital Signs Vital signs: Temp Pulse Resp BP Pulse Ox 97.6 F 90 16 163/73 H 94 08/24/18 06:39 08/24/18 06:39 08/24/18 06:39 08/24/18 06:39 08/24/18 06:39 Discharge - Discharge Clinical Impression: Diarrhea Condition: Stable Disposition: HOME, SELF-CARE Instructions: Diarrhea, Nonspecific ([facility]) Additional Instructions: Stay well-hydrated. Attempt to eat foods consistent with the BRAT diet, bananas, rice, applesauce, toast, in an effort to slow your diarrhea. Follow-up with your doctor next week. Return to the emergency department with worsening or new concerning symptoms. Referrals: DONALD CAMARGO MD [Primary Care Provider] - Follow up as needed
== END 2018-08-24 07:35 | disposition home or self-care (01) ==
LOC: ER 06:31
DX: R19.7 Diarrhea, unspecified (principal); Z87.891 Personal history of nicotine dependence; J44.9 Chronic obstructive pulmonary disease, unspecified
CPT/HCPCS: 99283; A9270; J3490

== ENCOUNTER 2019-03-02 09:44 | Emergency (ER) | payer MEDICARE, MEDICAID ==
[2019-03-02 09:59] VITALS: BP 187/90
--- NOTE | 2019-03-02 10:35 | ER Document Report ---
ED GI/ - General Chief Complaint: Penile Problem Stated Complaint: POST OP PROBLEM Time Seen by Provider: 03/02/19 10:15 Primary Care Provider: DONALD CAMARGO MD [Primary Care Provider] - Follow up as needed Notes: Patient is a 58-year-old male who presents to the emergency department for a postop complication. Patient reports that on Tuesday he did have a circumcision at [facility] in [place] by Dr. Baldwin. Patient reports that the surgery was unremarkable and prior to this morning he was healing well. Patient reports he was told to soak in a warm bath to help remove the dressing at the tip of the penis 3 days postop. Patient reports he did do this yesterday. Patient states this morning he woke up with a tightness to the right side of the tip of the penis. Patient reports he is concerned that there is an issue with the rubber band-like dressing. Patient reports he has not evaluated the area visually but with touch. Patient reports he has been urinating since developing the tightness sensation this morning. Patient denies testicular or penile swelling or pain. Patient denies drainage from the penis or testicles. Patient reports he did receive a circumcision due to frequent infections. TRAVEL OUTSIDE OF THE [place] IN LAST 30 DAYS: No - Related Data Allergies/Adverse Reactions: No Known Drug Allergies Allergy (Verified 08/03/18 12:37) Cheese Allergy (Uncoded 08/03/18 12:37) VINEGAR Allergy (Uncoded 08/03/18 12:37) Hives Past Medical History - General Information source: Patient - Social History Smoking Status: Unknown if Ever Smoked Lives with: Spouse/Significant other Family History: Arthritis, CAD, DM, Hyperlipidemia, Hypertension. denies: COPD, CVA, Malignancy, Thyroid Disfunction - Past Medical History Cardiac Medical History: Reports: Hx Heart Attack - x3, Hx Hypercholesterolemia, Hx Hypertension Pulmonary Medical History: Reports: Hx Asthma, Hx COPD, Hx Sleep Apnea EENT Medical History: Reports: None Neurological Medical History: Reports: None. Denies: Hx Parkinson's Disease Endocrine Medical History: Reports: Hx Diabetes Mellitus Type 2 Renal/ Medical History: Reports: None. Denies: Hx Peritoneal Dialysis GI Medical History: Reports: Hx Gastroesophageal Reflux Disease Musculoskeletal Medical History: Reports Hx Arthritis, Reports Hx Musculoskeletal Deformity, Reports Hx Musculoskeletal Trauma Skin Medical History: Reports None Psychiatric Medical History: Reports: Hx Bipolar Disorder, Hx Depression, Hx Schizophrenia Traumatic Medical History: Reports: Hx Fractures Infectious Medical History: Reports: None Past Surgical History: Reports: Hx Cardiac Catheterization, Hx Cardiac Surgery - stent x1, Hx Orthopedic Surgery - Bilateral total knee, Hx Tonsillectomy - Immunizations Immunizations up to date: Yes Hx Diphtheria, Pertussis, Tetanus Vaccination: Yes - 2013 Hx Pneumococcal Vaccination: 07/28/13 Review of Systems - Review of Systems Constitutional: No symptoms reported EENT: No symptoms reported Cardiovascular: No symptoms reported Respiratory: No symptoms reported Gastrointestinal: No symptoms reported Genitourinary: No symptoms reported Male Genitourinary: See HPI Musculoskeletal: No symptoms reported Skin: No symptoms reported Hematologic/Lymphatic: No symptoms reported Neurological/Psychological: No symptoms reported Physical Exam - Vital signs Vitals: Temp Pulse Resp BP Pulse Ox 98.3 F 80 24 H 187/90 H 97 03/02/19 09:56 03/02/19 09:56 03/02/19 09:56 03/02/19 09:56 03/02/19 09:56 Interpretation: Hypertensive - Notes Notes: GENERAL: Well-appearing, well-nourished and in no acute distress. HEAD: Atraumatic, normocephalic. EYES: Pupils equal round and reactive to light, extraocular movements intact, sclera anicteric, conjunctiva are normal. ENT: Nares patent, oropharynx clear without exudates. Moist mucous membranes. NECK: Normal range of motion, supple without lymphadenopathy or JVD. LUNGS: Breath sounds clear to auscultation bilaterally and equal. No wheezes rales or rhonchi. HEART: Regular rate and rhythm without murmurs, rubs or gallops. ABDOMEN: Soft, nontender, normoactive bowel sounds. No guarding, no rebound. No masses appreciated. BACK: No cervical, thoracic, lumbar midline tenderness. No saddle anesthesia, normal distal neurovascular exam. GENITOURINARY: Patient's penile exam generally unremarkable. The head of the penis was visualized without any drainage, erythema or edema. There is intact sutures noted in a circumferential manner around the base of the glans, there is a small amount of dried blood noted to have the sutures. There is no active bleeding. There is no edema, erythema or discoloration of the penis or testicles. EXTREMITIES: Normal range of motion, no pitting or edema. No clubbing or cyanosis. NEUROLOGICAL: Cranial nerves II through XII grossly intact. Normal speech, normal gait. PSYCH: Normal mood, normal affect. SKIN: Warm, Dry, normal turgor, no rashes or lesions noted. Course - Re-evaluation Re-evalutation: 03/02/19 10:34 Initial examination of the circumcision site was performed with Laura Waterman RN at the bedside. Patient was able to tolerate palpation and movement of the penis without significant pain. There was no obvious erythema, drainage, cyanosis, or edema. One of the sutures on the right side did have a crusting that appeared to be old blood. Patient pointed to this area of crusting where he was having the tightness feeling. Sutures are intact, patient states he was not aware that they did place sutures to the area. Patient reports he thought there was a rubber band like dressing to the tip of the penis. I did not visualize any type of dressing or a rubber band. There is no signs of constriction or ischemia. Patient reports he has been able to urinate since developing a feeling of tightness this morning. I did speak with [facility] in [place] to verify that the patient has an appointment this afternoon. She states the patient has an appointment at [address] Orlando. I did discuss this with the patient who states he will follow-up at 1 PM in the [place] office. I did inform the patient to seek immediate medical attention if he does develop swelling, drainage, bleeding, inability to urinate or any other concerning signs or symptoms that are new or worse. Patient verbalizes understanding. 10:59 Upon further questioning patient reports he did soak in a warm bath yesterday and that part of the dressing did come off of the tip of his penis. Patient states he was not aware that he had sutures around the penis and was concerned that part of the dressing was still intact. Once again I did not visualize any dressing. The sutures were all intact and in a surf circumferential manner around the penis without any significant drainage, erythema, skin discoloration or signs of cyanosis or ischemia. - Vital Signs Vital signs: Temp Pulse Resp BP Pulse Ox 98.3 F 80 24 H 187/90 H 97 03/02/19 09:56 03/02/19 09:56 03/02/19 09:56 03/02/19 09:56 03/02/19 09:56 Discharge - Discharge Clinical Impression: Post-operative complication Qualifiers: Surgical complication system/body Area: genitourinary Surgical complication type: unspecified Procedure type: genitourinary Qualified Code(s): N99.89 - Other postprocedural complications and disorders of genitourinary system Circumcision complication Qualifiers: Encounter type: initial encounter Qualified Code(s): T81.9XXA - Unspecified complication of procedure, initial encounter Condition: Stable Disposition: HOME, SELF-CARE Additional Instructions: Today you are seen in the emergency department for a post op complication after receiving a circumcision this past Tuesday. Your physical exam was reassuring as there is no sign of ischemia (decrease of blood flow to the penis or testicles), significant swelling, testicular swelling, or inability to urinate. I did speak with [facility] in [place] and they did verify that you have an appointment today at [address] Orlando. Please make sure you do go to [place] for your follow-up appointment at 1 PM. If you do develop any significant swelling, inability to urinate, discoloration of the penis or testicles over the next few hours before your appointment please seek medical attention in emergency department. [facility] [address] [place] [address] Your appointment is with Dr. Orlando. Please make sure you attend this follow up visit. Referrals: DONALD CAMARGO MD [Primary Care Provider] - Follow up as needed
== END 2019-03-02 10:59 | disposition home or self-care (01) ==
LOC: ER 09:44
DX: N99.89 Other postprocedural complications and disorders of genitourinary system (principal); T81.9XXA Unspecified complication of procedure, initial encounter; X58.XXXA Exposure to other specified factors, initial encounter; E78.00 Pure hypercholesterolemia, unspecified; I10 Essential (primary) hypertension; J44.9 Chronic obstructive pulmonary disease, unspecified; E11.9 Type 2 diabetes mellitus without complications; Z96.653 Presence of artificial knee joint, bilateral; I25.2 Old myocardial infarction
CPT/HCPCS: 99283

== ENCOUNTER → 2019-04-26 | Outpatient (CLI) | payer MEDICARE, MEDICAID ==
--- NOTE | 2019-04-26 16:24 | RADIOLOGY REPORT (SQ) ---
EXAM DESCRIPTION: CHEST 2 VIEWS COMPLETED DATE/TIME: 04/26/2019 3:40 pm REASON FOR STUDY: R05 COUGH COMPARISON: CT angio chest 03/09/2018 Two-view chest 11/23/2017 AP chest 10/31/2017 EXAM PARAMETERS: NUMBER OF VIEWS: two views TECHNIQUE: Digital Frontal and Lateral radiographic views of the chest acquired. RADIATION DOSE: NA LIMITATIONS: none FINDINGS: LUNGS AND PLEURA: No opacities, masses or pneumothorax. No pleural effusion. MEDIASTINUM AND HILAR STRUCTURES: No masses or contour abnormalities. HEART AND VASCULAR STRUCTURES: Heart normal size. No evidence for failure. BONES: No acute findings. HARDWARE: None in the chest. OTHER: No other significant finding. IMPRESSION: NO ACUTE RADIOGRAPHIC FINDING IN THE CHEST. TECHNICAL DOCUMENTATION: JOB ID: [id number] [employer]- All Rights Reserved Reading location - IP/workstation name: [email or web address]
== END ==
LOC: RAD 15:31
PROVIDERS: ATTEND Family Medicine
DX: R05 Cough (principal)
CPT/HCPCS: 71046

== ENCOUNTER → 2019-05-09 | Outpatient (CLI) | payer MEDICARE, MEDICAID ==
--- NOTE | 2019-05-09 12:18 | RADIOLOGY REPORT (SQ) ---
EXAM DESCRIPTION: U/S ABDOMEN LIMITED W/O DOP COMPLETED DATE/TIME: 05/09/2019 11:37 am REASON FOR STUDY: RUQ PAIN R10.11 RIGHT UPPER QUADRANT PAIN COMPARISON: Right upper quadrant ultrasound 03/10/2018 CT chest 03/09/2018 TECHNIQUE: Dynamic and static grayscale images acquired of the abdomen and recorded on PACS. Additio nal selected color Doppler and spectral images recorded. LIMITATIONS: None. FINDINGS: PANCREAS: Midline pancreas unremarkable LIVER: Mildly enlarged 21 cm, diffuse increased echogenicity of the liver from fatty infiltration or diffuse hepatocellular disease. No masses. No biliary ductal dilatation LIVER VASCULATURE: Normal directional flow of the main portal vein and hepatic veins. GALLBLADDER: No stones. Normal wall thickness. No pericholecystic fluid. 4 mm gallbladder wall polyp ULTRASOUND-DETECTED ALMANZAR'S SIGN: Negative. INTRAHEPATIC DUCTS AND COMMON DUCT: CBD and intrahepatic ducts normal caliber. No filling defects. D istal most common duct not well seen due to duodenum gas INFERIOR VENA CAVA: Normal flow. AORTA: No aneurysm. RIGHT KIDNEY: Normal size. Normal echogenicity. No solid or suspicious masses. No hydronephrosis. No calcifications. 14 mm right lower pole renal cortical cyst PERITONEAL AND RIGHT PLEURAL SPACE: No ascites or effusions. OTHER: No other significant findings. IMPRESSION: Echogenic liver from fatty infiltration. 4 mm gallbladder polyp. No gallstones, gallbladder wall thickening or pericholecystic fluid TECHNICAL DOCUMENTATION: JOB ID: [id number]- All Rights Reserved Reading location - IP/workstation name: [email or web address]
== END ==
LOC: RAD 10:35
PROVIDERS: ATTEND Family Medicine
DX: R10.11 Right upper quadrant pain (principal)
CPT/HCPCS: 76705

== ENCOUNTER 2019-08-21 22:16 | Emergency (ER) | payer MEDICARE, MEDICAID ==
[2019-08-21 23:05] LABS: ABSOLUTE BASOPHILS # (AUTO) 0.1 10^3/uL (0.0-0.2); ABSOLUTE LYMPHOCYTES (AUTO) 1.2 10^3/uL (0.5-4.7); ABSOLUTE MONOCYTES (AUTO) 0.6 10^3/uL (0.1-1.4); BASOPHILS % (AUTO) 0.6 % (0-2); EOSINOPHILS % (AUTO) 0.4 % (0-6); HEMATOCRIT 48.3 % (37.9-51.0); LYMPHOCYTES % (AUTO) 11.3 % (13-45); MEAN CORPUSCULAR HEMOGLOBIN 29.8 pg (27.0-33.4); MEAN CORPUSCULAR HGB CONC 35.2 g/dL (32.0-36.0); MEAN CORPUSCULAR VOLUME 85 fl (80-97); MONOCYTES % (AUTO) 5.5 % (3-13); PLATELET COUNT 228 10^3/uL (150-450); RED BLOOD COUNT 5.71 10^6/uL (4.35-5.55); RED CELL DISTRIBUTION WIDTH 13.1 % (11.5-14.0); SEGMENTED NEUTROPHILS % (AUTO) 82.2 % (42-78); TOTAL CELLS COUNTED % (AUTO) 100 %; WHITE BLOOD COUNT 10.9 10^3/uL (4.0-10.5)
--- NOTE | 2019-08-21 23:21 | RADIOLOGY REPORT (SQ) ---
EXAM DESCRIPTION: AP portable radiograph of the chest CLINICAL HISTORY: 59 years Male, SOB COMPARISON: Two views of the chest April 26, 2019 FINDINGS: Lungs: Lung volumes are slightly decreased. No focal consolidation. No pneumothorax or pleural effusion. Mediastinum: Cardiac and mediastinal silhouette are unchanged. Bones: Osseous structures are stable EKG leads overlie both sides of the chest and the mediastinum. IMPRESSION: No acute process. Minimal interval reduction in lung volumes.
[2019-08-21 23:25] LABS: ALBUMIN 4.1 g/dL (3.5-5.0); ALKALINE PHOSPHATASE 77 U/L (38-126); ANION GAP 10 (5-19); ASPARTATE AMINO TRANSFERASE 42 U/L (17-59); BILIRUBIN,DIRECT 0.3 mg/dL (0.0-0.4); BILIRUBIN,TOTAL 0.7 mg/dL (0.2-1.3); BLOOD UREA NITROGEN 10 mg/dL (7-20); CALCIUM 9.2 mg/dL (8.4-10.2); CARBON DIOXIDE 27 mmol/L (22-30); CHLORIDE 98 mmol/L (98-107); GLUCOSE 179 mg/dL (75-110); TOTAL PROTEIN 7.5 g/dL (6.3-8.2)
[2019-08-22] MEDS ORDERED: ACETAMINOPHEN 325 MG TABLET PO ONE (00:33)
[2019-08-22] MEDS ORDERED: NORMAL SALINE 1000 ML 1,000 ML IV ONE (00:34)
[2019-08-22 01:00] LABS: A TYPE INFLUENZA AG NEGATIVE (NEGATIVE); B INFLUENZA AG NEGATIVE (NEGATIVE)
--- NOTE | 2019-08-22 01:02 | ER Document Report ---
Entered by MARIXA TUTTLE SCRIBE 08/22/19 0013 Acting as scribe for:FABIOLA HANSEN DO ED General - General Chief Complaint: High Blood Pressure Stated Complaint: HEADACHE Time Seen by Provider: 08/22/19 00:01 Primary Care Provider: DONALD CAMARGO MD [Primary Care Provider] - Follow up as needed Information source: Patient Notes: This 59-year-old male with HTN, HCL and DM presents to the emergency department via EMS complaining of feeling sick since yesterday. Patient reports headache, chills, fever, dry cough and nausea. Patient denies vomiting. Patient believes that he got sick from his 's chicken salad that she made. He reports that she did not eat the chicken salad. Patient denies travel recently. Patient states that his cough was worse today and he has a fever at home at around 8 PM last night. TRAVEL OUTSIDE OF THE [place] IN LAST 30 DAYS: No - Related Data Allergies/Adverse Reactions: No Known Drug Allergies Allergy (Verified 08/03/18 12:37) Cheese Allergy (Uncoded 08/03/18 12:37) VINEGAR Allergy (Uncoded 08/03/18 12:37) Hives Home Medications: insulin and a bp medication that he hasn't taken in a month Past Medical History - General Information source: Patient - Social History Smoking Status: Never Smoker Cigarette use (# per day): No Chew tobacco use (# tins/day): No Family History: Arthritis, CAD, DM, Hyperlipidemia, Hypertension Patient has suicidal ideation: No Patient has homicidal ideation: No - Past Medical History Cardiac Medical History: Reports: Hx Coronary Artery Disease, Hx Heart Attack - x3, Hx Hypercholesterolemia, Hx Hypertension Pulmonary Medical History: Reports: Hx Asthma, Hx COPD, Hx Sleep Apnea Endocrine Medical History: Reports: Hx Diabetes Mellitus Type 2 GI Medical History: Reports: Hx Gastroesophageal Reflux Disease Musculoskeletal Medical History: Reports Hx Arthritis, Reports Hx Musculoskeletal Deformity, Reports Hx Musculoskeletal Trauma Psychiatric Medical History: Reports: Hx Bipolar Disorder, Hx Depression, Hx Schizophrenia Traumatic Medical History: Reports: Hx Fractures Past Surgical History: Reports: Hx Cardiac Catheterization, Hx Cardiac Surgery - stent x1, Hx Orthopedic Surgery - Bilateral total knee, Hx Tonsillectomy - Immunizations Immunizations up to date: Yes Hx Diphtheria, Pertussis, Tetanus Vaccination: Yes - 2013 Hx Pneumococcal Vaccination: 07/28/13 Review of Systems - Review of Systems Constitutional: See HPI, Chills, Fever EENT: No symptoms reported Cardiovascular: No symptoms reported Respiratory: See HPI, Cough. denies: Sputum Gastrointestinal: See HPI, Nausea. denies: Vomiting Genitourinary: No symptoms reported Male Genitourinary: No symptoms reported Musculoskeletal: No symptoms reported Skin: No symptoms reported Hematologic/Lymphatic: No symptoms reported Neurological/Psychological: See HPI, Headaches -: Yes All other systems reviewed and negative Physical Exam - Vital signs Vitals: Temp Pulse Resp BP Pulse Ox 99 F 86 19 169/94 H 97 08/21/19 22:26 08/21/19 22:26 08/21/19 22:08/21/19 22:08/21/19 22:26 - Notes Notes: Physical Exam: General: Alert, appears well. HEENT: Normocephalic. Atraumatic. PERRL. Extraocular movements intact. Dry mucous membranes. Erythema in pharynx with no exudate. Neck: Supple. Non-tender. Respiratory: No respiratory distress. Clear and equal breath sounds bilaterally. Cardiovascular: Regular rate and rhythm. Abdominal: Morbidly Obese. Non-tender. No distension. Normal Bowel Sounds. Back: No gross abnormalities. Extremities: Moves all four extremities. Upper extremities: Normal inspection. Normal ROM. Lower extremities: Normal inspection. No edema. Normal ROM. Neurological: Normal cognition. AAOx4. Normal speech. Psychological: Normal affect. Normal Mood. Skin: Warm. Dry. Normal color. Course - Re-evaluation Re-evalutation: 08/22/19 01:37 MDM 59 year old male with comorbidiites that include Dm, Htn, schizophrenia and KYLE is here with feeling bad for a day. Reportedly temp at home up to 104. Some loose stool yesterday. Cough today that is dry. No sick contacts. A bit sob. Workup here is unrevealing. Flu is - and will add covid test. Discussed with him self isolation and that health dept will follow up with him regarding results of covid test. - Vital Signs Vital signs: Temp Pulse Resp BP Pulse Ox 99 F 86 19 169/94 H 99 08/21/19 22:26 08/21/19 22:26 08/21/19 22:26 08/21/19 22:26 08/21/19 22:33 - Laboratory Result Diagrams: 08/21/19 22:45 08/21/19 22:45 Laboratory results interpreted by me: 08/21/19 08/21/19 22:45 22:45 WBC 10.9 H RBC 5.71 H Lymph % (Auto) 11.3 L Absolute Neuts (auto) 9.0 H Seg Neutrophils % 82.2 H Sodium 135.3 L Glucose 179 H - Diagnostic Test Radiology reviewed: Image reviewed, Reports reviewed - EKG Interpretation by Me EKG shows normal: Sinus rhythm Rate: Normal - NSR Nl [place] [address] elevation or depression my interpretation. Rhythm: NSR Discharge - Discharge Clinical Impression: Cough, Medical non-compliance Hypertension Qualifiers: Hypertension type: unspecified Qualified Code(s): I10 - Essential (primary) hypertension Type 2 diabetes mellitus Qualifiers: Diabetes mellitus middle or intermediate school principal insulin use: unspecified middle or intermediate school principal insulin use status Diabetes mellitus complication status: with other specified complication Qualified Code(s): E11.69 - Type 2 diabetes mellitus with other specified complication Condition: Good Disposition: HOME, SELF-CARE Instructions: Beta Blockers ([facility]), Family Physicians / Practices, Headache ([facility]), High Blood Pressure ([facility]) Additional Instructions: Remember to take your blood pressure medicines. Self quarantine until you hear results back regarding your viral test. You have been given your blood pressure medicines and should take them as directed. Prescriptions: Isosorbide Mononitrate [Imdur 30 mg Tablet.er] 30 mg PO DAILY #30 tab.er.24h Metoprolol Succinate [Toprol Xl 25 mg Tab.sr] 25 mg PO DAILY #30 tab.sr.24h Referrals: DONALD CAMARGO MD [Primary Care Provider] - Follow up as needed I personally performed the services described in the documentation, reviewed and edited the documentation which was dictated to the scribe in my presence, and it accurately records my words and actions.
[2019-08-22] MEDS ORDERED: IBUPROFEN 800 MG TABLET PO ONE (01:32)
[2019-08-22] MEDS ORDERED: ISOSORBIDE MONONITRATE 20 MG TABLET PO ONE (01:35)
[2019-08-22] MEDS ORDERED: ISOSORBIDE MONONITRATE 20 MG TABLET ONE (02:28)
[2019-08-22 03:13] VITALS: BP 146/77
--- NOTE | 2019-08-22 11:14 | EKG REPORT ---
SEVERITY:- BORDERLINE ECG - SINUS RHYTHM PROBABLE LEFT ATRIAL ABNORMALITY BORDERLINE T ABNORMALITIES, INFERIOR LEADS : Confirmed by: Sarai Castellanos MD 22-Aug-2019 11:13:33
== END 2019-08-22 03:13 | disposition home or self-care (01) ==
LOC: ER 22:16
DX: R51 Headache (principal); I10 Essential (primary) hypertension; E11.69 Type 2 diabetes mellitus with other specified complication; I25.10 Atherosclerotic heart disease of native coronary artery without angina pectoris; E78.00 Pure hypercholesterolemia, unspecified; E66.01 Morbid (severe) obesity due to excess calories; Z79.4 Long term (current) use of insulin; Z96.653 Presence of artificial knee joint, bilateral; Z91.19 Patient's noncompliance with other medical treatment and regimen; I25.2 Old myocardial infarction
CPT/HCPCS: 93005; 99284; 96360; 36415; 87040; 83605; 85025; 80053; 84484; 87804; 71045; 93010; A9270 ×3; J7030; 87635; J3490

== ENCOUNTER → 2019-09-05 | Outpatient (CLI) | payer MEDICARE, MEDICAID ==
[2019-09-05 14:32] LABS: APPEARANCE,URINE CLEAR; BILIRUBIN,URINE NEGATIVE (NEGATIVE); COLOR,URINE STRAW; GLUCOSE, URINE >=500 mg/dL (NEGATIVE); KETONES,URINE NEGATIVE (NEGATIVE); LEUKOCYTE ESTERASE,URINE NEGATIVE (NEGATIVE); NITRITE,URINE NEGATIVE (NEGATIVE); PROTEIN,URINE 30 mg/dL (NEGATIVE); URINE SPECIFIC GRAVITY 1.027; UROBILINOGEN,URINE NEGATIVE mg/dL (<2.0)
[2019-09-05 14:36] LABS: ABSOLUTE BASOPHILS # (AUTO) 0.1 10^3/uL (0.0-0.2); ABSOLUTE EOSINOPHILS # (AUTO) 0.1 10^3/uL (0.0-0.6); ABSOLUTE LYMPHOCYTES (AUTO) 1.6 10^3/uL (0.5-4.7); ABSOLUTE MONOCYTES (AUTO) 0.4 10^3/uL (0.1-1.4); ABSOLUTE NEUT (AUTO) 4.2 10^3/uL (1.7-8.2); BASOPHILS % (AUTO) 1.1 % (0-2); EOSINOPHILS % (AUTO) 0.8 % (0-6); HEMATOCRIT 45.2 % (37.9-51.0); HEMOGLOBIN 15.9 g/dL (13.5-17.0); LYMPHOCYTES % (AUTO) 26.1 % (13-45); MEAN CORPUSCULAR HEMOGLOBIN 29.9 pg (27.0-33.4); MEAN CORPUSCULAR HGB CONC 35.2 g/dL (32.0-36.0); MEAN CORPUSCULAR VOLUME 85 fl (80-97); MONOCYTES % (AUTO) 5.8 % (3-13); PLATELET COUNT 230 10^3/uL (150-450); RED BLOOD COUNT 5.31 10^6/uL (4.35-5.55); RED CELL DISTRIBUTION WIDTH 13.2 % (11.5-14.0); SEGMENTED NEUTROPHILS % (AUTO) 66.2 % (42-78); TOTAL CELLS COUNTED % (AUTO) 100 %; WHITE BLOOD COUNT 6.3 10^3/uL (4.0-10.5)
[2019-09-05 14:51] LABS: A TYPE INFLUENZA AG NEGATIVE (NEGATIVE); B INFLUENZA AG NEGATIVE (NEGATIVE)
[2019-09-05 14:58] LABS: ANION GAP 12 (5-19); BLOOD UREA NITROGEN 10 mg/dL (7-20); CARBON DIOXIDE 23 mmol/L (22-30); CHLORIDE 98 mmol/L (98-107); POTASSIUM 4.1 mmol/L (3.6-5.0)
[2019-09-05 15:19] LABS: GLUCOSE 456 mg/dL (75-110)
== END ==
LOC: OD 13:26
PROVIDERS: ATTEND Family Medicine
DX: J39.9 Disease of upper respiratory tract, unspecified (principal); R50.9 Fever, unspecified
CPT/HCPCS: 36415; 80048; 81001; 85025; 87804

== ENCOUNTER 2019-11-06 20:13 | Inpatient (IN) | payer MEDICARE, MEDICAID ==
--- NOTE | 2019-11-06 20:26 | ER Document Report ---
ED General - General Stated Complaint: POSS STROKE Time Seen by Provider: 11/06/19 20:20 Primary Care Provider: DONALD CAMARGO MD [Primary Care Provider] - Follow up as needed Information source: Emergency Med Personnel Notes: 59-year-old male arrives by EMS with history of hypertension noncompliance. Patient has all afternoon had severe cephalgia headache with blurry vision. He has never had a seizure in the past nor a stroke. Patient was answering questions with a several minute delay according to EMS. EMS [facility] Luigi asked him his Social Security number and the patient gave him his telephone number and after 2 minutes gave him the correct Social Security number. Patient's blood pressure was 187/98 upon arrival by EMS he was taken directly to CT scan where he was observed he was looking to the left and did answer my questions briefly before he began to have his grand mal seizure which lasted approximately 2 to 3 minutes. Began with a gaze forwards with a tonic- clonic of his left arm and fingers and this became generalized throughout his body. Patient has a endomorphic body habitus and weighs approximately 120 kg. Patient had suction prior to CT scanning. He was moved to CT scan by EMS myself and CT techs. Patient had a 75 saturation during his seizure and then 95% after his seizure on supplemental O2 nasal cannula. Patient was given 2.5 mg of Versed IV by [facility]. Patient came from home and EMS was called by family TRAVEL OUTSIDE OF THE [place] IN LAST 30 DAYS: No - HPI Onset: This afternoon Onset/Duration: Sudden, Persistent, Worse Quality of pain: Achy Severity: Mild Pain Level: 1 Associated symptoms: Headache, Other - Blurry vision Exacerbated by: Denies Relieved by: Denies Similar symptoms previously: No Recently seen / treated by doctor: No - Related Data Allergies/Adverse Reactions: No Known Drug Allergies Allergy (Verified 08/03/18 12:37) Cheese Allergy (Uncoded 08/03/18 12:37) VINEGAR Allergy (Uncoded 08/03/18 12:37) Hives Past Medical History - General Information source: Relative, Emergency Med Personnel - Social History Smoking Status: Unknown if Ever Smoked Cigarette use (# per day): No - unk Chew tobacco use (# tins/day): No - unk Smoking Education Provided: No - unk Frequency of alcohol use: None Drug Abuse: None Lives with: Family Family History: Reviewed & Not Pertinent, Arthritis, CAD, DM, Hyperlipidemia, Hypertension Patient has suicidal ideation: No Patient has homicidal ideation: No - Past Medical History Cardiac Medical History: Reports: Hx Coronary Artery Disease, Hx Heart Attack - x3, Hx Hypercholesterolemia, Hx Hypertension Pulmonary Medical History: Reports: Hx Asthma, Hx COPD, Hx Sleep Apnea Neurological Medical History: Denies: Hx Parkinson's Disease Endocrine Medical History: Reports: Hx Diabetes Mellitus Type 2 Renal/ Medical History: Denies: Hx Peritoneal Dialysis GI Medical History: Reports: Hx Gastroesophageal Reflux Disease Musculoskeletal Medical History: Reports Hx Arthritis, Reports Hx Musculoskeletal Deformity, Reports Hx Musculoskeletal Trauma Psychiatric Medical History: Reports: Hx Bipolar Disorder, Hx Depression, Hx Schizophrenia Traumatic Medical History: Reports: Hx Fractures Past Surgical History: Reports: Hx Cardiac Catheterization, Hx Cardiac Surgery - stent x1, Hx Orthopedic Surgery - Bilateral total knee, Hx Tonsillectomy - Immunizations Immunizations up to date: Yes Hx Diphtheria, Pertussis, Tetanus Vaccination: Yes - 2013 Hx Pneumococcal Vaccination: 07/28/13 Review of Systems - Review of Systems Constitutional: See HPI, Weakness EENT: No symptoms reported, Other - Patient had his head turned to the left and eyes were gazing to the left. Cardiovascular: No symptoms reported Respiratory: No symptoms reported Gastrointestinal: No symptoms reported Genitourinary: No symptoms reported Male Genitourinary: No symptoms reported Musculoskeletal: No symptoms reported Skin: No symptoms reported Hematologic/Lymphatic: No symptoms reported Neurological/Psychological: See HPI, Confusion, Weakness, Seizure, Headaches Physical Exam - Vital signs Vitals: Resp Pulse Ox 22 H 90 L 11/06/19 20:27 11/06/19 20:27 Interpretation: Hypertensive - General General appearance: Lethargic - HEENT Head: Normocephalic, Atraumatic Eyes: Normal Conjunctiva: Normal Cornea: Normal Extraocular movements intact: No - Patient focusing to the left Pupils: Pinpoint. No: PERRL Sinus: Normal Nasal: Normal Mouth/Lips: Normal Mucous membranes: Dry Pharynx: Normal Neck: Normal - Respiratory Respiratory status: No respiratory distress - Upon arrival however after seizure patient had sonorous respirations Chest status: Nontender Breath sounds: Normal Chest palpation: Normal - Cardiovascular Rhythm: Regular Heart sounds: Normal auscultation Murmur: No - Abdominal Inspection: Normal Distension: No distension Bowel sounds: Normal Tenderness: Nontender Organomegaly: No organomegaly - Rectal Hemorrhoids: Other - deferred - Genitourinary Scrotum: Normal - Back Back: Normal - Extremities General upper extremity: Normal inspection, Nontender, Normal color, Normal ROM, Normal temperature General lower extremity: Normal inspection, Nontender, Normal color, Normal ROM, Normal temperature, Normal weight bearing. No: Bobby's sign - Neurological Cognition: Confused Orientation: Disoriented to place, Disoriented to time, Disoriented to events [place] Coma Scale Eye Opening: To Voice [place] Coma Scale Verbal: Confused Speech: Normal Cranial nerves: Gaze palsy Cerebellar coordination: Normal Motor strength normal: LUE, RUE, LLE, RLE Course - Vital Signs Vital signs: Temp Pulse Resp BP Pulse Ox 98.4 F 83 22 H 145/76 H 99 11/06/19 20:36 11/06/19 23:20 11/06/19 23:20 11/06/19 23:20 11/06/19 23:20 - Laboratory Result Diagrams: 11/06/19 20:31 11/06/19 20:31 Laboratory results interpreted by me: 11/06/19 11/06/19 11/06/19 20:28 20:31 20:31 WBC 10.8 H Carbonic Acid ABG pCO2 ABG HCO3 ABG Total CO2 Sodium 134.4 L Chloride 96 L Carbon Dioxide 18 L Anion Gap 20 H Glucose 523 H* POC Glucose 505 H* Creatine Kinase 34 L Urine Protein Urine Glucose (UA) Urine Ascorbic Acid 11/06/19 11/06/19 11/06/19 21:38 22:22 22:35 WBC Carbonic Acid 1.37 H ABG pCO2 45.6 H ABG HCO3 27.1 H ABG Total CO2 28.5 H Sodium Chloride Carbon Dioxide Anion Gap Glucose POC Glucose 379 H 304 H Creatine Kinase Urine Protein Urine Glucose (UA) Urine Ascorbic Acid 11/06/19 11/07/19 22:37 00:13 WBC Carbonic Acid ABG pCO2 ABG HCO3 ABG Total CO2 Sodium Chloride Carbon Dioxide Anion Gap Glucose POC Glucose 351 H Creatine Kinase Urine Protein 30 H Urine Glucose (UA) >=500 H Urine Ascorbic Acid 20 H Critical Care Note - Critical Care Note Total time excluding time spent on procedures (mins): 90 Comments: I called Dr Camargo at 00 20 and he returned call immediately after he was called by the still operator brandy Dina. Dr. Camargo advised CTA of head and neck to rule out CVA and he will admit to IMCU Discharge - Discharge Clinical Impression: Seizure, Hyperglycemia, question of cva Condition: Fair Disposition: ADMITTED INPATIENT Admitting Provider: Ian Unit Admitted: IMCU Referrals: DONALD CAMARGO MD [Primary Care Provider] - Follow up as needed
[2019-11-06] MEDS ORDERED: INSULIN REG, HUMAN 100 UNIT/ML 3 ML VIAL (PYX) IV ONE ×2 (20:38→20:39)
[2019-11-06] MEDS ORDERED: LEVETIRACETAM 1000 MG/NACL-ISO 1,000 MG/100 ML RTUPB IV ONE (20:41)
[2019-11-06 20:44] LABS: INTERNATIONAL RATION (INR) 1.03; PROTHROMBIN TIME 13.5 SEC (11.4-15.4)
[2019-11-06 20:45] LABS: PARTIAL THROMBOPLASTIN TIME 28.2 SEC (23.5-35.8)
--- NOTE | 2019-11-06 20:46 | RADIOLOGY REPORT (SQ) ---
INDICATION: s/s symptoms. Left-sided neurologic deficit COMPARISON: October 02, 2015 CORRELATION: None TECHNIQUE: Noncontrast spiral axial CT images were obtained from the skull base to vertex. This exam was performed according to our departmental dose-optimization program, which includes automated exposure control, adjustment of the mA and/or kV according to patient size and/or use of iterative reconstruction techniques. FINDINGS: There is no evidence of acute intracranial hemorrhage, midline shift, mass effect or mass lesion. Chang-white differentiation is normal. There is no evidence of acute large territory infarct. Ventricles and extracerebral spaces are within normal limits, for age. Mild vascular calcification The visualized paranasal sinuses are grossly clear. The orbits and eyeballs are unremarkable. The mastoid air cells are clear. Skull base and calvarium appear intact. IMPRESSION: No acute intracranial process is identified. No adverse change from prior. The cause of the patient's neurologic deficit is not identified on this examination.
--- NOTE | 2019-11-06 20:47 | RADIOLOGY REPORT (SQ) ---
CLINICAL INDICATION: s/s symptoms. Neurologic deficit TECHNIQUE: A single portable AP view was obtained of the chest at 2034 hours. COMPARISON: August 21, 2019. FINDINGS: The cardiac mediastinal silhouette silhouette is prominent but similar to prior when accounting for rotation on current examination. The lungs demonstrate a new left pleural effusion/reaction with adjacent airspace disease likely compressive atelectasis. The right lung is grossly clear. No pneumothorax. The visualized bones are unremarkable. IMPRESSION: New left basilar airspace and pleural disease..
[2019-11-06 20:51] LABS: ABSOLUTE BASOPHILS # (AUTO) 0.1 10^3/uL (0.0-0.2); ABSOLUTE EOSINOPHILS # (AUTO) 0.1 10^3/uL (0.0-0.6); ABSOLUTE LYMPHOCYTES (AUTO) 3.5 10^3/uL (0.5-4.7); ABSOLUTE MONOCYTES (AUTO) 0.9 10^3/uL (0.1-1.4); ABSOLUTE NEUT (AUTO) 6.3 10^3/uL (1.7-8.2); BASOPHILS % (AUTO) 0.6 % (0-2); EOSINOPHILS % (AUTO) 0.9 % (0-6); HEMATOCRIT 48.3 % (37.9-51.0); HEMOGLOBIN 16.2 g/dL (13.5-17.0); LYMPHOCYTES % (AUTO) 32.1 % (13-45); MEAN CORPUSCULAR HEMOGLOBIN 29.8 pg (27.0-33.4); MEAN CORPUSCULAR HGB CONC 33.4 g/dL (32.0-36.0); MEAN CORPUSCULAR VOLUME 89 fl (80-97); MONOCYTES % (AUTO) 8.1 % (3-13); PLATELET COUNT 235 10^3/uL (150-450); RED BLOOD COUNT 5.43 10^6/uL (4.35-5.55); RED CELL DISTRIBUTION WIDTH 13.1 % (11.5-14.0); SEGMENTED NEUTROPHILS % (AUTO) 58.3 % (42-78); TOTAL CELLS COUNTED % (AUTO) 100 %; WHITE BLOOD COUNT 10.8 10^3/uL (4.0-10.5)
[2019-11-06 21:13] LABS: ALBUMIN 4.2 g/dL (3.5-5.0); ALKALINE PHOSPHATASE 118 U/L (38-126); ASPARTATE AMINO TRANSFERASE 26 U/L (17-59); BILIRUBIN,TOTAL 0.5 mg/dL (0.2-1.3); BLOOD UREA NITROGEN 13 mg/dL (7-20); CALCIUM 9.5 mg/dL (8.4-10.2); CREATINE KINASE 34 U/L (55-170); POTASSIUM 4.1 mmol/L (3.6-5.0); TOTAL PROTEIN 6.9 g/dL (6.3-8.2)
[2019-11-06 21:24] LABS: CREATINE KINASE MB 0.31 ng/mL (<4.55); TROPONIN I 0.023 ng/mL
[2019-11-06] MEDS ORDERED: CEFTRIAXONE INJ 1000 MG VIAL IV ONE (21:25)
[2019-11-06 21:26] LABS: CHLORIDE 96 mmol/L (98-107)
[2019-11-06 21:27] LABS: ANION GAP 20 (5-19); CARBON DIOXIDE 18 mmol/L (22-30)
[2019-11-06 21:30] LABS: GLUCOSE 523 mg/dL (75-110)
[2019-11-06 22:58] LABS: APPEARANCE,URINE CLEAR; BILIRUBIN,URINE NEGATIVE (NEGATIVE); COLOR,URINE STRAW; GLUCOSE, URINE >=500 mg/dL (NEGATIVE); KETONES,URINE NEGATIVE (NEGATIVE); PROTEIN,URINE 30 mg/dL (NEGATIVE); URINE SPECIFIC GRAVITY 1.024; UROBILINOGEN,URINE NEGATIVE mg/dL (<2.0)
[2019-11-06 23:02] LABS: ARTERIAL BLOOD BASE EXCESS 1.6 mmol/L; ARTERIAL BLOOD FIO2 4L; ARTERIAL BLOOD H2CO3 1.37 mmol/L (1.05-1.35); ARTERIAL BLOOD HCO3 27.1 mmol/L (20-24); ARTERIAL BLOOD PCO2 45.6 mmHg (35-45); ARTERIAL BLOOD PH 7.39 (7.35-7.45); ARTERIAL BLOOD PO2 82.4 mmHg (80-100); ARTERIAL BLOOD TOTAL CO2 28.5 mmol/L (23-27)
[2019-11-07] MEDS ORDERED: ACETAMINOPHEN 325 MG TABLET PO PRN (00:58)
[2019-11-07] MEDS ORDERED: NORMAL SALINE 1000 ML 1,000 ML IV PRN (00:58)
[2019-11-07] MEDS ORDERED: DEXTROSE 40% GEL 15 GM TUBE PO PRN ×4 (01:01→08:44)
[2019-11-07] MEDS ORDERED: DEXTROSE 50%-WATER 25 GM/50 ML DISP.SYRIN IV PRN ×4 (01:01→08:44)
[2019-11-07] MEDS ORDERED: GLUCAGON,HUMAN RECOMB 1 MG INJ IM PRN ×2 (01:01→08:44)
[2019-11-07 02:02] LABS: CREATINE KINASE MB 0.43 ng/mL (<4.55)
[2019-11-07 02:10] LABS: TROPONIN I 0.035 ng/mL
--- NOTE | 2019-11-07 02:41 | RADIOLOGY REPORT (SQ) ---
COMPLETED DATE/TME: 11/07/2019 00:36 EXAM: CTA NECK WITH CONTRAST EXAM: CTA BRAIN WITH CONTRAST DATE: 11/07/2019 12:36 AM CDT INDICATION: Stroke TECHNIQUE Rapid acquisition spiral images were obtained following the intravenous administration of contrast. 3D MIP reconstructions were performed.. DLP: 720 mGy-cm This exam was performed according to our departmental dose-optimization program, which includes automated exposure control, adjustment of the mA and/or kV according to patient size and/or use of iterative reconstruction technique. CTA NECK: Aortic arch: Incidental note is made of the left vertebral artery arising directly from the aortic arch. No atherosclerosis. No great vessel origin stenosis. Left carotid system: The common carotid artery, carotid bifurcation , and internal carotid artery have normal course, caliber, and contour without atherosclerosis or stenosis by NASCET criteria Right carotid system: The common carotid artery, carotid bifurcation , and internal carotid artery have normal course, caliber, and contour without significant stenosis by NASCET criteria Vertebral arteries: Right dominant system. Normal course, caliber, and contour without atherosclerosis or stenosis>] Nonvascular tissues: No mucosal contour abnormality, abnormal enhancement, or asymmetry. Normal salivary and thyroid glands. No lymphadenopathy. CTA BRAIN: Distal Internal carotid arteries: Normal course, caliber, and contour without significant stenosis [place] of [place]: Standard configuration without proximal stenosis or aneurysm. Anterior cerebral arteries: No focal stenosis or aneurysm. Middle cerebral arteries: No focal stenosis or aneurysm Posterior cerebral arteries: No focal stenosis or aneurysm. Vertebrobasilar circulation: The intradural vertebral arteries, basilar artery, and all cerebellar branches are patent without focal stenosis or aneurysm. Veins: The major dural venous sinus, cortical and deep cerebral veins are patent. Paranasal sinuses: Clear IMPRESSION: 1. No major branch occlusion, flow limiting stenosis, or aneurysm is identified intracranially. 2. No cervical carotid or vertebral stenosis All quantitative and qualitative assessments of carotid bifurcation and proximal internal carotid artery stenosis are made at referencing the distal internal carotid artery. TECHNICAL DOCUMENTATION: Quality ID # [id number]: Final reports with documentation of one or more dose reduction techniques (e.g., Automated exposure control, adjustment of the mA and/or kV according to patient size, use of iterative reconstruction technique) copyright 2011 [employer]- All Rights Reserved
[2019-11-07 06:36] LABS: CREATINE KINASE MB 0.84 ng/mL (<4.55)
[2019-11-07 06:46] LABS: TROPONIN I 0.148 ng/mL
--- NOTE | 2019-11-07 08:40 | PDOC H&P ---
History of Present Illness Admission Date/PCP: 11/07/19 01:09 DONALD CAMARGO MD Patient complains of: Blurry vision and new onset of seizures History of Present Illness: YURY BAZAN is a 59 year old male This is a 59-year-old male with a history of the type 2 diabetes mostly insulin resistance noncompliance history of the coronary artery disease status post stent placement history of the hypertensions hyperlipidemia multiple other comorbidity came to the emergency department by EMSWith the complaining of a headache and blurry vision Patient's not his yesterday's was complaining of some mild headache and patient's blurry vision patient is to drink some Mountain Dew yesterday before this episode happens patient's blood sugar was in the 500 rangeAnd patient was confused In the emergency department with a EMS patient also have a tonic-clonic seizures activity patient O2 sat dropped to up to 75%'s but back to the normal patient initial CT head was negative patient was giving the Keppra and insulin drip in the beginning ER physicians call me to admit the patient is because of the new onset of the seizures with questionable CVA and hyperglycemia Patient's CTA of the head and neck was negative for any clots When I saw the patient in the floor alert awake oriented x4 denied any headache no chest pain no short of breath Patient initial troponin was negative subsequent troponin goes up patient have a coronary artery disease status post stent placement at [place] Patient having no weakness no blurry vision today Patient at this point we order the MRI of the head and consult the cardiology put the patient on aspirin Plavix and statin Past Medical History Cardiac Medical History: Reports: Coronary Artery Disease, Myocardial Infarction - x3, Hyperlipidema, Hypertension Pulmonary Medical History: Reports: Asthma, Chronic Obstructive Pulmonary Disease (COPD), Sleep Apnea Endocrine Medical History: Reports: Diabetes Mellitus Type 2 GI Medical History: Reports: Gastroesophageal Reflux Disease Musculoskeltal Medical History: Reports: Arthritis Psychiatric Medical History: Reports: Bipolar Disorder, Depression Hematology: Denies: Anemia, Bleeding Tendencies Past Surgical History Past Surgical History: Reports: Cardiac Catheterization, Coronary Stent, Orthopedic Surgery - Bilateral total knee, Tonsillectomy Social History Information Source: Patient Lives with: Family Smoking Status: Former Smoker Electronic Cigarette use?: No Frequency of Alcohol Use: None Hx Recreational Drug Use: No Hx Prescription Drug Abuse: No Family History Family History: Reviewed & Not Pertinent, Arthritis, CAD, DM, Hyperlipidemia, Hypertension Parental Family History Reviewed: Yes Children Family History Reviewed: Yes Sibling(s) Family History Reviewed.: Yes Medication/Allergy Home Medications: Aripiprazole [Abilify 15 mg Tablet] 15 mg PO Q12 03/09/18 Atorvastatin Calcium [Lipitor 20 mg Tablet] 20 mg PO QHS 03/09/18 Benztropine Mesylate [Cogentin 1 mg Tablet] 1 mg PO BID 03/09/18 Diazepam [Valium 5 mg Tablet] 5 mg PO DAILY 03/09/18 Famotidine [Pepcid 20 mg Tablet] 20 mg PO BID 03/09/18 Fluticasone Propionate [Flonase Nasal [place] 50 Mcg/[place] 16 gm] 1 spray NASL SARAH LY 03/09/18 Glipizide [Glucotrol 10 mg Tablet] 10 mg PO DAILY 03/09/18 Insulin Aspart [Novolog Flexpen] 0 units SQ .SLIDING SCALE 03/09/18 Insulin Detemir [Levemir Flextouch] 55 units SQ DAILY 03/09/18 Isosorbide Mononitrate [Isosorbide Mononitrate ER] 30 mg PO DAILY 03/09/18 Latanoprost [Xalatan 0.005% Oph Soln 2.5 ml] 1 drop OU QHS 03/09/18 Levocetirizine Dihydrochloride [Xyzal] 5 mg PO DAILY 03/09/18 Metoprolol Succinate [Toprol Xl 25 mg Tab.sr] 25 mg PO Q12 03/09/18 Montelukast Sodium [Singulair 10 mg Tablet] 10 mg PO QPM 03/09/18 Omeprazole 20 mg PO BID 03/09/18 Paroxetine HCl [Paxil] 40 mg PO DAILY 03/09/18 Tamsulosin HCl [Flomax 0.4 mg Cap.sr] 0.4 mg PO QPM 03/09/18 Trazodone HCl [Desyrel] 100 mg PO BID 03/09/18 Ranolazine [Ranexa 500 mg Tab.sr] 500 mg PO Q12 #60 tab.sr.12h 03/10/18 Ketoconazole 30 gm TP DAILY #1 cream..g. 07/21/18 Docusate Sodium [Colace] 100 mg PO DAILY #20 capsule 08/03/18 Isosorbide Mononitrate [Imdur 30 mg Tablet.er] 30 mg PO DAILY #30 tab.er.24h 08/22/19 Metoprolol Succinate [Toprol Xl 25 mg Tab.sr] 25 mg PO DAILY #30 tab.sr.24h 08/22/19 Allergies/Adverse Reactions: No Known Drug Allergies Allergy (Verified 08/03/18 12:37) Cheese Allergy (Uncoded 08/03/18 12:37) VINEGAR Allergy (Uncoded 08/03/18 12:37) Hives Review of Systems Constitutional: ABSENT: chills, fever(s), headache(s), weight gain, weight loss Eyes: ABSENT: visual disturbances Ears: ABSENT: hearing changes Cardiovascular: ABSENT: chest pain, dyspnea on exertion, edema, orthropnea, palpitations Respiratory: ABSENT: cough, hemoptysis Gastrointestinal: ABSENT: abdominal pain, constipation, diarrhea, hematemesis, hematochezia, nausea, vomiting Genitourinary: ABSENT: dysuria, hematuria Musculoskeletal: ABSENT: joint swelling Integumentary: ABSENT: rash, wounds Neurological: ABSENT: abnormal gait, abnormal speech, confusion, dizziness, focal weakness, syncope Psychiatric: ABSENT: anxiety, depression, homidical ideation, suicidal ideation Endocrine: ABSENT: cold intolerance, heat intolerance, menstrual abnormalities, polydipsia, polyuria Hematologic/Lymphatic: ABSENT: easy bleeding, easy bruising, lymphadenopathy Physical Exam Vital Signs: Temp Pulse Resp BP Pulse Ox 97.7 F 74 20 172/79 H 97 11/07/19 03:16 11/07/19 07:00 11/07/19 04:00 11/07/19 04:00 11/07/19 04:00 Intake & Output 11/06/19 11/07/19 11/08/19 06:59 06:59 06:59 Intake Total 340 Output Total 600 Balance -260 Weight 118.7 kg General appearance: PRESENT: no acute distress, well-developed, well-nourished Head exam: PRESENT: atraumatic, normocephalic Eye exam: PRESENT: conjunctiva pink, EOMI, PERRLA. ABSENT: scleral icterus Ear exam: PRESENT: normal external ear exam Mouth exam: PRESENT: moist, tongue midline Neck exam: PRESENT: full ROM. ABSENT: carotid bruit, JVD, lymphadenopathy, thyromegaly Respiratory exam: PRESENT: clear to auscultation tricia Cardiovascular exam: PRESENT: RRR. ABSENT: diastolic murmur, rubs, systolic murmur Pulses: PRESENT: normal dorsalis pedis pul, +2 pedal pulses bilateral Vascular exam: PRESENT: normal capillary refill GI/Abdominal exam: PRESENT: normal bowel sounds, soft. ABSENT: distended, guarding, mass, organolmegaly, rebound, tenderness Rectal exam: PRESENT: deferred Neurological exam: PRESENT: alert, awake, oriented to person, oriented to place, oriented to time, oriented to situation, reflexes normal, CN II-XII grossly inta ct. ABSENT: motor sensory deficit Psychiatric exam: PRESENT: appropriate affect, normal mood. ABSENT: homicidal ideation, suicidal ideation Skin exam: PRESENT: dry, intact, warm. ABSENT: cyanosis, rash Results Laboratory Results: 11/06/19 20:31 11/06/19 20:31 11/06/19 11/06/19 11/06/19 20:31 20:31 20:31 WBC 10.8 H RBC 5.43 Hgb 16.2 Hct 48.3 MCV 89 MCH 29.8 MCHC 33.4 RDW 13.1 Plt Count 235 Seg Neutrophils % 58.3 Carbonic Acid HCO3/H2CO3 Ratio ABG pH ABG pCO2 ABG pO2 ABG HCO3 ABG O2 Saturation ABG Base Excess FiO2 Sodium 134.4 L Potassium 4.1 Chloride 96 L Carbon Dioxide 18 L Anion Gap 20 H BUN 13 Creatinine 0.86 Est GFR ( Amer) > 60 Glucose 523 H* Calcium 9.5 Total Bilirubin 0.5 AST 26 Alkaline Phosphatase 118 Total Protein 6.9 Albumin 4.2 Lipase 204.1 Urine Color Urine Appearance Urine pH Ur Specific [place] Urine Protein Urine Glucose (UA) Urine Ketones Urine Blood Urine RBC (Auto) 11/06/19 11/06/19 11/06/19 21:49 22:22 22:37 WBC RBC Hgb Hct MCV MCH MCHC RDW Plt Count Seg Neutrophils % Carbonic Acid Cancelled 1.37 H HCO3/H2CO3 Ratio Cancelled 19:1 ABG pH Cancelled 7.39 ABG pCO2 Cancelled 45.6 H ABG pO2 Cancelled 82.4 ABG HCO3 Cancelled 27.1 H ABG O2 Saturation Cancelled 96.0 ABG Base Excess Cancelled 1.6 FiO2 Cancelled 4L Sodium Potassium Chloride Carbon Dioxide Anion Gap BUN Creatinine Est GFR ( Amer) Glucose Calcium Total Bilirubin AST Alkaline Phosphatase Total Protein Albumin Lipase Urine Color STRAW Urine Appearance CLEAR Urine pH 7.0 Ur Specific [place] 1.024 Urine Protein 30 H Urine Glucose (UA) >=500 H Urine Ketones NEGATIVE Urine Blood NEGATIVE Urine RBC (Auto) 1 11/06/19 11/06/19 11/06/19 20:31 20:31 22:44 Creatine Kinase 34 L 38 L CK-MB (CK-2) 0.31 Troponin I 0.023 11/06/19 11/07/19 11/07/19 22:44 05:05 05:05 Creatine Kinase 68 CK-MB (CK-2) 0.43 0.84 Troponin I 0.035 0.148 Impressions: Chest X-Ray 11/06/19 20:14 IMPRESSION: New left basilar airspace and pleural disease.. Head CT 11/06/19 20:14 IMPRESSION: No acute intracranial process is identified. No adverse change from prior. The cause of the patient's neurologic deficit is not identified on this examination. Head CTA 11/07/19 00:36 IMPRESSION: 1. No major branch occlusion, flow limiting stenosis, or aneurysm is identified intracranially. 2. No cervical carotid or vertebral stenosis All quantitative and qualitative assessments of carotid bifurcation and proximal internal carotid artery stenosis are made at referencing the distal internal carotid artery. TECHNICAL DOCUMENTATION: Quality ID # 436: Final reports with documentation of one or more dose reduction techniques (e.g., Automated exposure control, adjustment of the mA and/or kV according to patient size, use of iterative reconstruction technique) copyright 2010 [employer]- All Rights Reserved Neck CTA 11/07/19 00:36 IMPRESSION: 1. No major branch occlusion, flow limiting stenosis, or aneurysm is identified intracranially. 2. No cervical carotid or vertebral stenosis All quantitative and qualitative assessments of carotid bifurcation and proximal internal carotid artery stenosis are made at referencing the distal internal carotid artery. TECHNICAL DOCUMENTATION: Quality ID # 436: Final reports with documentation of one or more dose reduction techniques (e.g., Automated exposure control, adjustment of the mA and/or kV according to patient size, use of iterative reconstruction technique) copyright 2011 [employer]- All Rights Reserved Assessment & Plan - Diagnosis (1) Seizure Is this a current diagnosis for this admission?: Yes Plan: This is new onset of the seizures by witness of the ER we will get the MRI of the head get the EEG and also start the patient on a seizures medications Most likely underlying uncontrolled blood sugar with hyperglycemia but will rule out the other etiology Seizures precautions (2) Elevated troponin Is this a current diagnosis for this admission?: Yes Plan: We rule out acute coronary syndromes consult the cardiology continues the aspirin Plavix and Lovenox (3) Hyperglycemia Is this a current diagnosis for this admission?: Yes Plan: Patient is very noncompliance require a high dose of insulin continues a sliding scales with the current insulin discussed with the nursing staff in [facility] the dietary consult (4) Coronary artery disease Qualifiers: Coronary Disease-Associated Artery/Lesion type: [place] artery [place] vs. transplanted heart: [place] heart Associated angina: without angina Qualified Code(s): I25.10 - Atherosclerotic heart disease of [place] coronary artery w ithout angina pectoris Is this a current diagnosis for this admission?: Yes Plan: Will rule out acute coronary syndrome with the setting of the stent placements (5) Gastroesophageal reflux disease Qualifiers: Esophagitis presence: without esophagitis Is this a current diagnosis for this admission?: Yes Plan: Continues the Pepcid 20 mg p.o. twice a day (6) Hyperlipidemia Qualifiers: Hyperlipidemia type: unspecified Is this a current diagnosis for this admission?: Yes (7) Hypertension Qualifiers: Hypertension type: essential hypertension Is this a current diagnosis for this admission?: Yes Plan: Once we rule out the acute strokes will resume the patient's medications for the blood pressures (8) Noncompliance Is this a current diagnosis for this admission?: Yes (9) Sleep apnea Qualifiers: Sleep apnea type: unspecified type Is this a current diagnosis for this admission?: Yes Plan: Continues uses CPAP (10) Bipolar disorder Qualifiers: Active/Remission status: currently active Is this a current diagnosis for this admission?: Yes Plan: Continues to current psych medications follow-up with the psych (11) Pneumonia Qualifiers: Pneumonia type: due to unspecified organism Lung location: unspecified part of lung Is this a current diagnosis for this admission?: Yes Plan: Could be a possible aspirations due to the seizures activities will cover with the IV Rocephin - Time Time Spent: 50 to 70 Minutes Critical Time spent with patient: 25-34 minutes Medications reviewed and adjusted accordingly: Yes Anticipated discharge: Home Within: Other - Inpatient Certification Based on my medical assessment, after consideration of the patient's comorbidities, presenting symptoms, or acuity I expect that the services needed warrant INPATIENT care.: Yes I certify that my determination is in accordance with my understanding of Medicare's requirements for reasonable and necessary INPATIENT services [42 CFR 412.3e].: Yes Medical Necessity: Significant Comorbidiites Make Outpatient Treatment Too Risky, Need Close Monitoring Due to Risk of Patient Decompensation, Need For IV Fluids, Need for IV Antibiotics Post Hospital Care: D/C Application Trainer Documentation - Plan Summary Plan Summary: Admit the patient's in IMCU consult the cardiology get the MRI of the head and EEG seizures precautions
[2019-11-07] MEDS ORDERED: IPRATROPIUM/ALBUTEROL 0.5-2.5 MG/3 ML AMPUL NEB PRN (08:47)
[2019-11-07] MEDS ORDERED: ISOSORBIDE MONONITRATE 60 MG TAB.ER.24H PO SCH (10:00)
[2019-11-07] MEDS: LEVETIRACETAM 1000 MG/NACL-ISO 1,000 MG/100 ML RTUPB IV SCH ×2 (10:16→22:16)
[2019-11-07] MEDS: METOPROLOL SUCCINATE 25 MG TAB.SR.24H PO SCH ×2 (10:16→22:00)
[2019-11-07] MEDS: FAMOTIDINE 20 MG TABLET PO SCH ×2 (10:16→22:17)
[2019-11-07] MEDS: ENOXAPARIN SODIUM INJ 40 MG/0.4 ML DISP.SYRIN SUBCUT SCH (10:16)
[2019-11-07] MEDS: CLOPIDOGREL BISULFATE 75 MG TABLET PO SCH (10:16)
[2019-11-07] MEDS: ASPIRIN 81 MG TABLET, ENT COATED PO SCH (10:17)
[2019-11-07] MEDS: INSULIN REG, HUMAN 100 UNIT/ML 3 ML VIAL (PYX) SUBCUT SCH ×4 (10:17→22:19)
[2019-11-07 11:38] LABS: CREATINE KINASE MB 0.77 ng/mL (<4.55)
[2019-11-07 11:44] LABS: TROPONIN I 0.127 ng/mL
[2019-11-07] MEDS: INSULIN GLARGINE,HUM.REC.ANLOG 1,000 UNIT/10 ML VIAL SUBCUT SCH ×2 (11:57→22:17)
--- NOTE | 2019-11-07 16:15 | NEURO WORKBENCH EEG REPORT ---
EEG Report Patient: Schuyler Salmon ID: [id number] Referring Doctor: Bridger Sosa Date: 11/07/2019 Reason for study: Evaluate Epileptiform activity Medications: Aspirin, Lipitor, Rocephin, Plavix, Lovenox, Insulin, Keppra, Toprol XL History: This is a 59 year old male with a history of HTN, Hypercholesterolemia, prior [place] x3, COPD, Asthma, KYLE, GERD, DMII, Schizophrenia, Bipolar Disorder, and depression. The patient had headache and blurred vision on 11/06/19 and nursing notes in the ER comment upon a seizure lasting about 2.5 minutes. This EEG was requested for evaluation of epileptiform activity. EEG Interpretation: This EEG was recorded during wakefulness, stage I, and stage II sleep. The awake EEG is characterized by a well organized background with a well developed and reactive posterior dominant rhythm (PDR) of approximately 10-11 Hz. The remainder of the background consisted of low amplitude frontally predominant beta activity (and frequent frontally predominant myogenic artifact). The EEG is symmetric in amplitudes and frequencies. Photic stimulation resulted in photic driving, and there was no epileptiform activity elicited with photic stimulation. Stage I sleep was achieved and characterized by slow rolling eye movements, slowing of the background rhythm by 1-2 Hz, and vertex waves. Stage II sleep was achieved and symmetric sleep spindles were noted. There were no epileptiform abnormalities (no sharp waves and no spikes). There were no seizures. The EKG showed a regular rhythm with typically 65-75 beats per minute. EEG Impression: This EEG is within normal limits for age. There was no epileptiform activity or seizures. A single normal routine EEG does not rule out the possibility of epilepsy. If there is high clinical suspicion for epilepsy, then additional EEG evaluation should be considered with a sleep-deprived EEG or more prolonged EEG monitoring. INTERPRETING NEUROLOGIST: Mau Boone MD Board certified by the [place] [employer] in Neurology, Clinical Neurophysiology, and Sleep Medicine [facility]
--- NOTE | 2019-11-07 20:53 | PDOC CONSULTATION ---
Consultation-Blank Consultation: CARDIOLOGY CONSULTATION by Dr. Sarai Castellanos on 11/07/2019. Patient seen at 8:30 AM. 60 minutes spent with patient more than 50% of time spent in direct patient care. REASON FOR CONSULTATION: Patient with history of coronary artery disease, history of stent, with mildly elevated troponin levels. Assess coronary artery disease status. CONSULT REQUESTING PHYSICIAN: Dr. Sosa. HISTORY OF PRESENT ILLNESS: Patient is a obese 59-year-old male with known history of coronary artery disease, hypertension and diabetes mellitus and hyperlipidemia, GERD, depression and bipolar disorder which is stable on current psychiatric medication. Who was admitted with complaints of blurred vision and headache. The patient states the symptoms started after he drank Mountain Dew. His blood sugar was in the 500 and in route he was found to have tonic-clonic 3 0 seizures and was placed on Keppra. The patient denies any chest pain or discomfort. There is no shortness of breath PND orthopnea or palpitations. There is no definite syncope. The patient did have a postictal phase. His EKG shows some minor nonspecific changes, but the troponin which was initially indeterminate is mildly elevated at 0.148 and is now trending down. Again on detailed repeated questioning the patient denies any chest pain or discomfort or any symptoms suggestive of atypical or typical angina. Note the patient in 2012 had a stent placed in the distal RCA. The patient had a cardiac catheterization 2014 due to chest pain and this showed a patent stent. The patient subsequently had abdominal stress test in June 2018 and ended up having a cardiac catheterization in June 2018. This showed some nonobstructive coronary artery disease with patent site of the distal RCA stent. There was a 70% lesion in the distal RCA which was not intervened upon since the subtended territory of myocardium was very small. The patient has not had any further chest pains since then. 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 He is willing to follow-up with me. He denies history of CA. He has no history of asthma or COPD. No history of pulmonary embolism. [RECORDS from [facility] reviewed] Past Medical History Cardiac Medical History: Reports: Coronary Artery Disease, Myocardial Infarction - x3, Hyperlipidema, Hypertension Pulmonary Medical History: Reports: Asthma, Chronic Obstructive Pulmonary Disease (COPD), Sleep Apnea Endocrine Medical History: Reports: Diabetes Mellitus Type 2 GI Medical History: Reports: Gastroesophageal Reflux Disease Musculoskeltal Medical History: Reports: Arthritis Psychiatric Medical History: Reports: Bipolar Disorder, Depression Hematology: Denies: Anemia, Bleeding Tendencies Past Surgical History Past Surgical History: Reports: Cardiac Catheterization, Coronary Stent, Orthopedic Surgery - Bilateral total knee, Tonsillectomy Social History Information Source: Patient Lives with: Family Smoking Status: Former Smoker Electronic Cigarette use?: No Frequency of Alcohol Use: None Hx Recreational Drug Use: No Hx Prescription Drug Abuse: No Family History Family History: Reviewed & Not Pertinent, Arthritis, CAD, DM, Hyperlipidemia, Hypertension Parental Family History Reviewed: Yes Children Family History Reviewed: Yes Sibling(s) Family History Reviewed.: Yes Medication/Allergy Home Medications: Aripiprazole [Abilify 15 mg Tablet] 15 mg PO Q12 03/09/18 Atorvastatin Calcium [Lipitor 20 mg Tablet] 20 mg PO QHS 03/09/18 Benztropine Mesylate [Cogentin 1 mg Tablet] 1 mg PO BID 03/09/18 Diazepam [Valium 5 mg Tablet] 5 mg PO DAILY 03/09/18 Famotidine [Pepcid 20 mg Tablet] 20 mg PO BID 03/09/18 Fluticasone Propionate [Flonase Nasal Clifton 50 Mcg/[place] 16 gm] 1 spray NASL DAILY 03/09/18 Glipizide [Glucotrol 10 mg Tablet] 10 mg PO DAILY 03/09/18 Insulin Aspart [Novolog Flexpen] 0 units SQ .SLIDING SCALE 03/09/18 Insulin Detemir [Levemir Flextouch] 55 units SQ DAILY 03/09/18 Isosorbide Mononitrate [Isosorbide Mononitrate ER] 30 mg PO DAILY 03/09/18 Latanoprost [Xalatan 0.005% Oph Soln 2.5 ml] 1 drop OU QHS 03/09/18 Levocetirizine Dihydrochloride [Xyzal] 5 mg PO DAILY 03/09/18 Metoprolol Succinate [Toprol Xl 25 mg Tab.sr] 25 mg PO Q12 03/09/18 Montelukast Sodium [Singulair 10 mg Tablet] 10 mg PO QPM 03/09/18 Omeprazole 20 mg PO BID 03/09/18 Paroxetine HCl [Paxil] 40 mg PO DAILY 03/09/18 Tamsulosin HCl [Flomax 0.4 mg Cap.sr] 0.4 mg PO QPM 03/09/18 Trazodone HCl [Desyrel] 100 mg PO BID 03/09/18 Ranolazine [Ranexa 500 mg Tab.sr] 500 mg PO Q12 #60 tab.sr.12h 03/10/18 Ketoconazole 30 gm TP DAILY #1 cream..g. 07/21/18 Docusate Sodium [Colace] 100 mg PO DAILY #20 capsule 08/03/18 Isosorbide Mononitrate [Imdur 30 mg Tablet.er] 30 mg PO DAILY #30 tab.er.24h 08/22/19 Metoprolol Succinate [Toprol Xl 25 mg Tab.sr] 25 mg PO DAILY #30 tab.sr.24h 08/22/19 Allergies/Adverse Reactions: No Known Drug Allergies Allergy (Verified 08/03/18 12:37) Cheese Allergy (Uncoded 08/03/18 12:37) VINEGAR Allergy (Uncoded 08/03/18 12:37) Hives Current Medications Generic Name Dose Route Start Last Admin Trade Name Freq PRN Reason Stop Dose Admin Acetaminophen 650 mg 11/07/19 00:58 Tylenol 325 Mg Tablet PO 12/07/19 00:57 Q4HP PRN Temp greater than 101F Albuterol/Ipratropium 3 ml 11/07/19 08:47 Duoneb 3 Ml Ampul NEB 12/07/19 08:46 [id number] PRN SHORTNESS OF BREATH Aspirin 81 mg 11/07/19 10:00 11/07/19 10:17 Ecotrin 81 Mg Ec Tablet PO 12/07/19 09:59 81 mg DAILY HILDA Administration Atorvastatin Calcium 40 mg 11/07/19 22:00 11/07/19 22:17 Lipitor 40 Mg Tablet PO 12/07/19 21:59 40 mg QHS HILDA Administration Clopidogrel Bisulfate 75 mg 11/07/19 10:00 11/07/19 10:16 Plavix 75 Mg Tablet PO 12/07/19 09:59 75 mg DAILY HILDA Administration Dextrose 12.5 gm 11/07/19 01:01 Dextrose Inj 50% Syringe (25 Gm/50 Ml) IV 12/07/19 01:00 PRN PRN FOR BG 50-69 IN ALERT PATIENT Protocol Dextrose 25 gm 11/07/19 01:01 Dextrose Inj 50% Syringe (25 Gm/50 Ml) IV 12/07/19 01:00 PRN PRN PER PROTOCOL Protocol Enoxaparin Sodium 40 mg 11/07/19 10:00 11/07/19 10:16 Lovenox Inj 40 Mg/0.4 Ml Disp.Syrin SUBCUT 12/07/19 09:59 40 mg DAILY HILDA Administration Famotidine 20 mg 11/07/19 10:00 11/07/19 22:17 Pepcid 20 Mg Tablet PO 12/07/19 09:59 20 mg Q12 HILDA Administration Glucagon 1 mg 11/07/19 01:01 Glucagen Inj 1 Mg Vial IM 12/07/19 01:00 PRN PRN Evaluate for BG < 70 Protocol Glucose 15 gm 11/07/19 01:01 Glutose 40% Gel 15 Gm Tube PO 12/07/19 01:00 PRN PRN FOR BG 50-69 IN ALERT PATIENT Protocol Glucose 30 gm 11/07/19 01:01 Glutose 40% Gel 15 Gm Tube PO 12/07/19 01:00 PRN PRN FOR BG < 50 IN ALERT PATIENT Protocol Levetiracetam 1,000 mg in 100 mls @ 400 mls/hr 11/07/19 10:00 11/07/19 22:16 Keppra Rtu 1000 Mg/Nacl-Iso 100 Ml Premix IV 12/07/19 09:59 400 mls/hr Q12 HILDA 400 mls/hr Administration Ceftriaxone Sodium/Dextrose 2 gm in 50 mls @ 100 mls/hr 11/07/19 22:00 11/07/19 22:19 Rocephin Rtu 2 Gm/D5w 50 Ml Premix Bag IV 11/14/19 21:59 100 mls/hr QHS HILDA 100 mls/hr Administration Insulin Glargine 35 unit 11/07/19 10:00 11/07/19 22:17 Lantus Insulin 100 Unit/1 Ml 10 Ml SUBCUT 12/07/19 09:59 35 unit Q12 HILDA Administration Insulin Human Regular 0 - 12 unit 11/07/19 08:00 11/07/19 22:19 Humulin R (Pyxis) Insulin 100 Unit/Ml 3ml SUBCUT 12/07/19 07:59 8 unit ACHS HILDA Administration Protocol Isosorbide Mononitrate 30 mg 11/07/19 10:00 06/03/20 10:16 Imdur 60 Mg Tablet.Er PO 12/07/19 09:59 30 mg DAILY HILDA Administration Metoprolol Succinate 25 mg 11/07/19 10:00 11/07/19 10:16 Toprol Xl 25 Mg Tab.Sr PO 12/07/19 09:59 25 mg Q12 HILDA Administration Sodium Chloride 2.5 ml 11/07/19 06:00 11/07/19 14:22 Saline Flush 2.5 Ml Monoject Prefil Syrin IV 12/07/19 05:59 Not Given Q8 HILDA Discontinued Medications Generic Name Dose Route Start Last Admin Trade Name Freq PRN Reason Stop Dose Admin Ceftriaxone Sodium 2,000 mg 11/06/19 21:25 11/06/19 21:38 Rocephin Inj 1000 Mg Vial IV 11/06/19 21:26 2,000 mg IVBAG (ED) ONE Administration Levetiracetam 1,000 mg in 100 mls @ 400 mls/hr 11/06/19 20:41 11/06/19 21:13 Keppra Rtu 1000 Mg/Nacl-Iso 100 Ml Premix IV 11/06/19 20:55 Infused NOW ONE Infusion Sodium Chloride 1,000 mls @ 75 mls/hr 11/07/19 00:58 Nacl 0.9% 1000 Ml Iv Soln IV 12/07/19 00:57 CONTINUOUS PRN THIS MED IS NOT "PRN" Insulin Human Regular 10 unit 11/06/19 20:38 11/06/19 20:56 Humulin R (Pyxis) Insulin 100 Unit/Ml 3ml IV 11/06/19 20:39 10 unit NOW ONE Administration Insulin Human Regular 100 unit 11/06/19 20:39 11/06/19 20:59 Humulin R (Pyxis) Insulin 100 Unit/Ml 3ml IV 11/06/19 20:40 100 unit IVBAG (ED) ONE Administration RESUSCITATION STATUS: The patient is a full code. His is a surrogate healthcare decision maker. Review of Systems Constitutional: ABSENT: chills, fever(s), headache(s), weight gain, weight loss Eyes: ABSENT: visual disturbances Ears: ABSENT: hearing changes Cardiovascular: ABSENT: chest pain, dyspnea on exertion, edema, orthropnea, palpitations Respiratory: ABSENT: cough, hemoptysis Gastrointestinal: ABSENT: abdominal pain, constipation, diarrhea, hematemesis, hematochezia, nausea, vomiting Genitourinary: ABSENT: dysuria, hematuria Musculoskeletal: ABSENT: joint swelling Integumentary: ABSENT: rash, wounds Neurological: ABSENT: abnormal gait, abnormal speech, confusion, dizziness, focal weakness, syncope Psychiatric: ABSENT: anxiety, depression, homidical ideation, suicidal ideation Endocrine: ABSENT: cold intolerance, heat intolerance, menstrual abnormalities, polydipsia, polyuria Hematologic/Lymphatic: ABSENT: easy bleeding, easy bruising, lymphadenopathy PHYSICAL EXAMINATION: The patient is moderate to morbidly obese. At present in no acute distress. Selected Entries 11/07/19 08:02 Temperature 98.0 F Temperature Oral Source Pulse Rate 74 Respiratory 20 Rate Blood Pressure 154/76 H Blood Pressure 102 Mean BP Location Right Arm BP Position Supine O2 Sat by Pulse 95 Oximetry Oxygen Delivery Room Air Method HEAD: Is atraumatic normocephalic. EYES: Pupils are equal round regular reactive light accommodation. Extraocular movements are normal. There is no conjunctival pallor. There is no scleral icterus. Ears: Tympanic membranes are intact. External auditory canals are clear. NOSE: There is no deviated nasal septum. There is no inflammation of nasal mucous membrane. MOUTH: Mucous membranes of mouth are moist. Tongue are moist. There is no ulcers. There is no bleeding from the gums. THROAT: There is no redness of the oropharynx. There is no exudates. SKIN: There is no skin rashes. There is no petechia or ecchymosis. There is no skin lesions. NECK: Supple. There is no JVD. Carotids are equal there is no bruit. There is no lymphadenopathy. There is no goiter. There is no accessory muscle respiration use. Trachea is central. LUNGS: Is clear to auscultation percussion without any rhonchi rales or wheezing. HEART: S1-S2 is heard. There is no S3 gallop. There is no S4 gallop. Systolic murmur left sternal border and the apex there is no rub. ABDOMEN: Is obese. Nontender. There is no paraspinal megaly. Bowel sounds are well heard. EXTREMITIES: Femorals are slightly diminished. Leg pulses are well felt. There is no pedal edema. There is no DVT or cellulitis. There is no calf tenderness. There is no cyanosis or clubbing. CONSUMER INSIGHTS SPECIALIST: The patient is conscious awake alert oriented x3 with no focal deficits. PSYCHIATRIC: The patient judgment insight are intact his affect is normal. 11/06/2019: EKG shows sinus tachycardia. Poor R wave progression in the precordial leads. Diffuse nonspecific minor ST changes. The patient's EKG of 11/07/2019 shows sinus rhythm. With minor nonspecific diffuse T abnormality. Labs- Entire Visit 11/06/19 11/06/19 11/06/19 20:28 20:31 20:31 WBC 10.8 H RBC 5.43 Hgb 16.2 Hct 48.3 MCV 89 MCH 29.8 MCHC 33.4 RDW 13.1 Plt Count 235 Lymph % (Auto) 32.1 Brantley % (Auto) 8.1 Eos % (Auto) 0.9 Baso % (Auto) 0.6 Absolute Neuts (auto) 6.3 Absolute Lymphs (auto) 3.5 Absolute Monos (auto) 0.9 Absolute Eos (auto) 0.1 Absolute Basos (auto) 0.1 Seg Neutrophils % 58.3 PT 13.5 INR 1.03 APTT 28.2 Carbonic Acid HCO3/H2CO3 Ratio ABG pH ABG pCO2 ABG pO2 ABG HCO3 ABG Total CO2 ABG O2 Saturation ABG Base Excess FiO2 Sodium Potassium Chloride Carbon Dioxide Anion Gap BUN Creatinine Est GFR ( Amer) Est GFR (MDRD) Non-Af Glucose POC Glucose 505 H* Calcium Total Bilirubin Direct Bilirubin Neonat Total Bilirubin Neonat Direct Bilirubin Neonat Indirect Bili AST ALT Alkaline Phosphatase Creatine Kinase CK-MB (CK-2) Troponin I Total Protein Albumin Lipase Vitamin B12 TSH Prolactin Urine Color Urine Appearance Urine pH Ur Specific [place] Urine Protein Urine Glucose (UA) Urine Ketones Urine Blood Urine Nitrite (Reflex) Urine Bilirubin Urine Urobilinogen Leukocyte Esterase Rfl Urine RBC (Auto) Urine WBC (Reflex) Urine Mucus (Auto) Urine Ascorbic Acid 11/06/19 11/06/19 11/06/19 20:31 20:31 20:31 WBC RBC Hgb Hct MCV MCH MCHC RDW Plt Count Lymph % (Auto) Brantley % (Auto) Eos % (Auto) Baso % (Auto) Absolute Neuts (auto) Absolute Lymphs (auto) Absolute Monos (auto) Absolute Eos (auto) Absolute Basos (auto) Seg Neutrophils % PT INR APTT Carbonic Acid HCO3/H2CO3 Ratio ABG pH ABG pCO2 ABG pO2 ABG HCO3 ABG Total CO2 ABG O2 Saturation ABG Base Excess FiO2 Sodium 134.4 L Potassium 4.1 Chloride 96 L Carbon Dioxide 18 L Anion Gap 20 H BUN 13 Creatinine 0.86 Est GFR ( Amer) > 60 Est GFR (MDRD) Non-Af > 60 Glucose 523 H* POC Glucose Calcium 9.5 Total Bilirubin 0.5 Direct Bilirubin 0.0 Neonat Total Bilirubin Not Reportable Neonat Direct Bilirubin Not Reportable Neonat Indirect Bili Not Reportable AST 26 ALT 35 Alkaline Phosphatase 118 Creatine Kinase 34 L CK-MB (CK-2) 0.31 Troponin I 0.023 Total Protein 6.9 Albumin 4.2 Lipase 204.1 Vitamin B12 TSH Prolactin Urine Color Urine Appearance Urine pH Ur Specific [place] Urine Protein Urine Glucose (UA) Urine Ketones Urine Blood Urine Nitrite (Reflex) Urine Bilirubin Urine Urobilinogen Leukocyte Esterase Rfl Urine RBC (Auto) Urine WBC (Reflex) Urine Mucus (Auto) Urine Ascorbic Acid 11/06/19 11/06/19 11/06/19 21:38 21:49 22:22 WBC RBC Hgb Hct MCV MCH MCHC RDW Plt Count Lymph % (Auto) Brantley % (Auto) Eos % (Auto) Baso % (Auto) Absolute Neuts (auto) Absolute Lymphs (auto) Absolute Monos (auto) Absolute Eos (auto) Absolute Basos (auto) Seg Neutrophils % PT INR APTT Carbonic Acid Cancelled 1.37 H HCO3/H2CO3 Ratio Cancelled 19:1 ABG pH Cancelled 7.39 ABG pCO2 Cancelled 45.6 H ABG pO2 Cancelled 82.4 ABG HCO3 Cancelled 27.1 H ABG Total CO2 Cancelled 28.5 H ABG O2 Saturation Cancelled 96.0 ABG Base Excess Cancelled 1.6 FiO2 Cancelled 4L Sodium Potassium Chloride Carbon Dioxide Anion Gap BUN Creatinine Est GFR ( Amer) Est GFR (MDRD) Non-Af Glucose POC Glucose 379 H Calcium Total Bilirubin Direct Bilirubin Neonat Total Bilirubin Neonat Direct Bilirubin Neonat Indirect Bili AST ALT Alkaline Phosphatase Creatine Kinase CK-MB (CK-2) Troponin I Total Protein Albumin Lipase Vitamin B12 TSH Prolactin Urine Color Urine Appearance Urine pH Ur Specific [place] Urine Protein Urine Glucose (UA) Urine Ketones Urine Blood Urine Nitrite (Reflex) Urine Bilirubin Urine Urobilinogen Leukocyte Esterase Rfl Urine RBC (Auto) Urine WBC (Reflex) Urine Mucus (Auto) Urine Ascorbic Acid 11/06/19 11/06/19 11/06/19 22:35 22:37 22:44 WBC RBC Hgb Hct MCV MCH MCHC RDW Plt Count Lymph % (Auto) Brantley % (Auto) Eos % (Auto) Baso % (Auto) Absolute Neuts (auto) Absolute Lymphs (auto) Absolute Monos (auto) Absolute Eos (auto) Absolute Basos (auto) Seg Neutrophils % PT INR APTT Carbonic Acid HCO3/H2CO3 Ratio ABG pH ABG pCO2 ABG pO2 ABG HCO3 ABG Total CO2 ABG O2 Saturation ABG Base Excess FiO2 Sodium Potassium Chloride Carbon Dioxide Anion Gap BUN Creatinine Est GFR ( Amer) Est GFR (MDRD) Non-Af Glucose POC Glucose 304 H Calcium Total Bilirubin Direct Bilirubin Neonat Total Bilirubin Neonat Direct Bilirubin Neonat Indirect Bili AST ALT Alkaline Phosphatase Creatine Kinase 38 L CK-MB (CK-2) Troponin I Total Protein Albumin Lipase Vitamin B12 TSH Prolactin Urine Color STRAW Urine Appearance CLEAR Urine pH 7.0 Ur Specific [place] 1.024 Urine Protein 30 H Urine Glucose (UA) >=500 H Urine Ketones NEGATIVE Urine Blood NEGATIVE Urine Nitrite (Reflex) NEGATIVE Urine Bilirubin NEGATIVE Urine Urobilinogen NEGATIVE Leukocyte Esterase Rfl NEGATIVE Urine RBC (Auto) 1 Urine WBC (Reflex) 1 Urine Mucus (Auto) RARE Urine Ascorbic Acid 20 H 11/06/19 11/07/19 11/07/19 22:44 00:13 01:35 WBC RBC Hgb Hct MCV MCH MCHC RDW Plt Count Lymph % (Auto) Brantley % (Auto) Eos % (Auto) Baso % (Auto) Absolute Neuts (auto) Absolute Lymphs (auto) Absolute Monos (auto) Absolute Eos (auto) Absolute Basos (auto) Seg Neutrophils % PT INR APTT Carbonic Acid HCO3/H2CO3 Ratio ABG pH ABG pCO2 ABG pO2 ABG HCO3 ABG Total CO2 ABG O2 Saturation ABG Base Excess FiO2 Sodium Potassium Chloride Carbon Dioxide Anion Gap BUN Creatinine Est GFR ( Amer) Est GFR (MDRD) Non-Af Glucose POC Glucose 351 H 328 H Calcium Total Bilirubin Direct Bilirubin Neonat Total Bilirubin Neonat Direct Bilirubin Neonat Indirect Bili AST ALT Alkaline Phosphatase Creatine Kinase CK-MB (CK-2) 0.43 Troponin I 0.035 Total Protein Albumin Lipase Vitamin B12 TSH Prolactin Urine Color Urine Appearance Urine pH Ur Specific [place] Urine Protein Urine Glucose (UA) Urine Ketones Urine Blood Urine Nitrite (Reflex) Urine Bilirubin Urine Urobilinogen Leukocyte Esterase Rfl Urine RBC (Auto) Urine WBC (Reflex) Urine Mucus (Auto) Urine Ascorbic Acid 11/07/19 11/07/19 11/07/19 05:05 05:05 08:04 WBC RBC Hgb Hct MCV MCH MCHC RDW Plt Count Lymph % (Auto) Brantley % (Auto) Eos % (Auto) Baso % (Auto) Absolute Neuts (auto) Absolute Lymphs (auto) Absolute Monos (auto) Absolute Eos (auto) Absolute Basos (auto) Seg Neutrophils % PT INR APTT Carbonic Acid HCO3/H2CO3 Ratio ABG pH ABG pCO2 ABG pO2 ABG HCO3 ABG Total CO2 ABG O2 Saturation ABG Base Excess FiO2 Sodium Potassium Chloride Carbon Dioxide Anion Gap BUN Creatinine Est GFR ( Amer) Est GFR (MDRD) Non-Af Glucose POC Glucose 305 H Calcium Total Bilirubin Direct Bilirubin Neonat Total Bilirubin Neonat Direct Bilirubin Neonat Indirect Bili AST ALT Alkaline Phosphatase Creatine Kinase 68 CK-MB (CK-2) 0.84 Troponin I 0.148 Total Protein Albumin Lipase Vitamin B12 TSH Prolactin Urine Color Urine Appearance Urine pH Ur Specific [place] Urine Protein Urine Glucose (UA) Urine Ketones Urine Blood Urine Nitrite (Reflex) Urine Bilirubin Urine Urobilinogen Leukocyte Esterase Rfl Urine RBC (Auto) Urine WBC (Reflex) Urine Mucus (Auto) Urine Ascorbic Acid 11/07/19 11/07/19 11/07/19 09:23 09:23 09:23 WBC RBC Hgb Hct MCV MCH MCHC RDW Plt Count Lymph % (Auto) Brant[place] % (Auto) Eos % (Auto) Baso % (Auto) Absolute Neuts (auto) Absolute Lymphs (auto) Absolute Monos (auto) Absolute Eos (auto) Absolute Basos (auto) Seg Neutrophils % PT INR APTT Carbonic Acid HCO3/H2CO3 Ratio ABG pH ABG pCO2 ABG pO2 ABG HCO3 ABG Total CO2 ABG O2 Saturation ABG Base Excess FiO2 Sodium Potassium Chloride Carbon Dioxide Anion Gap BUN Creatinine Est GFR ( Amer) Est GFR (MDRD) Non-Af Glucose POC Glucose Calcium Total Bilirubin Direct Bilirubin Neonat Total Bilirubin Neonat Direct Bilirubin Neonat Indirect Bili AST ALT Alkaline Phosphatase Creatine Kinase CK-MB (CK-2) Troponin I Total Protein Albumin Lipase Vitamin B12 336.0 TSH 0.69 Prolactin 7.2 Urine Color Urine Appearance Urine pH Ur Specific [place] Urine Protein Urine Glucose (UA) Urine Ketones Urine Blood Urine Nitrite (Reflex) Urine Bilirubin Urine Urobilinogen Leukocyte Esterase Rfl Urine RBC (Auto) Urine WBC (Reflex) Urine Mucus (Auto) Urine Ascorbic Acid 11/07/19 11/07/19 11/07/19 10:50 10:50 11:53 WBC RBC Hgb Hct MCV MCH MCHC RDW Plt Count Lymph % (Auto) Brantley % (Auto) Eos % (Auto) Baso % (Auto) Absolute Neuts (auto) Absolute Lymphs (auto) Absolute Monos (auto) Absolute Eos (auto) Absolute Basos (auto) Seg Neutrophils % PT INR APTT Carbonic Acid HCO3/H2CO3 Ratio ABG pH ABG pCO2 ABG pO2 ABG HCO3 ABG Total CO2 ABG O2 Saturation ABG Base Excess FiO2 Sodium Potassium Chloride Carbon Dioxide Anion Gap BUN Creatinine Est GFR ( Amer) Est GFR (MDRD) Non-Af Glucose POC Glucose 394 H Calcium Total Bilirubin Direct Bilirubin Neonat Total Bilirubin Neonat Direct Bilirubin Neonat Indirect Bili AST ALT Alkaline Phosphatase Creatine Kinase 74 CK-MB (CK-2) 0.77 Troponin I 0.127 Total Protein Albumin Lipase Vitamin B12 TSH Prolactin Urine Color Urine Appearance Urine pH Ur Specific [place] Urine Protein Urine Glucose (UA) Urine Ketones Urine Blood Urine Nitrite (Reflex) Urine Bilirubin Urine Urobilinogen Leukocyte Esterase Rfl Urine RBC (Auto) Urine WBC (Reflex) Urine Mucus (Auto) Urine Ascorbic Acid 11/07/19 11/07/19 16:39 21:55 WBC RBC Hgb Hct MCV MCH MCHC RDW Plt Count Lymph % (Auto) [place] % (Auto) Eos % (Auto) Baso % (Auto) Absolute Neuts (auto) Absolute Lymphs (auto) Absolute Monos (auto) Absolute Eos (auto) Absolute Basos (auto) Seg Neutrophils % PT INR APTT Carbonic Acid HCO3/H2CO3 Ratio ABG pH ABG pCO2 ABG pO2 ABG HCO3 ABG Total CO2 ABG O2 Saturation ABG Base Excess FiO2 Sodium Potassium Chloride Carbon Dioxide Anion Gap BUN Creatinine Est GFR ( Amer) Est GFR (MDRD) Non-Af Glucose POC Glucose 318 H 346 H Calcium Total Bilirubin Direct Bilirubin Neonat Total Bilirubin Neonat Direct Bilirubin Neonat Indirect Bili AST ALT Alkaline Phosphatase Creatine Kinase CK-MB (CK-2) Troponin I Total Protein Albumin Lipase Vitamin B12 TSH Prolactin Urine Color Urine Appearance Urine pH Ur Specific [place] Urine Protein Urine Glucose (UA) Urine Ketones Urine Blood Urine Nitrite (Reflex) Urine Bilirubin Urine Urobilinogen Leukocyte Esterase Rfl Urine RBC (Auto) Urine WBC (Reflex) Urine Mucus (Auto) Urine Ascorbic Acid Chest X-Ray 11/06/19 20:14 IMPRESSION: New left basilar airspace and pleural disease.. Head CT 11/06/19 20:14 IMPRESSION: No acute intracranial process is identified. No adverse change from prior. The cause of the patient's neurologic deficit is not identified on this examination. Head MRI 11/07/19 00:00 IMPRESSION: 1. Acute lacunar infarct in the left posterior frontal white matter. 2. Chronic microvascular ischemic disease. Head CTA 11/07/19 00:36 IMPRESSION: 1. No major branch occlusion, flow limiting stenosis, or aneurysm is identified intracranially. 2. No cervical carotid or vertebral stenosis All quantitative and qualitative assessments of carotid bifurcation and proximal internal carotid artery stenosis are made at referencing the distal internal carotid artery. TECHNICAL DOCUMENTATION: Quality ID # [id number]: Final reports with documentation of one or more dose reduction techniques (e.g., Automated exposure control, adjustment of the mA and/or kV according to patient size, use of iterative reconstruction technique) copyright 2011 [employer]- All Rights Reserved Neck CTA 11/07/19 00:36 IMPRESSION: 1. No major branch occlusion, flow limiting stenosis, or aneurysm is identified intracranially. 2. No cervical carotid or vertebral stenosis EEG: Is normal. Sleep deprived EEG and ambulatory EEG has been recommended. IMPRESSION/RECOMMENDATION: 1. Elevated troponin I. All by the patient having underlying coronary artery disease the patient is knows his anginal symptoms typical or atypical, and no major EKG changes. This is most likely secondary to supply demand mismatch secondary to troponin leak due to the patient's seizures. But in view of the patient's underlying coronary artery disease would strongly recommend to increase the patient's Imdur and the beta-rula. Later would recommend that the patient have a IV Lexiscan Cardiolite stress test. This can be done as an outpatient. 2. Hyperglycemia: Continue antidiabetic treatment. 3. Seizure disorder: New onset seizures. CONSUMER INSIGHTS SPECIALIST work-up so far is negative. Further treatment and work-up as per attending provider on the case. Cardiology point of view, Ranexa has known to cause seizures. Hence would discontinue R anexa 4. Diabetes mellitus: Continue antidiabetic treatment as per attending physician. 5. Coronary artery disease: History of distal right coronary artery stent. Patent stent site by cardiac catheterization 2019 although this showed that there is a distal significant LAD lesion, with a subtended territory distal to the stenosis being very small. Ramirez would recommend maximizing the patie nt's medical therapy towards coronary artery disease. Also strongly recommend aggressive risk factor modification. As mentioned earlier would discontinue the patient's Ranexa. Continue aspirin and Plavix.. 6. Hypertension: Blood pressure seems to be fairly well controlled. 1. Bipolar disorder: Stable in remission. Medications reviewed. Medications adjusted. Medical decision making and blair gement plan discussed with attending provider Dr. Sosa. Medical decision making is of high complexity. 60 minutes spent with patient more than 50% of time spent in direct patient care. Will follow.
--- NOTE | 2019-11-07 21:18 | RADIOLOGY REPORT (SQ) ---
MR BRAIN WITHOUT IV CONTRAST EXAM DATE: 11/07/2019 12:00 AM CDT HISTORY: CVA. COMPARISON: CT scan from earlier the same day. TECHNIQUE: Multisequence, multiplanar MR imaging of the brain was performed without the administration of intravenous gadolinium. FINDINGS: There is an area restricted diffusion in the left posterior frontal periventricular white matter. Scattered areas of T2/FLAIR hyperintense foci are seen in the supratentorial white matter, likely representing chronic microvascular ischemia. There is no intracranial hemorrhage, extra-axial fluid collection, or mass. The orbits are unremarkable. The calvarium and skull base appear unremarkable. The paranasal sinuses are clear. IMPRESSION: 1. Acute lacunar infarct in the left posterior frontal white matter. 2. Chronic microvascular ischemic disease.
[2019-11-07] MEDS ORDERED: ATORVASTATIN CALCIUM 40 MG TABLET PO SCH (22:00)
[2019-11-07] MEDS: CEFTRIAXONE 2 GM/D5W RTU 2 GM/50 ML RTUPB IV SCH (22:19)
--- NOTE | 2019-11-07 23:29 | EKG REPORT ---
SEVERITY:- BORDERLINE ECG - SINUS RHYTHM BORDERLINE T ABNORMALITIES, DIFFUSE LEADS : Confirmed by: Domo Pompa 07-Nov-2019 23:28:18
--- NOTE | 2019-11-07 23:29 | EKG REPORT ---
SEVERITY:- ABNORMAL ECG - SINUS TACHYCARDIA PROBABLE LEFT ATRIAL ABNORMALITY ABNRM R PROG, CONSIDER ASMI OR LEAD PLACEMENT : Confirmed by: Domo Pompa 07-Nov-2019 23:28:27
[2019-11-08 05:51] LABS: ABSOLUTE BASOPHILS # (AUTO) 0.1 10^3/uL (0.0-0.2); ABSOLUTE EOSINOPHILS # (AUTO) 0.2 10^3/uL (0.0-0.6); ABSOLUTE LYMPHOCYTES (AUTO) 2.5 10^3/uL (0.5-4.7); ABSOLUTE MONOCYTES (AUTO) 0.6 10^3/uL (0.1-1.4); ABSOLUTE NEUT (AUTO) 5.5 10^3/uL (1.7-8.2); BASOPHILS % (AUTO) 0.8 % (0-2); EOSINOPHILS % (AUTO) 2.3 % (0-6); HEMATOCRIT 43.6 % (37.9-51.0); HEMOGLOBIN 15.2 g/dL (13.5-17.0); LYMPHOCYTES % (AUTO) 28.3 % (13-45); MEAN CORPUSCULAR HEMOGLOBIN 29.9 pg (27.0-33.4); MEAN CORPUSCULAR HGB CONC 34.8 g/dL (32.0-36.0); MEAN CORPUSCULAR VOLUME 86 fl (80-97); MONOCYTES % (AUTO) 6.6 % (3-13); PLATELET COUNT 220 10^3/uL (150-450); RED BLOOD COUNT 5.08 10^6/uL (4.35-5.55); RED CELL DISTRIBUTION WIDTH 13.4 % (11.5-14.0); TOTAL CELLS COUNTED % (AUTO) 100 %; WHITE BLOOD COUNT 8.9 10^3/uL (4.0-10.5)
[2019-11-08 06:03] LABS: CHOLESTEROL 131.39 mg/dL (0-200); TRIGLYCERIDES 230 mg/dL (<150)
[2019-11-08 06:14] LABS: ALBUMIN 3.4 g/dL (3.5-5.0); ALKALINE PHOSPHATASE 67 U/L (38-126); ANION GAP 8 (5-19); ASPARTATE AMINO TRANSFERASE 24 U/L (17-59); BILIRUBIN,TOTAL 0.5 mg/dL (0.2-1.3); BLOOD UREA NITROGEN 11 mg/dL (7-20); CALCIUM 8.6 mg/dL (8.4-10.2); CARBON DIOXIDE 25 mmol/L (22-30); CHLORIDE 102 mmol/L (98-107); DIRECT LDL 72 mg/dL (<100); GLUCOSE 257 mg/dL (75-110); POTASSIUM 3.9 mmol/L (3.6-5.0); TOTAL PROTEIN 6.1 g/dL (6.3-8.2)
--- NOTE | 2019-11-08 08:38 | PDOC PROGRESS REPORT ---
Subjective Progress Note for:: 11/08/19 Subjective:: Patient is currently doing well MRI shows acute left lacunar infarct Patient's denied any chest pain denied any shortness of the breath There were no seizures activity EEG did not show any seizures activity Since seen by the cardiology about elevated troponin leak suggests unlikely to be any acute coronary syndromes follow outpatient Patient is otherwise doing well Extensive discussions with the patient about compliance of the diet and a tight blood sugar control require to prevent the further complications will get the diabetic education's and the dietitian education's today Reason For Visit: SEZIURE Physical Exam Vital Signs: Temp Pulse Resp BP Pulse Ox 97.6 F 61 16 125/71 98 11/08/19 03:31 11/08/19 04:00 11/08/19 04:00 11/08/19 04:00 11/08/19 04:00 Intake & Output 11/07/19 11/08/19 11/09/19 06:59 06:59 06:59 Intake Total 340 870 Output Total 600 1000 Balance -260 -130 Weight 118.7 kg 116.5 kg General appearance: PRESENT: no acute distress, well-developed, well-nourished Head exam: PRESENT: atraumatic, normocephalic Eye exam: PRESENT: conjunctiva pink, EOMI, PERRLA. ABSENT: scleral icterus Ear exam: PRESENT: normal external ear exam Mouth exam: PRESENT: moist, tongue midline Neck exam: PRESENT: full ROM. ABSENT: carotid bruit, JVD, lymphadenopathy, thy romegaly Respiratory exam: PRESENT: clear to auscultation tricia Cardiovascular exam: PRESENT: RRR. ABSENT: diastolic murmur, rubs, systolic murmur Pulses: PRESENT: normal dorsalis pedis pul, +2 pedal pulses bilateral Vascular exam: PRESENT: normal capillary refill GI/Abdominal exam: PRESENT: normal bowel sounds, soft. ABSENT: distended, guarding, mass, organolmegaly, rebound, tenderness Rectal exam: PRESENT: deferred Musculoskeletal exam: PRESENT: ambulatory Neurological exam: PRESENT: alert, awake, oriented to person, oriented to place, oriented to time, oriented to situation, CN II-XII grossly intact. ABSENT: motor sensory deficit Psychiatric exam: PRESENT: appropriate affect, normal mood. ABSENT: homicidal ideation, suicidal ideation Skin exam: PRESENT: dry, intact, warm. ABSENT: cyanosis, rash Results Laboratory Results: 11/08/19 04:12 11/08/19 04:12 11/07/19 11/07/19 11/08/19 09:23 09:23 04:12 WBC 8.9 RBC 5.08 Hgb 15.2 Hct 43.6 MCV 86 MCH 29.9 MCHC 34.8 RDW 13.4 Plt Count 220 Seg Neutrophils % 62.0 Sodium Potassium Chloride Carbon Dioxide Anion Gap BUN Creatinine Est GFR ( Amer) Glucose Calcium Total Bilirubin AST Alkaline Phosphatase Total Protein Albumin Triglycerides Cholesterol LDL Cholesterol Direct VLDL Cholesterol HDL Cholesterol Vitamin B12 336.0 TSH 0.69 11/08/19 11/08/19 04:12 04:12 WBC RBC Hgb Hct MCV MCH MCHC RDW Plt Count Seg Neutrophils % Sodium 134.5 L Potassium 3.9 Chloride 102 Carbon Dioxide 25 Anion Gap 8 BUN 11 Creatinine 0.74 Est GFR ( Amer) > 60 Glucose 257 H Calcium 8.6 Total Bilirubin 0.5 AST 24 Alkaline Phosphatase 67 Total Protein 6.1 L Albumin 3.4 L Triglycerides 230 H Cholesterol 131.39 LDL Cholesterol Direct 72 VLDL Cholesterol 46.0 H HDL Cholesterol 33 L Vitamin B12 TSH 11/06/19 11/06/19 11/06/19 20:31 20:31 22:44 Creatine Kinase 34 L 38 L CK-MB (CK-2) 0.31 Troponin I 0.023 11/06/19 11/07/19 11/07/19 22:44 05:05 05:05 Creatine Kinase 68 CK-MB (CK-2) 0.43 0.84 Troponin I 0.035 0.148 11/07/19 11/07/19 10:50 10:50 Creatine Kinase 74 CK-MB (CK-2) 0.77 Troponin I 0.127 Impressions: Chest X-Ray 11/06/19 20:14 IMPRESSION: New left basilar airspace and pleural disease.. Head CT 11/06/19 20:14 IMPRESSION: No acute intracranial process is identified. No adverse change from prior. The cause of the patient's neurologic deficit is not identified on this examination. Head MRI 11/07/19 00:00 IMPRESSION: 1. Acute lacunar infarct in the left posterior frontal white matter. 2. Chronic microvascular ischemic disease. Head CTA 11/07/19 00:36 IMPRESSION: 1. No major branch occlusion, flow limiting stenosis, or aneurysm is identified intracranially. 2. No cervical carotid or vertebral stenosis All quantitative and qualitative assessments of carotid bifurcation and proximal internal carotid artery stenosis are made at referencing the distal internal carotid artery. TECHNICAL DOCUMENTATION: Quality ID # 436: Final reports with documentation of one or more dose reduction techniques (e.g., Automated exposure control, adjustment of the mA and/or kV according to patient size, use of iterative reconstruction technique) copyright 2010 [email or web address]- All Rights Reserved Neck CTA 11/07/19 00:36 IMPRESSION: 1. No major branch occlusion, flow limiting stenosis, or aneurysm is identified intracranially. 2. No cervical carotid or vertebral stenosis All quantitative and qualitative assessments of carotid bifurcation and proximal internal carotid artery stenosis are made at referencing the distal internal carotid artery. TECHNICAL DOCUMENTATION: Quality ID # 436: Final reports with documentation of one or more dose reduction techniques (e.g., Automated exposure control, adjustment of the mA and/or kV according to patient size, use of iterative reconstruction technique) copyright 2010 [email or web address]- All Rights Reserved Assessment & Plan - Diagnosis (1) Acute cerebrovascular accident Is this a current diagnosis for this admission?: Yes Plan: Continues the aspirin Plavix and high-dose statin Most likely due to the uncontrolled diabetes Patient's a CTA is all negative We will wait for the echocardiogram Patient EKG a normal sinus rhythm (2) Seizure Is this a current diagnosis for this admission?: Yes Plan: We will switch the patient's p.o. Keppra patient is probably need a video EEG as an outpatient to further evaluate (3) Elevated troponin Is this a current diagnosis for this admission?: Yes Plan: Likely due to the seizures activity currently all stableFollow-up with the cardiology (4) Hyperglycemia Is this a current diagnosis for this admission?: Yes Plan: We will adjust the insulins dietary education's noncompliance with the patient's some main contributions (5) Coronary artery disease Qualifiers: Coronary Disease-Associated Artery/Lesion type: [place] artery [place] vs. transplanted heart: [place] heart Associated angina: without angina Qualified Code(s): I25.10 - Atherosclerotic heart disease of [place] coronary artery without angina pectoris Is this a current diagnosis for this admission?: Yes Plan: Follow-up with the cardiology (6) Gastroesophageal reflux disease Qualifiers: Esophagitis presence: without esophagitis Is this a current diagnosis for this admission?: Yes (7) Hyperlipidemia Qualifiers: Hyperlipidemia type: unspecified Is this a current diagnosis for this admission?: Yes Plan: Increase the statin so 80 mg due to the recent stroke and coronary artery disease (8) Hypertension Qualifiers: Hypertension type: essential hypertension Is this a current diagnosis for this admission?: Yes Plan: Currently all stable (9) Noncompliance Is this a current diagnosis for this admission?: Yes (10) Sleep apnea Qualifiers: Sleep apnea type: unspecified type Is this a current diagnosis for this admission?: Yes Plan: Continues uses CPAP (11) Bipolar disorder Qualifiers: Active/Remission status: currently active Is this a current diagnosis for this admission?: Yes (12) Pneumonia Qualifiers: Pneumonia type: due to unspecified organism Lung location: unspecified part of lung Is this a current diagnosis for this admission?: Yes - Time Time Spent with patient: 25-34 minutes Level of Care: IMCU Medications reviewed and adjusted accordingly: Yes Anticipated discharge: Home with Homehealth Within: within 24 hours - Plan Summary Plan Summary: See MD orders
--- NOTE | 2019-11-08 09:16 | EKG REPORT ---
SEVERITY:- BORDERLINE ECG - SINUS RHYTHM BORDERLINE T ABNORMALITIES, DIFFUSE LEADS : Confirmed by: Domo Pompa 08-Nov-2019 09:15:25
[2019-11-08] MEDS: INSULIN REG, HUMAN 100 UNIT/ML 3 ML VIAL (PYX) SUBCUT SCH ×4 (09:21→21:39)
[2019-11-08] MEDS: ARIPIPRAZOLE 5 MG TABLET PO SCH (09:30)
[2019-11-08] MEDS: CLOPIDOGREL BISULFATE 75 MG TABLET PO SCH (09:30)
[2019-11-08] MEDS: FAMOTIDINE 20 MG TABLET PO SCH ×2 (09:31→21:30)
[2019-11-08] MEDS: METOPROLOL SUCCINATE 25 MG TAB.SR.24H PO SCH (09:31)
[2019-11-08] MEDS: ISOSORBIDE MONONITRATE 60 MG TAB.ER.24H PO SCH (09:31)
[2019-11-08] MEDS: BENZTROPINE MESYLATE 1 MG TABLET PO SCH (09:31)
[2019-11-08] MEDS: LEVETIRACETAM 500 MG TABLET PO SCH ×2 (09:32→21:30)
[2019-11-08] MEDS: ASPIRIN 81 MG TABLET, ENT COATED PO SCH (09:32)
[2019-11-08] MEDS: ENOXAPARIN SODIUM INJ 40 MG/0.4 ML DISP.SYRIN SUBCUT SCH (09:32)
--- NOTE | 2019-11-08 11:43 | RADIOLOGY REPORT (SQ) ---
EXAM DESCRIPTION: CHEST 2 VIEWS IMAGES COMPLETED DATE/TIME: 11/08/2019 9:14 am REASON FOR STUDY: pnemonia COMPARISON: 11/06/2019 EXAM PARAMETERS: NUMBER OF VIEWS: two views TECHNIQUE: Digital Frontal and Lateral radiographic views of the chest acquired. RADIATION DOSE: NA LIMITATIONS: none FINDINGS: LUNGS AND PLEURA: Improved aeration left lower lobe. No residual infiltrate. MEDIASTINUM AND HILAR STRUCTURES: No masses or contour abnormalities. HEART AND VASCULAR STRUCTURES: Heart normal size. No evidence for failure. BONES: No acute findings. HARDWARE: None in the chest. OTHER: No other significant finding. IMPRESSION: Resolved pneumonia. TECHNICAL DOCUMENTATION: JOB ID: [id number] 2010 [email or web address]- All Rights Reserved Reading location - IP/workstation name: [email or web address]
[2019-11-08] MEDS: INSULIN GLARGINE,HUM.REC.ANLOG 1,000 UNIT/10 ML VIAL SUBCUT SCH ×2 (13:04→21:37)
--- NOTE | 2019-11-08 19:38 | Progress Note ---
Provider Note Provider Note: CARDIOLOGY PROGRESS NOTE by Dr. Sarai Castellanos on 11/08/2019 Subjective: Patient denies any chest pain or discomfort. There is no shortness of breath. There is no PND orthopnea. He denies any further headaches or visual problems. There is no arrhythmias seen on the monitor. There is no TIA CVA recurrence. Patient's MRI shows evidence of acute stroke. PHYSICAL EXAMINATION: The patient is moderately obese. In no acute distress. Selected Entries 11/08/19 17:12 Temperature 97.6 F Temperature Axillary Source Pulse Rate 80 Respiratory 18 Rate Blood Pressure 121/66 Blood Pressure 84 Mean BP Location Left Arm BP Position Supine O2 Sat by Pulse 96 Oximetry Oxygen Delivery Room Air Method HEAD: Is atraumatic normocephalic. EYES: Pupils are equal round regular reactive light accommodation. Extraocular movements are normal. There is no conjunctival pallor. There is no scleral icterus. Ears: Tympanic membranes are intact. External auditory canals are clear. NOSE: There is no deviated nasal septum. There is no inflammation of nasal mucous membrane. MOUTH: Mucous membranes of mouth are moist. Tongue are moist. There is no ulcers. There is no bleeding from the gums. THROAT: There is no redness of the oropharynx. There is no exudates. SKIN: There is no skin rashes. There is no petechia or ecchymosis. There is no skin lesions. NECK: Supple. There is no JVD. Carotids are equal there is no bruit. There is no lymphadenopathy. There is no goiter. There is no accessory muscle respiration use. Trachea is central. LUNGS: Is clear to auscultation percussion without any rhonchi rales or wheezing. HEART: S1-S2 is heard. There is no S3 gallop. There is no S4 gallop. Systolic murmur left sternal border and the apex there is no rub. ABDOMEN: Is obese. Nontender. There is no paraspinal megaly. Bowel sounds are well heard. EXTREMITIES: Femorals are slightly diminished. Leg pulses are well felt. There is no pedal edema. There is no DVT or cellulitis. There is no calf tenderness. There is no cyanosis or clubbing. CAREER BASED INTERVENTION COORDINATOR: The patient is conscious awake alert oriented x3 with no focal deficits. PSYCHIATRIC: The patient judgment insight are intact his affect is normal. Labs- All tests 24 hr 11/08/19 11/08/19 11/08/19 04:12 04:12 04:12 WBC 8.9 RBC 5.08 Hgb 15.2 Hct 43.6 MCV 86 MCH 29.9 MCHC 34.8 RDW 13.4 Plt Count 220 Lymph % (Auto) 28.3 Howell % (Auto) 6.6 Eos % (Auto) 2.3 Baso % (Auto) 0.8 Absolute Neuts (auto) 5.5 Absolute Lymphs (auto) 2.5 Absolute Monos (auto) 0.6 Absolute Eos (auto) 0.2 Absolute Basos (auto) 0.1 Seg Neutrophils % 62.0 Sodium 134.5 L Potassium 3.9 Chloride 102 Carbon Dioxide 25 Anion Gap 8 BUN 11 Creatinine 0.74 Est GFR ( Amer) > 60 Est GFR (MDRD) Non-Af > 60 Glucose 257 H POC Glucose Hemoglobin A1c % 13.3 H Calcium 8.6 Total Bilirubin 0.5 Direct Bilirubin 0.0 Neonat Total Bilirubin Not Reportable Neonat Direct Bilirubin Not Reportable Neonat Indirect Bili Not Reportable AST 24 ALT 25 Alkaline Phosphatase 67 Total Protein 6.1 L Albumin 3.4 L Triglycerides Cholesterol LDL Cholesterol Direct VLDL Cholesterol HDL Cholesterol 11/08/19 11/08/19 11/08/19 04:12 08:08 12:46 WBC RBC Hgb Hct MCV MCH MCHC RDW Plt Count Lymph % (Auto) Howell % (Auto) Eos % (Auto) Baso % (Auto) Absolute Neuts (auto) Absolute Lymphs (auto) Absolute Monos (auto) Absolute Eos (auto) Absolute Basos (auto) Seg Neutrophils % Sodium Potassium Chloride Carbon Dioxide Anion Gap BUN Creatinine Est GFR ( Amer) Est GFR (MDRD) Non-Af Glucose POC Glucose 251 H 326 H Hemoglobin A1c % Calcium Total Bilirubin Direct Bilirubin Neonat Total Bilirubin Neonat Direct Bilirubin Neonat Indirect Bili AST ALT Alkaline Phosphatase Total Protein Albumin Triglycerides 230 H Cholesterol 131.39 LDL Cholesterol Direct 72 VLDL Cholesterol 46.0 H HDL Cholesterol 33 L 11/08/19 11/08/19 17:10 21:36 WBC RBC Hgb Hct MCV MCH MCHC RDW Plt Count Lymph % (Auto) Howell % (Auto) Eos % (Auto) Baso % (Auto) Absolute Neuts (auto) Absolute Lymphs (auto) Absolute Monos (auto) Absolute Eos (auto) Absolute Basos (auto) Seg Neutrophils % Sodium Potassium Chloride Carbon Dioxide Anion Gap BUN Creatinine Est GFR ( Amer) Est GFR (MDRD) Non-Af Glucose POC Glucose 285 H 250 H Hemoglobin A1c % Calcium Total Bilirubin Direct Bilirubin Neonat Total Bilirubin Neonat Direct Bilirubin Neonat Indirect Bili AST ALT Alkaline Phosphatase Total Protein Albumin Triglycerides Cholesterol LDL Cholesterol Direct VLDL Cholesterol HDL Cholesterol Chest X-Ray 11/06/19 20:14 IMPRESSION: New left basilar airspace and pleural disease.. Head CT 11/06/19 20:14 IMPRESSION: No acute intracranial process is identified. No adverse change from prior. The cause of the patient's neurologic deficit is not identified on this examination. Head MRI 11/07/19 00:00 IMPRESSION: 1. Acute lacunar infarct in the left posterior frontal white matter. 2. Chronic microvascular ischemic disease. Head CTA 11/07/19 00:36 IMPRESSION: 1. No major branch occlusion, flow limiting stenosis, or aneurysm is identified intracranially. 2. No cervical carotid or vertebral stenosis All quantitative and qualitative assessments of carotid bifurcation and proximal internal carotid artery stenosis are made at referencing the distal internal carotid artery. TECHNICAL DOCUMENTATION: Quality ID # 436: Final reports with documentation of one or more dose reduction techniques (e.g., Automated exposure control, adjustment of the mA and/or kV according to patient size, use of iterative reconstruction technique) copyright 2011 [employer]- All Rights Reserved Neck CTA 11/07/19 00:36 IMPRESSION: 1. No major branch occlusion, flow limiting stenosis, or aneurysm is identified intracranially. 2. No cervical carotid or vertebral stenosis All quantitative and qualitative assessments of carotid bifurcation and proximal internal carotid artery stenosis are made at referencing the distal internal carotid artery. TECHNICAL DOCUMENTATION: Chest X-Ray 11/08/19 00:00 IMPRESSION: Resolved pneumonia. IMPRESSION/RECOMMENDATION: 1. CVA by MRI. Patient at present has no residuals of defects he has no head ache no visual problems. 2. Elevated troponin I. This is a type II OK secondary to supply demand mismatch this is due to the patient's CVA and seizures. No definite evidence of non-ST relation OK all by the patient having underlying coronary artery disease the patient is knows his anginal symptoms typical or atypical, and no major EKG changes. This is most likely secondary to supply demand mismatch secondary to troponin leak due to the patient's seizures. But in view of the patient's underlying coronary artery disease would strongly recommend to increase the patient's Imdur and the beta-rula. Later, since the patient had a CVA, 4 to 6 weeks later would recommend that the patient have a IV Lexiscan Cardiolite stress test. This can be done as an outpatient. 3. Hyperglycemia: Continue antidiabetic treatment. 4. Seizure disorder: New onset seizures. CAREER BASED INTERVENTION COORDINATOR work-up so far is negative. Further treatment and work-up as per attending provider on the case. Cardiology point of view, Ranexa has known to cause seizures. Hence would discontinue Ranexa 5. Diabetes mellitus: Continue antidiabetic treatment as per attending physician. 6. Coronary artery disease: History of distal right coronary artery stent. Patent stent site by cardiac catheterization 2019 although this showed that there is a distal significant LAD lesion, with a subtended territory distal to the stenosis being very small. Ramirez would recommend maximizing the patient's medical therapy towards coronary artery disease. Also strongly recommend aggressive risk factor modification. As mentioned earlier would discontinue the patient's Ranexa. Continue aspirin and Plavix.. 7. Hypertension: Blood pressure seems to be fairly well controlled. 8. Bipolar disorder: Stable in remission. Patient reviewed. Medical regimen and management plan discussed with attending provider. Medical decision making is a moderate complexity. 40 minutes spent with patient more than 50% time spent in direct patient care. Will follow.
[2019-11-08] MEDS: CEFTRIAXONE 2 GM/D5W RTU 2 GM/50 ML RTUPB IV SCH (21:30)
--- NOTE | 2019-11-08 21:57 | XCELERA REPORT ---
[address] [address] Transthoracic Echocardiogram Report Name: YURY BAZAN Age: 59 yrs Gender: Male : 1960 Patient Status: Inpatient Patient Location: [facility]^A Study Date: 11/07/2019 03:15 PM Height: 69 in Weight: 261 lb BSA: 2.3 m2 Procedure: A two-dimensional transthoracic echocardiogram with color flow and Doppler was performed. The study was technically difficult with many images being suboptimal in quality. The study was technically limited with all images being suboptimal in quality. Reason For Study: cad History: CAD. Ordering Physician: KAMALA Performed By: Jaida Dunn Interpretation Summary The left ventricle is normal in size. There is mild concentric left ventricular hypertrophy. LV EF is 65% Left ventricular systolic function is normal. Doppler measurements suggest impaired left ventricular relaxation, which is associated with grade I/IV or mild diastolic dysfunction The left ventricular wall motion is normal. There is no thrombus. No ASD,VSD,or PFO seen The right ventricle is grossly normal size. The right atrium is normal. The left atrial size is normal. There is no evidence of mitral valve prolapse. There is no vegetation seen on the mitral valve. There is no mitral valve stenosis. There is a trace amount of mitral regurgitation There is no aortic valvular vegetation. There is no aortic valve stenosis There is no LVOT obstruction. No aortic regurgitation is present. There is no tricuspid stenosis. There is a trace to mild amount of tricuspid regurgitation There is mild pulmonary hypertension by echo RVSP is 34 to 39 mm of Hg , wih RA mean of 5 to 10. There is no pulmonic valvular stenosis. There is no pulmonic valvular regurgitation. The aortic root is normal size. The inferior vena cava appeared normal and decreased > 50% with respiration (RAP 5-10 mmHg) There is no pericardial effusion. MMode/2D Measurements & Calculations RVDd: 2.9 cm LVIDd: 4.9 cm FS: 30.7 % Ao root diam: 3.6 cm IVSd: 1.2 cm LVIDs: 3.4 cm EDV(Teich): 113.9 ml Ao root area: 10.4 cm2 LVPWd: 1.2 cm ESV(Teich): 47.8 ml LA dimension: 3.6 cm EF(Teich): 58.0 % Doppler Measurements & Calculations MV E max penelope: MV P1/2t max penelope: Ao V2 max: LV V1 max P.0 cm/sec 65.7 cm/sec 117.1 cm/sec 4.2 mmHg MV A max penelope: MV P1/2t: 60.8 msec Ao max P.5 mmHg LV V1 max: 72.3 cm/sec MVA(P1/2t): 3.6 cm2 102.8 cm/sec MV E/A: 0.82 MV dec slope: 316.5 cm/sec2 MV dec time: 0.18 sec PA V2 max: TR max penelope: MV P1/2t-pr_phl: 80.0 cm/sec 270.2 cm/sec 60.8 msec PA max PG: TR max P.2 mmHg 2.6 mmHg Left Ventricle The left ventricle is normal in size. There is mild concentric left ventricular hypertrophy. LV EF is 65%. Left ventricular systolic function is normal. Doppler measurements suggest impaired left ventricular relaxation, which is associated with grade I/IV or mild diastolic dysfunction. The left ventricular wall motion is normal. There is no thrombus. No ASD,VSD,or PFO seen. Right Ventricle The right ventricle is grossly normal size. The right ventricle is not well visualized secondary to technical limitations. Atria The right atrium is normal. The left atrial size is normal. Mitral Valve There is no evidence of mitral valve prolapse. There is no vegetation seen on the mitral valve. There is no mitral valve stenosis. There is a trace amount of mitral regurgitation. Aortic Valve There is no aortic valvular vegetation. There is no aortic valve stenosis. There is no LVOT obstruction. No aortic regurgitation is present. Tricuspid Valve There is no tricuspid stenosis. There is a trace to mild amount of tricuspid regurgitation. There is mild pulmonary hypertension by echo. RVSP is 34 to 39 mm of Hg , wih RA mean of 5 to 10. Pulmonic Valve There is no pulmonic valvular stenosis. There is no pulmonic valvular regurgitation. Great Vessels The aortic root is normal size. The inferior vena cava appeared normal and decreased > 50% with respiration (RAP 5-10 mmHg). Effusions There is no pericardial effusion. : Sarai Thompson
[2019-11-08] MEDS ORDERED: LATANOPROST 0.005% OPH SOLN 2.5 ML OU SCH (22:00)
[2019-11-08] MEDS ORDERED: ATORVASTATIN CALCIUM 80 MG TABLET PO SCH (22:00)
[2019-11-08] MEDS ORDERED: ATORVASTATIN CALCIUM 40 MG TABLET PO SCH (22:00)
[2019-11-09 04:12] VITALS: BP 143/73
[2019-11-09] MEDS: INSULIN REG, HUMAN 100 UNIT/ML 3 ML VIAL (PYX) SUBCUT SCH ×2 (07:29→11:42)
[2019-11-09] MEDS: BENZTROPINE MESYLATE 1 MG TABLET PO SCH (09:15)
[2019-11-09] MEDS: ARIPIPRAZOLE 5 MG TABLET PO SCH (09:15)
[2019-11-09] MEDS: LEVETIRACETAM 500 MG TABLET PO SCH (09:15)
[2019-11-09] MEDS: METOPROLOL SUCCINATE 25 MG TAB.SR.24H PO SCH (09:15)
[2019-11-09] MEDS: FAMOTIDINE 20 MG TABLET PO SCH (09:16)
[2019-11-09] MEDS: ASPIRIN 81 MG TABLET, ENT COATED PO SCH (09:16)
[2019-11-09] MEDS: CLOPIDOGREL BISULFATE 75 MG TABLET PO SCH (09:16)
[2019-11-09] MEDS: INSULIN GLARGINE,HUM.REC.ANLOG 1,000 UNIT/10 ML VIAL SUBCUT SCH (09:17)
[2019-11-09] MEDS: ISOSORBIDE MONONITRATE 60 MG TAB.ER.24H PO SCH (09:17)
[2019-11-09] MEDS: ENOXAPARIN SODIUM INJ 40 MG/0.4 ML DISP.SYRIN SUBCUT SCH (09:17)
--- NOTE | 2019-11-09 12:02 | PDOC DISCHARGE SUMMARY ---
Impression - Admit/DC Date/PCP Admission Date/Primary Care Provider: 11/07/19 01:09 DONALD CAMARGO MD Discharge Date: 11/09/19 - Discharge Diagnosis (1) Acute cerebrovascular accident Is this a current diagnosis for this admission?: Yes (2) Seizure Is this a current diagnosis for this admission?: Yes (3) Elevated troponin Is this a current diagnosis for this admission?: Yes (4) Hyperglycemia Is this a current diagnosis for this admission?: Yes (5) Coronary artery disease Is this a current diagnosis for this admission?: Yes (6) Gastroesophageal reflux disease Is this a current diagnosis for this admission?: Yes (7) Hyperlipidemia Is this a current diagnosis for this admission?: Yes (8) Hypertension Is this a current diagnosis for this admission?: Yes (9) Noncompliance Is this a current diagnosis for this admission?: Yes (10) Sleep apnea Is this a current diagnosis for this admission?: Yes (11) Bipolar disorder Is this a current diagnosis for this admission?: Yes (12) Pneumonia Is this a current diagnosis for this admission?: Yes - Additional Information Discharge Diet: Diabetic Referrals: VIVIANE WATERS MD [NO LOCAL MD] - 11/16/19 9:00 am JAMAAL HOLCOMB MD [ACTIVE STAFF] - (left message) DONALD CAMARGO MD [Primary Care Provider] - 11/12/19 12:00 pm (f/u neurolgy make appt f/u dr diamond next wk ) Prescriptions: Aspirin [Ecotrin 81 mg EC Tablet] 81 mg PO DAILY #30 tabec Isosorbide Mononitrate [Imdur 60 mg Tablet.er] 60 mg PO DAILY #30 tab.er.24h Cephalexin Monohydrate [Keflex 500 mg Capsule] 500 mg PO TID #15 capsule Levetiracetam [Keppra 500 mg Tablet] 500 mg PO Q12 #60 tablet Insulin Glargine,Hum.rec.anlog [Lantus Insulin 100 Unit/1 ml 10 ml] 40 unit SUBCUT Q12 #3 unit Atorvastatin Calcium [Lipitor 80 mg Tablet] 80 mg PO QHS #30 tablet Famotidine [Pepcid 20 mg Tablet] 20 mg PO Q12 #60 tablet Clopidogrel Bisulfate [Plavix 75 mg Tablet] 75 mg PO DAILY #30 tablet Home Medications: Benztropine Mesylate [Cogentin 1 mg Tablet] 0.5 mg PO DAILY 03/09/18 Latanoprost [Xalatan 0.005% Oph Soln 2.5 ml] 1 drop OU QHS 03/09/18 Metoprolol Succinate [Toprol Xl 25 mg Tab.sr] 25 mg PO DAILY #30 tab.sr.24h 08/22/19 Aripiprazole [Abilify 5 mg Tablet] 5 mg PO DAILY 11/07/19 Aspirin [Ecotrin 81 mg EC Tablet] 81 mg PO DAILY #30 tabec 11/09/19 Atorvastatin Calcium [Lipitor 80 mg Tablet] 80 mg PO QHS #30 tablet 11/09/19 Cephalexin Monohydrate [Keflex 500 mg Capsule] 500 mg PO TID #15 capsule 11/09/19 Clopidogrel Bisulfate [Plavix 75 mg Tablet] 75 mg PO DAILY #30 tablet 11/09/19 Famotidine [Pepcid 20 mg Tablet] 20 mg PO Q12 #60 tablet 11/09/19 Insulin Glargine,Hum.rec.anlog [Lantus Insulin 100 Unit/1 ml 10 ml] 40 unit SUBCUT Q12 #3 unit 11/09/19 Isosorbide Mononitrate [Imdur 60 mg Tablet.er] 60 mg PO DAILY #30 tab.er.24h 11/09/19 Levetiracetam [Keppra 500 mg Tablet] 500 mg PO Q12 #60 tablet 11/09/19 History of Present Illiness History of Present Illness: YURY BAZAN is a 59 year old male This is a 59-year-old male with a history of the type 2 diabetes mostly insulin resistance noncompliance history of the coronary artery disease status post stent placement history of the hypertensions hyperlipidemia multiple other comorbidity came to the emergency department by EMSWith the complaining of a headache and blurry vision Patient's not his yesterday's was complaining of some mild headache and patient's blurry vision patient is to drink some Mountain Dew yesterday before this episode happens patient's blood sugar was in the 500 rangeAnd patient was confused In the emergency department with a EMS patient also have a tonic-clonic seizures activity patient O2 sat dropped to up to 75%'s but back to the normal patient initial CT head was negative patient was giving the Keppra and insulin drip in the beginning ER physicians call me to admit the patient is because of the new onset of the seizures with questionable CVA and hyperglycemia Patient's CTA of the head and neck was negative for any clots When I saw the patient in the floor alert awake oriented x4 denied any headache no chest pain no short of breath Patient initial troponin was negative subsequent troponin goes up patient have a coronary artery disease status post stent placement at [facility] Patient having no weakness no blurry vision today Patient at this point we order the MRI of the head and consult the cardiology put the patient on aspirin Plavix and statin Hospital Course Hospital Course: This is a 59-year-old male with a type 2 diabetes mellitus coronary artery disease status post stent placement and multiple other comorbidity top of that very noncomplianceCame to the emergency department with the confusion and the vision problems patient's blood sugar was 500 range In the ER initial CT head and other blood work was all stable except the blood sugar patient admitting in the hospital for further evaluations Patient underwent for the MRI of the head with so the left posterior frontal lacunar infarct Patient also have a new onset of the seizures in the ER which is most likely related to the ongoing stroke with the hypoglycemia patient was put on a Keppra IV Since her troponin is also elevated and according to the consult cardiology Dr. DIAMOND most likely related to the seizures but unlikely to be related to any acute coronary syndrome and suggest to follow outpatient Since denied any chest pain no short of breath patient was put on a aspirin Plavix Since Ranexa was discontinued his by cardiology due to the potential increase the seizures Patient is a EEG done which is also normal Patient's at this point echocardiogram was done also stable Patient is back to the baseline's alert awake oriented patient is walking the hallway without any problem physical therapy evaluations done no need for any physical therapy Have extensive diabetic education's and the dietary education was given in the hospital Readjust all the medications discussed with the patient's to compliance about diet exercise Follow outpatients Dr. Sher in 1 week Also refer to the neurology outpatients for further detail video EEG And was put on a Keppra 500 mg p.o. twice a day until neurology evaluations done Discussed with the patient about seizures precautions fall precautions medication side effect We will follow the patient in a 1 week Physical Exam Vital Signs: Temp Pulse Resp BP Pulse Ox 97.6 F 68 16 143/73 H 98 06 03:33 06/05/20 08:00 11/09/19 08:00 11/09/19 08:00 11/09/19 08:00 Intake & Output 11/08/19 11/09/19 11/10/19 06:59 06:59 06:59 Intake Total 920 1462 Output Total 1000 250 Balance -80 1212 Weight 116.5 kg 117 kg General appearance: PRESENT: no acute distress, well-developed, well-nourished Head exam: PRESENT: atraumatic, normocephalic Eye exam: PRESENT: conjunctiva pink, EOMI, PERRLA. ABSENT: scleral icterus Ear exam: PRESENT: normal external ear exam Mouth exam: PRESENT: moist, tongue midline Neck exam: ABSENT: carotid bruit, JVD, lymphadenopathy, thyromegaly Respiratory exam: PRESENT: clear to auscultation tricia. ABSENT: rales, rhonchi, wheezes Cardiovascular exam: PRESENT: RRR. ABSENT: diastolic murmur, rubs, systolic murmur Pulses: PRESENT: normal dorsalis pedis pul Vascular exam: PRESENT: normal capillary refill GI/Abdominal exam: PRESENT: normal bowel sounds, soft. ABSENT: distended, guarding, mass, organolmegaly, rebound, tenderness Rectal exam: PRESENT: deferred Extremities exam: PRESENT: full ROM. ABSENT: calf tenderness, clubbing, pedal edema Neurological exam: PRESENT: alert, awake, oriented to person, oriented to place, oriented to time, oriented to situation, CN II-XII grossly intact. ABSENT: motor sensory deficit Psychiatric exam: PRESENT: appropriate affect, normal mood. ABSENT: homicidal ideation, suicidal ideation Skin exam: PRESENT: dry, intact, warm. ABSENT: cyanosis, rash Results Laboratory Results: WBC 8.9 10^3/uL (4.0-10.5) 11/08/19 04:12 RBC 5.08 10^6/uL (4.35-5.55) 11/08/19 04:12 Hgb 15.2 g/dL (13.5-17.0) 11/08/19 04:12 Hct 43.6 % (37.9-51.0) 11/08/19 04:12 MCV 86 fl (80-97) 11/08/19 04:12 MCH 29.9 pg (27.0-33.4) 11/08/19 04:12 MCHC 34.8 g/dL (32.0-36.0) 11/08/19 04:12 RDW 13.4 % (11.5-14.0) 11/08/19 04:12 Plt Count 220 10^3/uL (150-450) 11/08/19 04:12 Lymph % (Auto) 28.3 % (13-45) 11/08/19 04:12 Blount % (Auto) 6.6 % (3-13) 11/08/19 04:12 Eos % (Auto) 2.3 % (0-6) 11/08/19 04:12 Baso % (Auto) 0.8 % (0-2) 11/08/19 04:12 Absolute Neuts (auto) 5.5 10^3/uL (1.7-8.2) 11/08/19 04:12 Absolute Lymphs (auto) 2.5 10^3/uL (0.5-4.7) 11/08/19 04:12 Absolute Monos (auto) 0.6 10^3/uL (0.1-1.4) 11/08/19 04:12 Absolute Eos (auto) 0.2 10^3/uL (0.0-0.6) 11/08/19 04:12 Absolute Basos (auto) 0.1 10^3/uL (0.0-0.2) 11/08/19 04:12 Seg Neutrophils % 62.0 % (42-78) 11/08/19 04:12 PT 13.5 SEC (11.4-15.4) 11/06/19 20:31 INR 1.03 11/06/19 20:31 APTT 28.2 SEC (23.5-35.8) 11/06/19 20:31 Carbonic Acid 1.37 mmol/L (1.05-1.35) H 11/06/19 22:22 HCO3/H2CO3 Ratio 19:1 11/06/19 22:22 ABG pH 7.39 (7.35-7.45) 11/06/19 22:22 ABG pCO2 45.6 mmHg (35-45) H 11/06/19 22:22 ABG pO2 82.4 mmHg (80-100) 11/06/19 22:22 ABG HCO3 27.1 mmol/L (20-24) H 11/06/19 22:22 ABG Total CO2 28.5 mmol/L (23-27) H 11/06/19 22:22 ABG O2 Saturation 96.0 % (94-98) 11/06/19 22:22 ABG Base Excess 1.6 mmol/L 11/06/19 22:22 FiO2 4L 11/06/19 22:22 Sodium 134.5 mmol/L (137-145) L 11/08/19 04:12 Potassium 3.9 mmol/L (3.6-5.0) 11/08/19 04:12 Chloride 102 mmol/L (98-107) 11/08/19 04:12 Carbon Dioxide 25 mmol/L (22-30) 11/08/19 04:12 Anion Gap 8 (5-19) 11/08/19 04:12 BUN 11 mg/dL (7-20) 11/08/19 04:12 Creatinine 0.74 mg/dL (0.52-1.25) 11/08/19 04:12 Est GFR ( Amer) > 60 (>60) 11/08/19 04:12 Est GFR (MDRD) Non-Af > 60 (>60) 11/08/19 04:12 Glucose 257 mg/dL (75-110) H 11/08/19 04:12 POC Glucose 256 mg/dL (70-110) H 11/09/19 07:14 Hemoglobin A1c % 13.3 % (4.7-6.0) H 11/08/19 04:12 Calcium 8.6 mg/dL (8.4-10.2) 11/08/19 04:12 Total Bilirubin 0.5 mg/dL (0.2-1.3) 11/08/19 04:12 Direct Bilirubin 0.0 mg/dL (0.0-0.4) 11/08/19 04:12 Neonat Total Bilirubin Not Reportable 11/08/19 04:12 Neonat Direct Bilirubin Not Reportable 11/08/19 04:12 Neonat Indirect Bili Not Reportable 11/08/19 04:12 AST 24 U/L (17-59) 11/08/19 04:12 ALT 25 U/L (<50) 11/08/19 04:12 Alkaline Phosphatase 67 U/L (38-126) 11/08/19 04:12 Creatine Kinase 74 U/L (55-170) 11/07/19 10:50 CK-MB (CK-2) 0.77 ng/mL (<4.55) 11/07/19 10:50 Troponin I 0.127 ng/mL 11/07/19 10:50 Total Protein 6.1 g/dL (6.3-8.2) L 11/08/19 04:12 Albumin 3.4 g/dL (3.5-5.0) L 11/08/19 04:12 Triglycerides 230 mg/dL (<150) H 11/08/19 04:12 Cholesterol 131.39 mg/dL (0-200) 11/08/19 04:12 LDL Cholesterol Direct 72 mg/dL (<100) 11/08/19 04:12 VLDL Cholesterol 46.0 mg/dL (10-31) H 11/08/19 04:12 HDL Cholesterol 33 mg/dL (>40) L 11/08/19 04:12 Lipase 204.1 U/L (23-300) 11/06/19 20:31 Vitamin B12 336.0 pg/mL (239-931) 11/07/19 09:23 TSH 0.69 uIU/mL (0.47-4.68) 11/07/19 09:23 Prolactin 7.2 ng/mL (3.7-17.9) 11/07/19 09:23 Urine Color STRAW 11/06/19 22:37 Urine Appearance CLEAR 11/06/19 22:37 Urine pH 7.0 (5.0-9.0) 11/06/19 22:37 Ur Specific [place] 1.024 11/06/19 22:37 Urine Protein 30 mg/dL (NEGATIVE) H 11/06/19 22:37 Urine Glucose (UA) >=500 mg/dL (NEGATIVE) H 11/06/19 22:37 Urine Ketones NEGATIVE mg/dL (NEGATIVE) 11/06/19 22:37 Urine Blood NEGATIVE (NEGATIVE) 11/06/19 22:37 Urine Nitrite (Reflex) NEGATIVE (NEGATIVE) 11/06/19 22:37 Urine Bilirubin NEGATIVE (NEGATIVE) 11/06/19 22:37 Urine Urobilinogen NEGATIVE mg/dL (<2.0) 11/06/19 22:37 Leukocyte Esterase Rfl NEGATIVE (NEGATIVE) 11/06/19 22:37 Urine RBC (Auto) 1 /HPF 11/06/19 22:37 Urine WBC (Reflex) 1 /HPF 11/06/19 22:37 Urine Mucus (Auto) RARE /LPF 11/06/19 22:37 Urine Ascorbic Acid 20 (NEGATIVE) H 11/06/19 22:37 11/06/19 11/06/19 11/07/19 20:31 22:44 05:05 CK-MB (CK-2) 0.31 0.43 0.84 Troponin I 0.023 0.035 0.148 11/07/19 10:50 CK-MB (CK-2) 0.77 Troponin I 0.127 Impressions: Chest X-Ray 11/06/19 20:14 IMPRESSION: New left basilar airspace and pleural disease.. Head CT 11/06/19 20:14 IMPRESSION: No acute intracranial process is identified. No adverse change from prior. The cause of the patient's neurologic deficit is not identified on this examination. Head MRI 11/07/19 00:00 IMPRESSION: 1. Acute lacunar infarct in the left posterior frontal white matter. 2. Chronic microvascular ischemic disease. Head CTA 11/07/19 00:36 IMPRESSION: 1. No major branch occlusion, flow limiting stenosis, or aneurysm is identified intracranially. 2. No cervical carotid or vertebral stenosis All quantitative and qualitative assessments of carotid bifurcation and proximal internal carotid artery stenosis are made at referencing the distal internal carotid artery. TECHNICAL DOCUMENTATION: Quality ID # 436: Final reports with documentation of one or more dose reduction techniques (e.g., Automated exposure control, adjustment of the mA and/or kV according to patient size, use of iterative reconstruction technique) copyright 2011 [employer]- All Rights Reserved Neck CTA 11/07/19 00:36 IMPRESSION: 1. No major branch occlusion, flow limiting stenosis, or aneurysm is identified intracranially. 2. No cervical carotid or vertebral stenosis All quantitative and qualitative assessments of carotid bifurcation and proximal internal carotid artery stenosis are made at referencing the distal internal carotid artery. TECHNICAL DOCUMENTATION: Quality ID # 436: Final reports with documentation of one or more dose reduction techniques (e.g., Automated exposure control, adjustment of the mA and/or kV according to patient size, use of iterative reconstruction technique) copyright 2011 [employer]- All Rights Reserved Chest X-Ray 11/08/19 00:00 IMPRESSION: Resolved pneumonia. Plan Time Spent: Greater than 30 Minutes - Follow in office 1 week follow outpatients neurology and cardiology Stroke Is this a Stroke Patient?: Yes Stroke Pt being discharged on Anti-thrombolytic therapy?: Yes Stroke Pt being discharged on Anti-coagulation therapy?: No Reason(s) for not prescribing Anti-coagulation therapy:: Not indicated Stroke Pt being discharged on Statins?: Yes Acute Heart Failure - Is this a Heart Failure Patient?: No
== END 2019-11-09 14:17 | disposition home health service (06) | DRG 64 ==
LOC: ER 20:13 → EH 11-07 01:09 → 3N 11-07 02:40
PROVIDERS: ADMIT Family Medicine; ATTEND Family Medicine
DX: I63.81 Other cerebral infarction due to occlusion or stenosis of small artery (principal); J18.9 Pneumonia, unspecified organism; R56.9 Unspecified convulsions; I25.10 Atherosclerotic heart disease of native coronary artery without angina pectoris; Z95.5 Presence of coronary angioplasty implant and graft; E78.5 Hyperlipidemia, unspecified; E11.65 Type 2 diabetes mellitus with hyperglycemia; H53.8 Other visual disturbances; I25.2 Old myocardial infarction; J44.9 Chronic obstructive pulmonary disease, unspecified; M19.90 Unspecified osteoarthritis, unspecified site; F31.9 Bipolar disorder, unspecified; G47.30 Sleep apnea, unspecified; R79.89 Other specified abnormal findings of blood chemistry; Z87.891 Personal history of nicotine dependence; Z82.49 Family history of ischemic heart disease and other diseases of the circulatory system; Z83.3 Family history of diabetes mellitus; Z79.4 Long term (current) use of insulin; Z91.14 Patient's other noncompliance with medication regimen; Z91.018 Allergy to other foods; Z79.82 Long term (current) use of aspirin
CPT/HCPCS: 36415; 70450; 70496; 70498; 70551; 71045; 71046; 80053; 80061; 81001; 82550; 82553; 82607; 82803; 82962; 83036; 83690; 84146; 84443; 84484; 85025; 85610; 85730; 87040; 87086; 93005; 93010; 93306; 94660; 95819; 96365; 96375; 99291; 99292; J0696; J1650; J1815; J1953; J3490

== ENCOUNTER 2020-02-24 21:43 | Emergency (ER) | payer MEDICARE, MEDICAID ==
[2020-02-24] MEDS ORDERED: FAMOTIDINE 20 MG TABLET PO ONE (22:16)
[2020-02-24] MEDS ORDERED: ASPIRIN 81 MG TABLET, CHEWABLE PO ONE (22:16)
[2020-02-24] MEDS ORDERED: ONDANSETRON HCL INJ/PF 4 MG/2 ML SDV IV ONE (22:17)
[2020-02-24] MEDS ORDERED: FENTANYL CITRATE INJ/PF 100 MCG/2 ML AMPUL IV ONE (22:17)
--- NOTE | 2020-02-24 22:19 | ER Document Report ---
ED General - General Chief Complaint: Chest Pain Stated Complaint: CHEST PAIN Time Seen by Provider: 02/24/20 22:05 Primary Care Provider: DONALD CAMARGO MD [ACTIVE STAFF] - Follow up as needed Notes: Patient is a 59-year-old male that comes emergency department for chief complaint of left-sided chest pain. When I ask where his chest pain is located, he points to his left upper abdomen. Patient states he has had worsening symptoms for about 3 days, he states the pain intermittent becomes very sharp. He comes by EMS. Patient denies vomiting, nausea, fever, shortness of breath, radiation into the back or lower abdomen. He states he is having "rockhard bowel movements" with a little bit of bright red blood mixed in. Patient has a complicated medical history including an MT approximately 3 months ago where he had initially 2 stents placed, one stent collapsed, he had a balloon placed, he is now wearing a LifeVest. He follows with charge account identification clerk Dr. Castellanos, his primary care is in [place]. Patient states he took 2 Colace stool softeners earlier today because of his constipation but did not have any results. TRAVEL OUTSIDE OF THE [place] IN LAST 30 DAYS: No - Related Data Allergies/Adverse Reactions: No Known Drug Allergies Allergy (Verified 08/03/18 12:37) Cheese Allergy (Uncoded 08/03/18 12:37) VINEGAR Allergy (Uncoded 08/03/18 12:37) Hives Past Medical History - General Information source: Patient - Social History Smoking Status: Never Smoker Drug Abuse: None Lives with: Family Family History: Reviewed & Not Pertinent, Arthritis, CAD, DM, Hyperlipidemia, Hypertension - Past Medical History Cardiac Medical History: Reports: Hx Coronary Artery Disease, Hx Heart Attack - x3, Hx Hypercholesterolemia, Hx Hypertension Pulmonary Medical History: Reports: Hx Asthma, Hx COPD, Hx Sleep Apnea Neurological Medical History: Denies: Hx Parkinson's Disease Endocrine Medical History: Reports: Hx Diabetes Mellitus Type 2 Renal/ Medical History: Denies: Hx Peritoneal Dialysis GI Medical History: Reports: Hx Gastroesophageal Reflux Disease Musculoskeletal Medical History: Reports Hx Arthritis, Reports Hx Musculoskeletal Deformity, Reports Hx Musculoskeletal Trauma Psychiatric Medical History: Reports: Hx Bipolar Disorder, Hx Depression, Hx Schizophrenia Traumatic Medical History: Reports: Hx Fractures Past Surgical History: Reports: Hx Cardiac Catheterization, Hx Cardiac Surgery - stent x1, Hx Coronary Stent, Hx Orthopedic Surgery - Bilateral total knee, Hx Tonsillectomy - Immunizations Immunizations up to date: Yes Hx Diphtheria, Pertussis, Tetanus Vaccination: Yes - 2013 Hx Pneumococcal Vaccination: 07/28/13 Review of Systems - Review of Systems Constitutional: No symptoms reported EENT: No symptoms reported Cardiovascular: See HPI Respiratory: No symptoms reported Gastrointestinal: See HPI Genitourinary: No symptoms reported Male Genitourinary: No symptoms reported Musculoskeletal: No symptoms reported Skin: No symptoms reported Hematologic/Lymphatic: No symptoms reported Neurological/Psychological: No symptoms reported Physical Exam - Vital signs Vitals: Resp Pulse Ox 24 H 100 02/24/20 21:48 02/24/20 21:48 - Notes Notes: GENERAL: Alert, interacts well. No acute distress. HEAD: Normocephalic, atraumatic. EYES: Pupils equal, round, and reactive to light. Extraocular movements intact. ENT: Oral mucosa moist, tongue midline. Oropharynx unremarkable. Airway patent. LUNGS: Clear to auscultation bilaterally, no wheezes, rales, or rhonchi. No respiratory distress. Non-tender chest wall. Patient is wearing a life-vest. HEART: Regular rate and rhythm. No murmur ABDOMEN: Abdomen seems mildly distended, there is some tenderness mainly in the mid to upper left abdomen, there is some mild generalized tenderness otherwise. No guarding. Bowel sounds are quiet. GENITOURINARY: Deferred EXTREMITIES: Moves all 4 extremities spontaneously. No edema, normal radial and dorsalis pedis pulses bilaterally. No cyanosis. BACK: no cervical, thoracic, lumbar midline tenderness. No saddle anesthesia, normal distal neurovascular exam. Moves all extremities in full range of motion. NEUROLOGICAL: Alert and oriented x3. Normal speech. Cranial nerves II through XII grossly intact. Strength 5/5 in all extremities. PSYCH: Normal affect, normal mood. SKIN: Warm, dry, normal turgor. No rashes or lesions noted. Course - Re-evaluation Re-evalutation: On my exam patient indicates that he has left upper quadrant pain. He has tenderness in the left upper abdomen and in the left mid abdomen, some tenderness over the general abdomen as well. No guarding or rigidity. Patient reporting issues with bowel movements. He does not actually report to me any chest pain. Cardiac work-up was completed however because of patient's significant risk factors. Chest x-ray unremarkable, EKG nonspecific, troponin negative, CBC, chemistry nonspecific. Hyperglycemia noted without acidosis. X-ray of the abdomen was also performed and shows large amount of retained stool without obstruction. I discussed options with patient. Patient states he would prefer to have an enema because of his symptoms that are progressively worsening. This was performed, this did delay repeat troponin but troponin was still repeated and was negative. After enema patient had significant improvement in his symptoms, he states he feels a lot better, pain is almost resolved, he has no complaints, he states he is ready to go home. Very low suspicion of acute ACS or intrathoracic etiology. Low suspicion of acute abdomen. Discussed treatment, follow-up, return precautions in detail. Patient states appreciation and agreement. Stable and well-appearing at time of discharge. - Vital Signs Vital signs: Temp Pulse Resp BP Pulse Ox 97.6 F 74 16 125/76 98 02/25/20 01:00 02/25/20 01:00 02/25/20 06:01 02/25/20 06:01 02/25/20 06:01 - Laboratory Result Diagrams: 02/24/20 22:55 02/24/20 22:55 Laboratory results interpreted by me: 02/24/20 02/24/20 02/24/20 22:55 22:55 23:15 RDW 14.1 H Sodium 135.5 L Chloride 94 L BUN 26 H Glucose 319 H Urine Glucose (UA) >=500 H - EKG Interpretation by Me Additional EKG results interpreted by me: EKG shows sinus rhythm at a rate of 79, QTc 436, normal axis, no T wave inversions or ST segment changes in consecutive leads. There are some borderline lateral Q waves in leads I and aVL. Discharge - Discharge Clinical Impression: LUQ pain Constipation Qualifiers: Constipation type: unspecified constipation type Qualified Code(s): K59.00 - Constipation, unspecified Condition: Stable Disposition: HOME, SELF-CARE Additional Instructions: Your work-up today is reassuring, and your imaging does show a lot of retained stool, you were given an enema for this. You may need to take the colace stool softener for the next 2-4 days as well as prescribed. Take bentyl for cramping, zofran for nausea. Improve your diet - increased vegetables, fruits, fiber, and fluids are very helpful to clear your bowels. Follow-up very close with your primary care provider. Return if you worsen including developing chest pain, shortness of breath, fever, vomiting, severe worsening abdominal pain, or any other concerning symptoms. Prescriptions: Dicyclomine HCl [Bentyl 20 mg Tablet] 20 mg PO QID PRN #20 tablet PRN Reason: Docusate Sodium [Colace 100 mg Capsule] 100 mg PO ASDIR PRN #30 capsule PRN Reason: Ondansetron [Zofran Odt 4 mg Tablet] 1 - 2 tab PO Q4H PRN #15 tab.rapdis PRN Reason: For Nausea/Vomiting Forms: Return to School, Return to Work Referrals: DONALD CAMARGO MD [ACTIVE STAFF] - Follow up as needed
--- NOTE | 2020-02-24 23:05 | RADIOLOGY REPORT (SQ) ---
EXAM DESCRIPTION: XR ABDOMEN SUPINE AND ERECT WITH CHEST (ABD ACUTE SERIES) COMPLETED DATE/TME: 02/24/2020 22:16 CLINICAL HISTORY: 59 years, Male, left upper abd/chest pain; abd swelling COMPARISON: 11/08/2019 chest x-ray NUMBER OF VIEWS: 4 TECHNIQUE: Upright chest with supine and erect views of the abdomen LIMITATIONS: None. FINDINGS: Heart size is normal. Lungs are clear. No pneumothorax. No free air under the hemidiaphragms. Bowel gas pattern is nonspecific. Abundant stool in the colon. No free air IMPRESSION: Negative chest. Abundant stool in the colon copyright 2010 [employer]- All Rights Reserved
[2020-02-24 23:34] LABS: ABSOLUTE BASOPHILS # (AUTO) 0.1 10^3/uL (0.0-0.2); ABSOLUTE EOSINOPHILS # (AUTO) 0.1 10^3/uL (0.0-0.6); ABSOLUTE LYMPHOCYTES (AUTO) 2.1 10^3/uL (0.5-4.7); ABSOLUTE MONOCYTES (AUTO) 0.7 10^3/uL (0.1-1.4); ABSOLUTE NEUT (AUTO) 7.2 10^3/uL (1.7-8.2); BASOPHILS % (AUTO) 0.6 % (0-2); EOSINOPHILS % (AUTO) 0.7 % (0-6); HEMATOCRIT 46.3 % (37.9-51.0); HEMOGLOBIN 16.1 g/dL (13.5-17.0); MEAN CORPUSCULAR HEMOGLOBIN 29.4 pg (27.0-33.4); MEAN CORPUSCULAR HGB CONC 34.7 g/dL (32.0-36.0); MEAN CORPUSCULAR VOLUME 85 fl (80-97); MONOCYTES % (AUTO) 6.7 % (3-13); PLATELET COUNT 253 10^3/uL (150-450); RED BLOOD COUNT 5.48 10^6/uL (4.35-5.55); RED CELL DISTRIBUTION WIDTH 14.1 % (11.5-14.0); TOTAL CELLS COUNTED % (AUTO) 100 %; WHITE BLOOD COUNT 10.2 10^3/uL (4.0-10.5)
[2020-02-25 00:04] LABS: ALBUMIN 4.6 g/dL (3.5-5.0); ALKALINE PHOSPHATASE 115 U/L (38-126); ANION GAP 12 (5-19); ASPARTATE AMINO TRANSFERASE 23 U/L (17-59); BILIRUBIN,DIRECT 0.3 mg/dL (0.0-0.4); BILIRUBIN,TOTAL 0.7 mg/dL (0.2-1.3); BLOOD UREA NITROGEN 26 mg/dL (7-20); CALCIUM 9.4 mg/dL (8.4-10.2); CARBON DIOXIDE 30 mmol/L (22-30); CHLORIDE 94 mmol/L (98-107); GLUCOSE 319 mg/dL (75-110); POTASSIUM 4.3 mmol/L (3.6-5.0); TOTAL PROTEIN 7.7 g/dL (6.3-8.2)
--- NOTE | 2020-02-25 00:23 | EKG REPORT ---
SEVERITY:- ABNORMAL ECG - SINUS RHYTHM PROBABLE LEFT ATRIAL ABNORMALITY BORDERLINE LATERAL Q WAVES CONSIDER ANTEROSEPTAL INFARCT : Confirmed by: Domo Pompa 25-Feb-2020 00:22:50
[2020-02-25] MEDS ORDERED: MINERAL OIL 30 ML UDCUP PR ONE (00:51)
[2020-02-25 01:12] LABS: APPEARANCE,URINE CLEAR; BILIRUBIN,URINE NEGATIVE (NEGATIVE); COLOR,URINE STRAW; GLUCOSE, URINE >=500 mg/dL (NEGATIVE); KETONES,URINE NEGATIVE (NEGATIVE); LEUKOCYTE ESTERASE,URINE NEGATIVE (NEGATIVE); NITRITE,URINE NEGATIVE (NEGATIVE); PROTEIN,URINE NEGATIVE (NEGATIVE); URINE SPECIFIC GRAVITY 1.022; UROBILINOGEN,URINE NEGATIVE mg/dL (<2.0)
[2020-02-25 06:34] VITALS: BP 125/76
== END 2020-02-25 06:34 | disposition home or self-care (01) ==
LOC: ER 21:43
DX: K59.00 Constipation, unspecified (principal); R10.12 Left upper quadrant pain; R10.817 Generalized abdominal tenderness; K92.1 Melena; I25.10 Atherosclerotic heart disease of native coronary artery without angina pectoris; I10 Essential (primary) hypertension; J44.9 Chronic obstructive pulmonary disease, unspecified; E11.9 Type 2 diabetes mellitus without complications; I25.2 Old myocardial infarction; Z95.5 Presence of coronary angioplasty implant and graft; Z95.811 Presence of heart assist device; Z91.018 Allergy to other foods; Z87.19 Personal history of other diseases of the digestive system
CPT/HCPCS: 93005; 99285; 96374; 96375; 36415; 83690; 85025; 80053; 81001; 84484; 74022; 93010; A9270 ×3; J3010; J2405; J3490

== ENCOUNTER 2020-05-03 10:57 | Emergency (ER) | payer MEDICARE, MEDICAID ==
--- NOTE | 2020-05-03 11:33 | ER Document Report ---
ED Medical Screen (RME) - General Chief Complaint: Chest Pain Stated Complaint: CHEST PAIN, KNEE PAIN Time Seen by Provider: 05/03/20 11:09 Notes: HPI: 59-year-old male presenting with a sharp continuous left-sided chest pain with shortness of breath under the left breast region that began yesterday. Nothing specifically makes it better or worse. Patient states he had a heart attack in November that was treated in [place] and he received 2 stents. He is on Brilinta. Patient reports bruising to bilateral inner thighs. Patient's chemical pathologist is Dr. Kitchen PHYSICAL EXAMINATION: Lung sounds are clear to auscultation, regular rate and rhythm. There is bruising to the bilateral inner thighs I have greeted and performed a rapid initial assessment of this patient. A comprehensive ED assessment and evaluation of the patient, analysis of test results and completion of medical decision making process will be conducted by an additional ED providers. TRAVEL OUTSIDE OF THE [place] IN LAST 30 DAYS: No - Related Data Allergies/Adverse Reactions: No Known Drug Allergies Allergy (Verified 05/03/20 11:26) Cheese Allergy (Uncoded 05/03/20 11:26) VINEGAR Allergy (Uncoded 05/03/20 11:26) Hives Past Medical History - Social History Chew tobacco use (# tins/day): No Frequency of alcohol use: None Drug Abuse: None - Past Medical History Cardiac Medical History: Reports: Hx Coronary Artery Disease, Hx Heart Attack - x3, Hx Hypercholesterolemia, Hx Hypertension Pulmonary Medical History: Reports: Hx Asthma, Hx COPD, Hx Sleep Apnea Neurological Medical History: Denies: Hx Parkinson's Disease Endocrine Medical History: Reports: Hx Diabetes Mellitus Type 2 Renal/ Medical History: Denies: Hx Peritoneal Dialysis GI Medical History: Reports: Hx Gastroesophageal Reflux Disease Musculoskeltal Medical History: Reports Hx Arthritis, Reports Hx Musculoskeletal Deformity, Reports Hx Musculoskeletal Trauma Psychiatric Medical History: Reports: Hx Bipolar Disorder, Hx Depression, Hx Schizophrenia Traumatic Medical History: Reports: Hx Fractures Past Surgical History: Reports: Hx Cardiac Catheterization, Hx Cardiac Surgery - stent x1, Hx Coronary Stent, Hx Orthopedic Surgery - Bilateral total knee, Hx Tonsillectomy - Immunizations Immunizations up to date: Yes Hx Diphtheria, Pertussis, Tetanus Vaccination: Yes - 2013 Physical Exam - Vital signs Vitals: Temp Pulse Resp BP Pulse Ox 97.5 F 97 20 133/81 H 99 05/03/20 11:13 05/03/20 11:13 05/03/20 11:13 05/03/20 11:13 05/03/20 11:13 Course - Vital Signs Vital signs: Temp Pulse Resp BP Pulse Ox 97.5 F 97 20 133/81 H 99 05/03/20 11:13 05/03/20 11:13 05/03/20 11:13 05/03/20 11:13 05/03/20 11:13
--- NOTE | 2020-05-03 11:44 | EKG REPORT ---
SEVERITY:- DEFECTIVE ECG - RIGHT AND LEFT ARM LEADS REVERSED, PLEASE REPEAT ECG : Confirmed by: Kris Roa MD 03-May-2020 11:43:47
--- NOTE | 2020-05-03 11:55 | ER Document Report ---
ED General - General Chief Complaint: Chest Pain Stated Complaint: CHEST PAIN, KNEE PAIN Time Seen by Provider: 05/03/20 11:09 Notes: 59-year-old lady with a history of MT about 6 months ago at [place] currently wearing a LifeVest presents with chest pain sharp left-sided similar to past MT constant since yesterday's now about 20 hours, with shortness of breath. No nausea vomiting sweating. She says that the LifeVest was beeping like it was going to shock her and she turned it off twice. It also has not been transmitting because it is broken. He is on Brilinta and says she is compliant with all her meds TRAVEL OUTSIDE OF THE [place] IN LAST 30 DAYS: No - Related Data Allergies/Adverse Reactions: No Known Drug Allergies Allergy (Verified 05/03/20 11:26) Cheese Allergy (Uncoded 05/03/20 11:26) VINEGAR Allergy (Uncoded 05/03/20 11:26) Hives Past Medical History - Social History Smoking Status: Former Smoker Chew tobacco use (# tins/day): No Frequency of alcohol use: None Drug Abuse: None Family History: Reviewed & Not Pertinent, Arthritis, CAD, DM, Hyperlipidemia, Hypertension - Past Medical History Cardiac Medical History: Reports: Hx Coronary Artery Disease, Hx Heart Attack - x3, Hx Hypercholesterolemia, Hx Hypertension Pulmonary Medical History: Reports: Hx Asthma, Hx COPD, Hx Sleep Apnea Neurological Medical History: Denies: Hx Parkinson's Disease Endocrine Medical History: Reports: Hx Diabetes Mellitus Type 2 Renal/ Medical History: Denies: Hx Peritoneal Dialysis GI Medical History: Reports: Hx Gastroesophageal Reflux Disease Musculoskeletal Medical History: Reports Hx Arthritis, Reports Hx Musculoskeletal Deformity, Reports Hx Musculoskeletal Trauma Psychiatric Medical History: Reports: Hx Bipolar Disorder, Hx Depression, Hx Schizophrenia Traumatic Medical History: Reports: Hx Fractures Past Surgical History: Reports: Hx Cardiac Catheterization, Hx Cardiac Surgery - stent x1, Hx Coronary Stent, Hx Orthopedic Surgery - Bilateral total knee, Hx Tonsillectomy - Immunizations Immunizations up to date: Yes Hx Diphtheria, Pertussis, Tetanus Vaccination: Yes - 2013 Hx Pneumococcal Vaccination: 07/28/13 Review of Systems - Review of Systems Notes: REVIEW OF SYSTEMS GEN: Denies fever, chills, weight loss ENT: Denies sore throat, nasal discharge, ear pain EYES: Denies blurry vision, eye pain, discharge CV: Chest pain RESP: Denies cough, shortness of breath, wheezing GI: Denies abdominal pain, nausea, vomiting, diarrhea MSK: Denies joint pain/swelling, edema, SKIN: Denies rash, skin lesions LYMPH: Denies swollen glands/lymph nodes NEURO: Denies headache, focal weakness or numbness, dizziness PSYCH: Denies depression, suicidal or homicidal ideation PHYSICAL EXAMINATION General: No acute distress, well-nourished Head: Atraumatic, normocephalic ENT: Mouth normal, oropharynx moist, no exudates or tonsillar enlargement Eyes: Conjunctiva normal, pupils equal, lids normal Neck: No JVD, supple, no guarding CVS: Normal rate, regular rhythm, no murmurs. LifeVest in place. Resp: No resp distress, equal and normal breath sounds bilaterally GI: Nondistended, soft, no tenderness to palpation, no rebound or guarding Ext: Bilateral inner thigh ecchymosis 10 x 20 cm mild with no hematoma and lower ext Back: No CVA or midline TTP Skin: No rash, warm Lymphatic: No lymphadeopathy noted Neuro: Awake, alert. Face symmetric. GCS 15. Physical Exam - Vital signs Vitals: Temp Pulse Resp BP Pulse Ox 97.5 F 97 20 133/81 H 99 05/03/20 11:13 05/03/20 11:13 05/03/20 11:13 05/03/20 11:13 05/03/20 11:13 Course - Re-evaluation Re-evalutation: 05/03/20 12:57 Nonspecific chest pain in a patient with CAD prior MT with 2 stents. Similar index angina although pain-free in the ED. EKG unchanged with some elevation convex up in the V2 V3 area that is probably an LV aneurysm. No reciprocal change or true ST elevation or depression. Trope negative. Labs normal. Leg ecchymoses are probably due to minor trauma on antiplatelet agent LifeVest does not transmitting and I cannot mess with it at all apparently tried to stop the patient twice needs interrogation in service. Because of this patient appropriate for admission to [facility]. Discussed with Saira Long 05/03/20 17:33 Trope negative. Patient has been given aspirin and nitroglycerin pain is improved Patient is unexpectedly Covid positive. Reviewed with Saira Long. Patient is still accepted. See EMTALA for details - Vital Signs Vital signs: Temp Pulse Resp BP Pulse Ox 97.9 F 97 21 H 131/87 H 98 05/03/20 17:01 05/03/20 11:13 05/03/20 17:01 05/03/20 17:00 05/03/20 11:31 - Laboratory Result Diagrams: 05/03/20 11:35 05/03/20 11:35 Laboratory results interpreted by me: 05/03/20 05/03/20 11:35 11:35 WBC 10.9 H RBC 5.72 H Sodium 136.8 L Chloride 93 L BUN 31 H Glucose 199 H - EKG Interpretation by Me EKG shows normal: Sinus rhythm Rate: Normal Rhythm: NSR Voltage: Increased voltage When compared to previous EKG there are: No significant change - J-point elevation with convex curvature in the anterior leads most concerning for LV aneurysmunchanged since last EKG Discharge - Discharge Clinical Impression: Chest pain, unspecified Qualifiers: Chest pain type: unspecified Qualified Code(s): R07.9 - Chest pain, unspecified Condition: Fair Disposition: [facility]
[2020-05-03 12:02] LABS: ABSOLUTE BASOPHILS # (AUTO) 0.1 10^3/uL (0.0-0.2); ABSOLUTE LYMPHOCYTES (AUTO) 1.9 10^3/uL (0.5-4.7); ABSOLUTE MONOCYTES (AUTO) 0.8 10^3/uL (0.1-1.4); ABSOLUTE NEUT (AUTO) 8.1 10^3/uL (1.7-8.2); BASOPHILS % (AUTO) 0.6 % (0-2); EOSINOPHILS % (AUTO) 0.5 % (0-6); HEMATOCRIT 48.3 % (37.9-51.0); HEMOGLOBIN 16.7 g/dL (13.5-17.0); LYMPHOCYTES % (AUTO) 17.6 % (13-45); MEAN CORPUSCULAR HEMOGLOBIN 29.3 pg (27.0-33.4); MEAN CORPUSCULAR HGB CONC 34.6 g/dL (32.0-36.0); MEAN CORPUSCULAR VOLUME 85 fl (80-97); MONOCYTES % (AUTO) 6.9 % (3-13); PLATELET COUNT 287 10^3/uL (150-450); RED BLOOD COUNT 5.72 10^6/uL (4.35-5.55); RED CELL DISTRIBUTION WIDTH 13.9 % (11.5-14.0); SEGMENTED NEUTROPHILS % (AUTO) 74.4 % (42-78); TOTAL CELLS COUNTED % (AUTO) 100 %; WHITE BLOOD COUNT 10.9 10^3/uL (4.0-10.5)
[2020-05-03 12:15] LABS: INTERNATIONAL RATION (INR) 0.92; PROTHROMBIN TIME 12.6 SEC (11.4-15.4)
[2020-05-03 12:18] LABS: ANION GAP 16 (5-19); BLOOD UREA NITROGEN 31 mg/dL (7-20); CALCIUM 9.6 mg/dL (8.4-10.2); CARBON DIOXIDE 28 mmol/L (22-30); CHLORIDE 93 mmol/L (98-107); GLUCOSE 199 mg/dL (75-110); POTASSIUM 3.9 mmol/L (3.6-5.0)
[2020-05-03] MEDS ORDERED: NITROGLYCERIN 0.4 MG/TAB 25 TAB/BOTTLE SL PRN (15:13)
[2020-05-03] MEDS ORDERED: ASPIRIN 81 MG TABLET, CHEWABLE PO ONE (15:13)
[2020-05-03 19:03] VITALS: BP 110/77
== END 2020-05-03 19:37 | disposition short-term general hospital (02) ==
LOC: ER 10:57
DX: U07.1 COVID-19 (principal); R07.9 Chest pain, unspecified; R06.02 Shortness of breath; I25.10 Atherosclerotic heart disease of native coronary artery without angina pectoris; I25.2 Old myocardial infarction; J44.9 Chronic obstructive pulmonary disease, unspecified; E11.9 Type 2 diabetes mellitus without complications
CPT/HCPCS: 93005; 99284; 36415; 83690; 85025; 85610; 0241U ×4; 80048; 84484; 93010; A9270 ×2; C9803